=== PATIENT | female | born 1950 | race Caucasian/White ===

== ENCOUNTER 2017-06-11 11:17 | Emergency (ER) | payer MEDICARE, OTHER, MEDICAID ==
[~2017-06-11] VITALS: Ht 165.1 cm; Wt 186.0 kg
[~2017-06-11 11:17] MED LIST: ABILIFY 2 MG2 M1 PO; ABILIFY 5 MG TAB5 M1 PO; ABILIFY 5 MG TAB5 MG PO; ACCU-CHEK1 EACH; ACETAMINOPHEN650 M5; ADULT LOW DOSE81 MG PO; ADVAIR HFA 45-218 GM INH; ANTIVERT25 MG PO; ASPIR 8181 MG PO; BACTRIM DS TAB1 EACH PO; BACTROBAN CREAM30 G1; BENTYL 10 MG CA10 M1 PO; BENTYL 20 MG TA20 M1 PO; BENTYL20 MG PO; BICARSIM80 MG PO; BUSPAR 5 MG TABL5 M1 PO; BUSPIRONE HCL10 MG PO; BUSPIRONE PO; CARAFATE 1 GM TA1 G1 PO; CARISOPRODOL 3350 MG PO; CIPRO500 MG PO; COUMADIN 10MG T10 M1 PO; COUMADIN 2.5MG2.5 M1 PO; COUMADIN 5 MG TA5 M1 PO; COUMADIN7.5 MG PO; CREON DR 3,0001 EACH PO; CYMBALTA60 MG PO; DETROL LA2 MG PO; DETROL LA4 MG PO; DIAZEPAM 10 MG10 M1 PO; DIAZEPAM 5 MG5 M1 PO; DITROPAN XL10 M1 PO; FLAGYL500 MG PO; FLEXERIL PO; FUROSEMIDE 40 M40 M1 PO; GABAPENTIN100 MG PO; GLUCOPHAGE500 MG PO; GLUCOTROL5 MG PO; HYDROCODON-ACE1 EAC5 PO; HYDROCODON-ACE1 EAC7 PO; HYDROCODON-ACE1 EAC8 PO; HYDROCODONE-AP1 EA12 PO; HYDROXYZINE HCL50 MG PO; HYOSCYAMINE0.375 M2 PO; IRON325 PO; JARDIANCE10 MG PO; K-DUR 20 MEQ T20 MEQ PO; KEFLEX500 MG PO; KLOR-CON 1010 MEQ PO; KLOR-CON PO; KLOR-CON20 MEQ PO; LASIX 40 MG TAB40 M1 PO; LASIX 40 MG TAB40 M2 PO; LEVAQUIN 500 M500 M2 PO; LEVOTHYROXINE 0.1 MG PO; LEVOTHYROXINE100 MCG PO; LINZESS290 MCG PO; MEDROLDOSEPACK PO; MELOXICAM15 MG PO; METAMUCIL PAC1 UDPKT; METFORMIN HCL500 MG PO; METHOTREXATE 22.5 MG PO; MOM; MUPIROCIN1 GM TP; MUPIROCIN22 GM TP; NEURONTIN 300300 M1 PO; NITROGLYCERIN0.4 MG SUBLING; NORCO 5-325 TA1 EACH PO; NORFLEX100 MG PO; OMEPRAZOLE40 MG PO; OXYCODONE 5 MG; OXYCONTIN10 M1 PO; OXYIR 5 MG CAPSU5 M1; PERCOCET 5-3251 EACH PO; PERCOCET PO; PHENERGAN 25 MG25 M1 PO; POTASSIUM20 PO; PREDNISONE 10 M10 MG PO; PREDNISONE 20 M20 M1 PO; PREDNISONE50 MG PO; PRILOSEC 20 MG20 MG PO; PRILOSEC20 MG PO; PRILOSEC40 MG PO; PROTONIX40 M1 PO; PROZAC 20 MG20 M1 PO; PROZAC40 MG PO; RISPERDAL 1 MG T1 MG PO; RISPERIDONE PO; ROBAXIN 750 MG750 M1 PO; TEMAZEPAM15 MG PO; TRADJENTA5 MG; TRADJENTA5 MG PO; VALIUM5 MG PO; VANCO-0.9%1.75 GM/50 IVPB; VENTOLIN HFA 1818 GM INH; VIIBRYD10 MG; VIIBRYD40 MG PO; VISTARIL 25 MG25 M1 PO; XANAX 0.25 MG0.25 MG PO; XANAX1 MG PO; XARELTO10 M1; ZOFRAN4 MG PO; ZPAK PO
[2017-06-11 12:18] LABS: ANION GAP 10 mmol/L (7-16); BUN 17 mg/dL (7-18); CALCIUM 8.7 mg/dL (8.5-10.1); CHLORIDE 106 mmol/L (98-107); CO2 24 mmol/L (21-32); CREATININE 0.9 mg/dL (0.6-1.3); GLUCOSE 116 mg/dL (70-99); POTASSIUM 4.2 mmol/L (3.5-5.1); SODIUM 140 mmol/L (136-145)
[2017-06-11 12:29] LABS: ALBUMIN 3.3 g/dL (3.4-5.0); ALKALINE PHOSPHATASE 129 U/L (46-116); LIPASE 151 U/L (73-393); NT-PRO BRAIN NAT PEPTIDE 43 pg/mL (<300); SGOT 24 U/L (15-37); SGPT 25 U/L (30-65); TOTAL BILIRUBIN 0.3 mg/dL (<0.1-1.0); TOTAL PROTEIN 6.9 g/dL (6.4-8.2); TROPONIN-I LEVEL <0.06 ng/mL (<0.06)
[2017-06-11 12:48] LABS: HEMATOCRIT 32.6 % (37.0-47.0); HEMOGLOBIN 9.1 gm/dL (12.0-15.0); MCH 18.6 pg (26.0-34.0); MCHC 27.8 g/dL (28.0-37.0); MCV 66.8 fL (80.0-100.0); MPV 10.4 fl. (7.2-11.1); NUCLEATED RBCS 0 /100WBC; PLATELET COUNT* 212 thou/uL (150-400); RBC 4.89 mil/uL (4.20-5.00); RDW-CV 19.6 % (10.5-14.5); WBC 7.8 thou/uL (4.0-11.0)
[2017-06-11 12:58] LABS: PROTIME 21.9 Seconds (9.20-11.50)
[2017-06-11 12:59] LABS: APTT 38.5 Seconds (25.0-31.3); INR 2.3
[2017-06-11 13:18] LABS: INFLUENZA A ANTIGEN None Detected (None Detect); INFLUENZA B ANTIGEN None Detected (None Detect)
[2017-06-11 14:08] LABS: ABSOLUTE EOSINOPHILS 0.2 thou/uL (0.0-0.7); ABSOLUTE LYMPHOCYTES 1.7 thou/uL (0.8-5.3); ABSOLUTE MONOCYTES 0.2 thou/uL (0.0-1.2); ABSOLUTE NEUTROPHILS 5.6 thou/uL (1.6-8.1)
[2017-06-11 14:09] LABS: PLATELET ESTIMATE ADEQUATE
[2017-06-11 14:10] LABS: ANISOCYTOSIS 1+; HYPOCHROMASIA 3+; MICROCYTES 3+; OVALOCYTES 2+; POLYCHROMASIA 1+
[2017-06-11 15:25] LABS: URINE BILIRUBIN NEGATIVE (Negative); URINE BLOOD NEGATIVE (Negative); URINE CLARITY CLEAR; URINE COLOR YELLOW; URINE GLUCOSE-RANDOM 3+ (Negative); URINE KETONES TRACE (Negative); URINE LEUKOCYTES-REFLEX TRACE (Negative); URINE NITRITE-REFLEX NEGATIVE (Negative); URINE PROTEIN NEGATIVE (Negative); URINE UROBILINOGEN 0.2 E.U./dl (0.2-1.0)
[2017-06-11] MEDS ORDERED: MACROBID 100 M100 M1 PO (15:32)
[2017-06-11 15:33] LABS: SQUAMOUS >10 Many /LPF (0-3)
[2017-06-11 15:34] LABS: CASTS None Seen /LPF (None Seen); CRYSTALS None Seen /LPF (None Seen); MUCUS None Seen strn/LPF (None Seen)
[2017-06-11 15:35] LABS: URINE WBC-REFLEX 6-15 Few /HPF (0-5)
[2017-06-11 15:36] LABS: URINE RBC None Seen /HPF (0-2)
[2017-06-11 15:58] VITALS: BP 134/82
--- NOTE | 2017-06-11 16:56 | EKG ---
[place] [address] ELECTROCARDIOGRAM REPORT Name: ARMANDO MICHAEL Room: [facility]#: [id number] Admission: 06/11/17 Attend Phys: Discharge: 06/11/17 Date of : 54 Report #: [id number] THIS REPORT FOR: //name// [facility] ED Test Date: 2017-06-11 Test Time: 11:23:04 Pat Name: ARMANDO MICHAEL Department: Room: Gender: F Egg Smeller: Charles CONTRERAS : 1950 Requested By: Vidhya Lindsey Order Number: [id number] MD: Bob Castillo Measurements Intervals [place] Rate: 70 P: [place]: QRS: 30 QRSD: 110 T: 14 QT: 429 QTc: 463 Interpretive Statements Atrial fibrillation septal q waves Low voltage, precordial leads Compared to ECG 01/19/2017 09:17:16 Sinus rhythm no longer present Electronically Signed On 06-11-2017 16:56:44 AREA SALES MANAGER by Bob Castillo [email or web address] <ELECTRONICALLY SIGNED> By: Bob Castillo MD, [facility] 06/11/17 1656 1123 [id number] Bob Castillo MD, [facility] /EPI
== END 2017-06-11 15:58 | disposition home or self-care (01) ==
LOC: M.ERS 11:17
PROVIDERS: Personal Emergency Response Attendant
DX: R06.00 Dyspnea, unspecified (principal); E66.01 Morbid (severe) obesity due to excess calories; N39.0 Urinary tract infection, site not specified; M62.81 Muscle weakness (generalized); F32.9 Major depressive disorder, single episode, unspecified; F41.9 Anxiety disorder, unspecified; E11.9 Type 2 diabetes mellitus without complications; E03.9 Hypothyroidism, unspecified; Z88.8 Allergy status to other drugs, medicaments and biological substances; Z96.653 Presence of artificial knee joint, bilateral; Z86.14 Personal history of Methicillin resistant Staphylococcus aureus infection; Z90.710 Acquired absence of both cervix and uterus; Z88.0 Allergy status to penicillin; Z68.44 Body mass index [BMI] 60.0-69.9, adult

== ENCOUNTER → 2017-08-28 | Outpatient (CLI) | payer MEDICARE, OTHER, MEDICAID ==
[~2017-08-28] MED LIST changes: +CYMBALTA60 MG; +GLUCOTROL5 MG; +IPRAT-ALBUT 0.5-3 ML INH; +MACROBID 100 M100 M1 PO; +MYRBETRIQ50 MG; +PREDNISONE 10 M10 MG; +ZANTAC300 MG PO
--- NOTE | 2017-08-28 14:54 | 2DMMODE ---
[place] [address] 2 D/M-MODE ECHOCARDIOGRAM Name: ARMANDO MICHAEL Room: [facility]#: [id number] Admission: 08/28/17 Attend Phys: Gin Nunez Discharge: Date of : 54 Date of Service: 08/28/17 1454 Report #: [id number] THIS REPORT FOR: //name// APPROVED REPORT Study performed: 08/28/2017 13:45:21 EXAM: Limited 2D Echocardiogram Patient Location: Out-Patient BSA: 2.67 HR: 92 bpm BP: 140/58 mmHg Other Information Study Quality: Technically Limited Technically limited study due to body habitus. Indications Peripheral Edema Echo Enhancing Agent Indication: Endocardial border delineation Agent(s) / Amount(s) Used: Optison 6 cc Left Ventricle The left ventricle is normal size. The left ventricular systolic function is normal. The left ventricular ejection fraction is within the normal range. LVEF is 55-60%. Right Ventricle The right ventricle is normal size. Atria The left atrium size is normal. The right atrium size is normal. Aortic Valve The aortic valve is not well visualized. Mitral Valve Mitral valve is not well visualized. Tricuspid Valve Tricuspid valve is not well visualized. [place] [address] 2 D/M-MODE ECHOCARDIOGRAM Name: FERNANDAARMANDO W[place] Room: [facility].#: [id number] Admission: 08/28/17 Attend Phys: Gin Nunez Discharge: Date of : 54 Date of Service: 08/28/171453 Report #: [id number] Pulmonic Valve Pulmonic valve is not well visualized. Pericardium There is no pericardial effusion. <Conclusion> The left ventricular systolic function is normal. The left ventricular ejection fraction is within the normal range. <ELECTRONICALLY SIGNED> By: Bob Castillo MD, FACC 08/28/17 1454 53 Bob Castillo MD, FACC /INF
== END ==
LOC: M.CRD 08-21 08:00
DX: R60.0 Localized edema (principal)

== ENCOUNTER 2017-10-08 12:59 | Inpatient (IN) | payer MEDICARE, OTHER, MEDICAID ==
[~2017-10-08] VITALS: Ht 165.1 cm; Wt 182.3 kg
[~2017-10-08 12:59] MED LIST changes: -CYMBALTA60 MG; -GLUCOTROL5 MG; -IPRAT-ALBUT 0.5-3 ML INH; -MYRBETRIQ50 MG; -PREDNISONE 10 M10 MG; -ZANTAC300 MG PO
[2017-10-08] MEDS ORDERED: NORCO 5-325 TA1 EACH PO (13:09)
[2017-10-08 13:47] LABS: ANION GAP 6 mmol/L (7-16); BUN 12 mg/dL (7-18); CALCIUM 8.6 mg/dL (8.5-10.1); CHLORIDE 105 mmol/L (98-107); CO2 27 mmol/L (21-32); CREATININE 0.8 mg/dL (0.6-1.3); GLUCOSE 192 mg/dL (70-99); POTASSIUM 4.1 mmol/L (3.5-5.1); SODIUM 138 mmol/L (136-145)
[2017-10-08 13:52] LABS: APTT 39.7 Seconds (25.0-31.3); INR 2.8; PROTIME 27.1 Seconds (9.20-11.50)
[2017-10-08 13:53] LABS: ABSOLUTE BASOPHILS 0.1 thou/uL (0.0-0.2); ABSOLUTE EOSINOPHILS 0.1 thou/uL (0.0-0.7); ABSOLUTE LYMPHOCYTES 1.9 thou/uL (0.8-5.3); ABSOLUTE MONOCYTES 0.6 thou/uL (0.0-1.2); ABSOLUTE NEUTROPHILS 5.3 thou/uL (1.6-8.1); BASOPHILS 0.7 %; EOSINOPHILS 1.7 %; HEMATOCRIT 30.8 % (37.0-47.0); HEMOGLOBIN 8.9 gm/dL (12.0-15.0); LYMPHOCYTES 23.7 %; MCH 18.2 pg (26.0-34.0); MCV 62.8 fL (80.0-100.0); MONOCYTES 6.9 %; MPV 9.3 fl. (7.2-11.1); NUCLEATED RBCS 0 /100WBC; PLATELET COUNT* 223 thou/uL (150-400); RDW-CV 19.6 % (10.5-14.5)
[2017-10-08 13:57] LABS: ALBUMIN 3.1 g/dL (3.4-5.0); ALKALINE PHOSPHATASE 119 U/L (46-116); NT-PRO BRAIN NAT PEPTIDE 36 pg/mL (<300); SGOT 19 U/L (15-37); SGPT 18 U/L (30-65); TOTAL BILIRUBIN 0.3 mg/dL (<0.1-1.0); TOTAL PROTEIN 7.2 g/dL (6.4-8.2); TROPONIN-I LEVEL <0.06 ng/mL (<0.06)
[2017-10-08 14:30] LABS: PLATELET ESTIMATE ADEQUATE
[2017-10-08 14:32] LABS: ANISOCYTOSIS 1+; HYPOCHROMASIA 3+; MICROCYTES 3+; POLYCHROMASIA Occasional
[2017-10-08 14:33] LABS: OVALOCYTES Occasional; POIKILOCYTOSIS Occasional
[2017-10-08 15:13] LABS: URINE BILIRUBIN NEGATIVE (Negative); URINE BLOOD TRACE (Negative); URINE CLARITY CLEAR; URINE COLOR STRAW; URINE GLUCOSE-RANDOM 3+ (Negative); URINE KETONES NEGATIVE (Negative); URINE LEUKOCYTES-REFLEX 1+ (Negative); URINE NITRITE-REFLEX NEGATIVE (Negative); URINE PROTEIN NEGATIVE (Negative); URINE SPECIFIC GRAVITY 1.015 (1.005-1.030); URINE UROBILINOGEN 0.2 E.U./dl (0.2-1.0)
[2017-10-08 15:32] LABS: SQUAMOUS >10 Many /LPF (0-3)
[2017-10-08 15:33] LABS: CASTS None Seen /LPF (None Seen); CRYSTALS None Seen /LPF (None Seen); MUCUS None Seen strn/LPF (None Seen)
[2017-10-08 15:34] LABS: URINE RBC 0-2 Rare /HPF (0-2); URINE WBC-REFLEX 6-15 Few /HPF (0-5)
[2017-10-08 16:38] VITALS: BP 120/81
[2017-10-08 17:17] VITALS: BP 118/62
--- NOTE | 2017-10-08 17:23 | NUR ---
ADMISSION ASSESSMENT AND HISTORY COMPLETED REFER TO COMPUTER CHARTING. ELECTRICIAN SUPERVISOR SUBSTATION TRACKING SR. PATIENT RESTING IN BED REPORTING CHEST AND HEAD PAIN, MEDICATIONS GIVEN IN ER. BED IN LOW AND LOCKED POSITION. CALL LIGHT WITHIN REACH. 2 LITERS O2 VIA NASAL CANNULA. IV SALINE LOCKED. PATIENT EDUCATED ON BEING NPO AT MIDNIGHT FOR CARDILOGY. PATIENT REPORTING NO QUESTIONS OR CONCERNS AT THIS TIME. WILL CONTINUE TO MONITOR THIS SHIFT.
[2017-10-08 20:00] VITALS: BP 115/55
[2017-10-09] VITALS: BP 125/51
[2017-10-09 04:00] VITALS: BP 128/67
--- NOTE | 2017-10-09 07:48 | NUR ---
ASSUMED PT CARE AT 19:15. PT IS ALERT AWAKE ORIENTED X4. SHE COMPLAINS OF BAD RASH AND YEAST INFECTION IN PERINEUM AREA. PERINEUM AREA ASSESSED. REDNESS NOTICED IN CREASES. VITALS SIGNS ARE WITHIN NORMAL LIMIT. ON 2L O2 NC. SATURATION IS 96%. PT GETS UP ON OWN TO USE THE RESTROOM. HAS DIFFICULTY WHIPPING ON HER OWN. COMPLAINT ABOUT RASH AND YEAST WAS COMMUNICATED TO DR RIB BENDER. OBNETIME ORDER FOR FLUCONAZOLE WAS ORDERED AND ADMINISTERED ORDERED. BEFORE BEDTIME PAIN MED AND SLEEPING PILL WERE ADMINISTERED. IN THE AM. PT STILL COMPLAINS OF YEAST INFECTION. DR RIB BENDER WAS PAGED AND SUGGESTED TO ORDER SOME VAGINAL CREAM FOR BETTER CARE. PT IS NPO SINCE MIDNIGHT FOR CARDIOLOGY CONSULT. ACCUCHECK WAS CHECKEF AT MIDNINGHT AND DID NOT NEED INSULIN PER SLIDING SCALE. SLEPT WELL DRUING NIGHT AFTER SLEEPING PILL MED.
[2017-10-09 08:00] VITALS: BP 132/76
--- NOTE | 2017-10-09 10:25 | NUR ---
CM SPOKE TO THE PATIENT TO DISCUSS HOME SITUATION TO DISCUSS HOME SITUATION, DISCHARGE PLANNING, AND TO INFORM OF THE ROLE OF CM. PATIENT ALERT AND ORIENTED. PATIENT INDEPENDENT WITH ADL'S. PATIENT ABLE TO PERFORM COOKING, CLEANING, AND DRIVING. PATIENT INFORMS THAT HER ONLY SOURCE OF SUPPORT IS A FRIEND NOHEMI. PATIENT OWNS A WHEELCHAIR, CANE, AND WALKER, BUT ONLY OCCATIONALLY USED THE WALKER FOR MOBILITY. PATIENT HAS A HX OF AFTER A SURGERY, BUT COULD NOT RECALL THE NAME. PATIENT HAS A HX OF SNF AT [place] AND [facility]. PATIENT PLANS TO RETURN HOME AT D/C, AND DOES NOT ANTICIPATE ANY DISCHARGE PLANNING NEEDS. CM WILL REMAIN AVAILABLE TO ASSIST AND FOLLOW NEEDED.
[2017-10-09 11:30] VITALS: BP 117/51
[2017-10-09 15:48] VITALS: BP 144/73
--- NOTE | 2017-10-09 16:18 | EKG ---
[place] [address] ELECTROCARDIOGRAM REPORT Name: ARMANDO MICHAEL Room: [place] [address] ADM IN [facility].#: [id number] Admission: 10/08/17 Attend Phys: Castro Stahl Discharge: Date of : 54 Report #: [id number] THIS REPORT FOR: //name// [facility] ED Test Date: 2017-10-08 Test Time: 13:07:52 Pat Name: ARMANDO MICHAEL Department: Room: Gender: F Vascular Ultrasound Technician: : 1950 Requested By: Vidhya Lindsey Order Number: [id number] MD: David Albert Measurements Intervals [place] Rate: 88 P: [place]: QRS: 29 QRSD: 88 T: -3 QT: 362 QTc: 438 Interpretive Statements Sinus rhythm with pac's Low voltage, precordial leads Abnormal R-wave progression, early transition Borderline T abnormalities, anterior leads Compared to ECG 06/11/2017 11:23:04 T-wave abnormality now present Q waves no longer present Electronically Signed On 10-09-2017 16:18:00 CDT by David Albert [email or web address] <ELECTRONICALLY SIGNED> By: David Albert MD, [facility] 10/09/17 1618 1307 1307 David Albert MD, FAC /EPI
--- NOTE | 2017-10-09 16:39 | NUR ---
RECEIVED REPORT FROM PABLITO HENRANDEZ. ASSUMED CARE OF PT AROUND 0730. PT A&O X4, PLEASANT. VSS. O2 SAT 97% ON RA. PT STATES SHE WEARS A CPAP AT NIGHT AT HOME. PADDER CUSHION IN PLACE TRACING SR. LUNGS CLEAR/DIMINISHED IN THE BASES. AM ASSESSMENT AND VITALS COMPLETED CHARTED. IV TO LEFT AC SALINE LOCKED. PT REPORTED EPIGASTRIC PAIN LATE THIS AM THAT WAS RELIEVED WITH PO PAIN MEDICATION. PT NPO THIS AM FOR CARDIOLOGY CONSULT. PT ABLE TO EAT LUNCH WITHOUT DIFFICULTY. PT UP AD RADHA IN ROOM. PT CALLS OUT FOR ASSISTANCE WHEN SHE USES THE RESTROOM - NEEDS HELP CLEANING PARISH AREA. EXTENSIVE RED, EXCORIATED RASH NOTED UNDER ABDOMINAL FOLD AND IN PARISH AREA. DOCTOR NOTIFIED AND TREATMENT STARTED. PT AWAITING GI CONSULT. PT CURRENTLY WATCHING TV IN BED. LOW FALL RISK PRECAUTIONS IN PLACE. CALL LIGHT IS WITHIN REACH, HOURLY ROUNDING PERFORMED. WCTM FOR DURATION OF SHIFT.
--- NOTE | 2017-10-09 18:28 | NUR ---
VSS. O2 SAT >90% ON RA. PIE MAKER IN PLACE WITH NO CHANGES. PT DENIES PAIN AT THIS TIME. PT STATES SHE WOULD LIKE HOME HEALTH AT DISCHARGE. WILL CONSULT CASE MANAGEMENT. PT CURRENTLY SITTING UP IN BED. LOW FALL RISK PRECAUTIONS IN PLACE. CALL LIGHT IS WITHIN REACH. HOURLY ROUNDING PERFORMED. WCTM FOR DURATION OF SHIFT.
[2017-10-09 20:00] VITALS: BP 135/56
[2017-10-10] VITALS: BP 127/75
--- NOTE | 2017-10-10 04:13 | NUR ---
ASSUMED PT CARE AT 19:15. REPORT RECEIVED FROM NURSE. PT IS ALERT AWAKE ORIENTED X 4. NSR ON THE MONITOR. VITAL SIGNS ARE WITHIN NORMAL LIMIT. IV LINE PATENT COMPALIN OF PAIN INSHOULDER AREA, PAIN MED WAS ADMINSTERED ALONG WITH OHTER MED AND SOME SLEEPING PILL. NYSTATIN CREAM APPLIED IN ABDOMINAL CREASSES AND PERINEUM AREA PRESCRIBED. PT STATED THAT IT FEELS BETTER AFTER CREAME WAS APPLIED. SHE WANTS THE OXYGEN ON FOR THE NIGHT. SO O2 2 L NC SATURATION IS 95% ON RA. PT SLEPT DURING WHOLE NIGHT AFTER TAKEN SLEEPING PILL. WILL CONTINUE TO MONITOR
[2017-10-10 04:39] VITALS: BP 137/71
[2017-10-10 08:00] VITALS: BP 133/64
[2017-10-10 11:42] VITALS: BP 125/49
--- NOTE | 2017-10-10 15:23 | NUR ---
RECEIVED REPORT FROM LEANNE HERNANDEZ. ASSUMED CARE OF PT AROUND 0730. PT A&O X4. VSS. O2 SAT 99% ON 2L PER NC, TITRATED TO RA. INTERMEDIATE PROJECT MANAGER IN PLACE TRACING SR. AM ASSESSMENT AND VITALS COMPLETED CHARTED. IV TO LEFT AC INTACT AND SALINE LOCKED. PT REPORTED EPIGASTRIC PAIN AND BACK PAIN THIS AM THAT HAS BEEN MANAGED WITH PO PAIN MEDICATION. PT WENT DOWN FOR BARIUM SWALLOW THIS AFTERNOON - SEE RESULTS. PT EATING AND DRINKING WITHOUT ISSUE. NYSTATIN CREAM APPLIED TO PT'S RASH UNDER PANIS AND IN PARISH AREA. PT INFORMED OF PLAN OF CARE. PT COMMUNICATES UNDERSTANDING. PT HOPING TO GO HOME TOMORROW. PT CURRENTLY RESTING IN BED. CALL LIGHT IS WITHIN REACH, LOW FALL RISK PRECAUTIONS ARE IN PLACE. HOURLY ROUNDING PERFORMED. WCTM.
[2017-10-10 15:58] VITALS: BP 140/79
--- NOTE | 2017-10-10 18:22 | NUR ---
PT REMAINS A&O X4. VSS. O2 SAT >90% ON RA. WOOLING MACHINE OPERATOR REMAINS IN PLACE WITH NO CHANGES. PT ABLE TO EAT DINNER, BUT REQUESTED [place] [employer] FOR INDIGESTION. PT HAD SEVERAL VISITORS THIS AFTERNOON. WOOLING MACHINE OPERATOR REMAINS IN PLACE WITH NO CHANGES THIS SHIFT. IV TO LEFT AC INTACT AND SALINE LOCKED. PT CURRENTLY RESTING IN BED. LOW FALL PRECAUTIONS ARE IN PLACE. CALL LIGHT IS WITHIN REACH. HOURLY ROUNDING PERFORMED. WCTM FOR DURATION OF SHIFT.
[2017-10-10 20:00] VITALS: BP 113/51
[2017-10-11 00:53] VITALS: BP 117/42
--- NOTE | 2017-10-11 02:33 | NUR ---
ASSUMED PT CARE AT 19:15. REPORT RECEIVED FORM NURSE. PT IS ALERT, AWAKE, ORIETED X 4. SINUS RYTHM ONTHE MONITOR. ASSESSMENT PERFORMED. REFER TO RAQUEL. O2 SATURATION 95 ON RA. DISPLAYS NO SOB EXCEPT WHEN MOVING UP IN BED.ACCUCHECK 220. 4 UNITS OF LISPRO WAS ADMISTERED. PT IS CONCERNED ABOUT WHAT THE GI DOCTOR WILL DECIDE ABOUT HER CASE. I REINFORCE THAT THE DOCTOR WILL SEE HER TOMORROW AND GIVE HER MORE INFO ABOUT FOLLOW UP CARE. COMPLAIN OF PAIN LEVEL OF 6 IN THE CHEST AREA THAT RADIATES TO THE SHOULDER AND BACK. HYDROCODONE WAS AMDINSTERED TO CONTROL PAIN. SLEEPING PILL GIVEN TO HELP WITH SLEEP. NYSTATIN CREAM APPLIED IN CREASES AND PERINEUM AREA. MEDICATIONS WERE ADMNISTERED ORDERED. SNACK WAS PROVIDED. IV LINE IS PATENT. PT IS RESTING IN BED. WILL CONTINUE TO MONITOR.
[2017-10-11 04:11] VITALS: BP 112/58
[2017-10-11 08:00] VITALS: BP 122/75
--- NOTE | 2017-10-11 10:04 | NUR ---
Nutrition: Pt admitted for chest pain. Assessed for BMI >40. Pt has worsening GERD. To see GI today. CHO controlled diet ordered. BG 192, alb 3.1. Wt: 402#. No nutrition intervention needed today. Consider Low to Mild nutrition risk.
--- NOTE | 2017-10-11 10:21 | NUR ---
ASSUMED PT CARE AT 0700 PT IS ALERT AND ORIENTED X 4 PT DENIES PAIN OR SOA ON RA PT STATES PAIN MEDS HELPED, PT IS UP AD RADHA PT IS NOT A FALL RISK, PT IS SR ON THE MONITOR, AWAITING GI TO SEE PT FOR POSSIBLE DISCHRGE, PT C/O LOOSE STOOLS PAGED PHYSICIAN FOR ORDER FOR MEDS AWAITING CALL BACK, WILL CONTINUE TO MONITOR
[2017-10-11] MEDS ORDERED: OMEPRAZOLE40 MG PO (10:42)
[2017-10-11] MEDS ORDERED: ZANTAC300 MG PO (10:42)
[2017-10-11 11:52] VITALS: BP 129/53
[2017-10-11 12:12] VITALS: BP 129/53
[2017-10-11 13:26] VITALS: BP 129/53
--- NOTE | 2017-10-13 19:28 | CON ---
[address] [address] CONSULTATION Name: ARMANDO MICHAEL Room: [address] IN M.R.#: [id number] Admission: 10/08/17 Attend Phys: Castro Stahl Discharge: 10/11/17 Date of : 54 Report #: [id number] THIS REPORT FOR: //name// CC: Andrew Mabry DATE OF SERVICE: 10/10/2017 ADDENDUM REFERRING PHYSICIAN: Abhi Mabry, DO I have seen and examined the patient and I am not terribly impressed with her medical history. She has worsening acid reflux for which we will give her an increased dose of her omeprazole from 40 mg once daily to 40 mg twice daily, but add some ranitidine 300 mg at bedtime. Since she ate breakfast this morning, is not having any major issues that warrant endoscopic evaluation or endoscopic studies at this time. However, we can arrange for her to have an upper endoscopy done as an outpatient and at that time place a small bowel capsule for her recurrent and longstanding anemia. Since she is anxious to go home, it is okay from my standpoint for her to go home. I have already placed prescriptions for omeprazole 40 mg twice daily and Zantac 300 mg at bedtime on her chart. Our office will contact her to arrange for upper endoscopy and small bowel capsule placement. In addition, she needs some additional lab work to include CBC, CMP, sed rate, ferritin, hemoglobin electrophoresis soluble transferrin receptor assay and a B12 level prior to consideration of EGD with small bowel capsule study. Also after review of records from [place] and we will request records from Dr. Gomez to see if the patient ever followed up with her for her severe anemia, which appears to be related to iron-deficiency anemia. I have discussed these findings with the patient as well and she is agreeable to the same. <ELECTRONICALLY SIGNED> By: Everton Aviles DO 10/13/17 1928 1259 1406Everton Aviles DO /nt
--- NOTE | 2017-10-13 19:28 | CON ---
[facility] [address] [place] [address] CONSULTATION Name: ARMANDO MICHAEL Room: [address] IN M.R.#: [id number] Admission: 10/08/17 Attend Phys: Castro Stahl Discharge: 10/11/17 Date of : 54 Report #: [id number] THIS REPORT FOR: //name// CC: Andrew Mabry DO DICTATED BY: Karen Mtz [facility] DATE OF SERVICE: 10/10/2017 PRIMARY CARE PHYSICIAN: Andrew Kauffman M.D. The patient was seen and physically examined by myself at the time of consultation. REASON FOR CONSULTATION: Reflux and noncardiac chest pain. HISTORY OF PRESENT ILLNESS: This 67-year-old female presented to the Emergency Room after being seen by her PCP that morning that she went in due to increasing shortness of air which started the previous morning. The patient states that she has been having worsening of her shortness of air over the last couple of weeks, which she noted more recently with walking and moving. However, she had quit taking her Lasix because she was not making it to the bathroom room and having incontinence. She had also noticed some chest discomfort, which she states that it was substernal, some epigastric and then it radiated up into her shoulders and back area. The patient has had a cholecystectomy done in the past. The patient was last seen by us in 01/2017, at which time, she underwent an EGD and colonoscopy that showed a 2-cm hiatal hernia and erosive gastritis that was negative for H. pylori. Colonoscopy revealed sigmoid diverticulosis and moderate external hemorrhoids. The patient was to follow up with us in the office, but never did, to get a small bowel capsule for her further workup regarding her microcytic anemia. The patient is currently taking omeprazole 40 mg b.i.d. at home. She states that she will have worsening of her GERD, particularly after eating, though she denies any nausea or vomiting at this time. The patient states that her bowels move daily to every other day, soft and formed and no evidence of any bright red blood or any melena has been noted. The patient was seen by Cardiology on this admission and it was ruled noncardiac in nature and they have signed off. ALLERGIES: PENICILLIN AND REGLAN. MEDICATIONS: From home include Lasix, Glucophage, warfarin, Synthroid, Abilify, omeprazole, lancets, Tradjenta, Xanax, Advair, Jardiance, temazepam, Flexeril, [place] [address] CONSULTATION Name: ARMANDO MICHAEL Room: [address] IN M.R.#: [id number] Admission: 10/08/17 Attend Phys: Castro Stahl Discharge: 10/11/17 Date of : 54 Report #: [id number] Neurontin, Bentyl, Creon and Paia. PAST MEDICAL HISTORY: Hypothyroidism, depression, anxiety, morbid obesity, osd-vvkzgnu-cytzaaywq diabetic, chronic back pain and history of a PE in 2010. PAST SURGICAL HISTORY: She has had back surgery for herniated disk, bilateral knee replacements, left breast biopsy and hysterectomy. FAMILY HISTORY: Negative. SOCIAL HISTORY: Denies any alcohol, tobacco or illegal drug use. REVIEW OF SYSTEMS: Twelve-point review of systems is essentially negative, except what is mentioned in the HPI. PHYSICAL EXAMINATION: VITAL SIGNS: Temperature 36.3, pulse 71, respirations 19 and blood pressure 133/64. HEART: Regular rate and rhythm. LUNGS: Diminished, but clear. ABDOMEN: Soft. Positive bowel sounds in all 4 quadrants, with some xzwxsgcbuy-ja-qciuiwscid discomfort noted to palpation. Please note that the patient is morbidly obese. LABORATORY DATA: Hemoglobin is 8.9 with an MCV of 62.8, hematocrit is 30.8, white count is 8 and platelets 223,000. PT is 27.1, INR is 2.8. Sodium 138, potassium 4.1, chloride 105, CO2 of 27, BUN is 12, creatinine 0.8, GFR 72 and glucose is 192. Please note that the patient did have a CT scan back in 01/2017 during that admission that showed a fatty liver and had an area of thickening at the tail of the pancreas that was unchanged for the past 3 years. IMPRESSION: 1. Epigastric pain. 2. Worsening of her gastroesophageal reflux disease, particularly after eating. 3. Chronic anemia, microcytic. 4. Anticoagulant therapy, warfarin secondary to pulmonary embolism. 5. Morbid obesity. PLAN: 1. Barium swallow today. 2. If negative, may consider an EGD that will need to be off her anticoagulant therapy. 3. The patient will still need to follow up as an outpatient for her small bowel capsule regarding her anemia. 4. Further recommendations to be made after Dr. Aviles sees the patient. [address] [address] CONSULTATION Name: ARMANDO MICHAEL Room: [address] IN [place].#: [id number] Admission: 10/08/17 Attend Phys: Castro Stahl Discharge: 10/11/17 Date of : 54 Report #: [id number] Thank you for allowing us to participate in this patient's care. Please do not hesitate to call with any questions in regard to this consult. ADDENDUM REFERRING PHYSICIAN: Abhi Mabry, DO I have seen and examined the patient and I am not terribly impressed with her medical history. She has worsening acid reflux for which we will give her an increased dose of her omeprazole from 40 mg once daily to 40 mg twice daily, but add some ranitidine 300 mg at bedtime. Since she ate breakfast this morning, is not having any major issues that warrant endoscopic evaluation or endoscopic studies at this time. However, we can arrange for her to have an upper endoscopy done as an outpatient and at that time place a small bowel capsule for her recurrent and longstanding anemia. Since she is anxious to go home, it is okay from my standpoint for her to go home. I have already placed prescriptions for omeprazole 40 mg twice daily and Zantac 300 mg at bedtime on her chart. Our office will contact her to arrange for upper endoscopy and small bowel capsule placement. In addition, she needs some additional lab work to include CBC, CMP, sed rate, ferritin, hemoglobin electrophoresis soluble transferrin receptor assay and a B12 level prior to consideration of EGD with small bowel capsule study. Also after review of records from [place] and we will request records from Dr. Gomez to see if the patient ever followed up with her for her severe anemia, which appears to be related to iron-deficiency anemia. I have discussed these findings with the patient as well and she is agreeable to the same. <ELECTRONICALLY SIGNED> By: Everton Aviles DO 10/13/17 1928 1053 1113Garline Aviles DO /nt
== END 2017-10-11 13:58 | disposition home health service (06) | DRG 377 ==
LOC: M.ERS 12:59 → M.2W 14:35 → M.TBA-ER 14:35 → M.2W 17:10
PROVIDERS: Personal Emergency Response Attendant; ADMIT Internal Medicine
DX: K29.01 Acute gastritis with bleeding (principal); I50.33 Acute on chronic diastolic (congestive) heart failure; Z68.44 Body mass index [BMI] 60.0-69.9, adult; E66.01 Morbid (severe) obesity due to excess calories; F32.9 Major depressive disorder, single episode, unspecified; F41.9 Anxiety disorder, unspecified; E03.9 Hypothyroidism, unspecified; K21.9 Gastro-esophageal reflux disease without esophagitis; D50.9 Iron deficiency anemia, unspecified; E11.9 Type 2 diabetes mellitus without complications; Z96.653 Presence of artificial knee joint, bilateral; Z86.14 Personal history of Methicillin resistant Staphylococcus aureus infection; Z90.710 Acquired absence of both cervix and uterus; Z79.01 Long term (current) use of anticoagulants; Z79.84 Long term (current) use of oral hypoglycemic drugs; Z79.899 Other long term (current) drug therapy; Z88.0 Allergy status to penicillin; Z88.8 Allergy status to other drugs, medicaments and biological substances; Z80.8 Family history of malignant neoplasm of other organs or systems; Z83.3 Family history of diabetes mellitus

== ENCOUNTER 2017-12-08 11:27 | Observation (INO) | payer MEDICARE, OTHER, MEDICAID ==
[~2017-12-08] VITALS: Ht 165.1 cm; Wt 178.7 kg
[~2017-12-08 11:27] MED LIST changes: +ZANTAC300 MG PO
[2017-12-08 11:31] VITALS: BP 115/81
[2017-12-08 11:53] LABS: ABSOLUTE EOSINOPHILS 0.1 thou/uL (0.0-0.7); ABSOLUTE LYMPHOCYTES 1.8 thou/uL (0.8-5.3); ABSOLUTE MONOCYTES 0.5 thou/uL (0.0-1.2); ABSOLUTE NEUTROPHILS 3.4 thou/uL (1.6-8.1); BASOPHILS 0.8 %; EOSINOPHILS 1.6 %; HEMATOCRIT 39.3 % (37.0-47.0); HEMOGLOBIN 11.9 gm/dL (12.0-15.0); MCH 22.3 pg (26.0-34.0); MCHC 30.4 g/dL (28.0-37.0); MCV 73.3 fL (80.0-100.0); MONOCYTES 8.7 %; NUCLEATED RBCS 0 /100WBC; PLATELET COUNT* 190 thou/uL (150-400); POLYS 57.9 %; RBC 5.36 mil/uL (4.20-5.00); RDW-CV 29.1 % (10.5-14.5); WBC 5.9 thou/uL (4.0-11.0)
[2017-12-08 11:59] LABS: ANION GAP 5 mmol/L (7-16); BUN 10 mg/dL (7-18); CALCIUM 8.7 mg/dL (8.5-10.1); CHLORIDE 106 mmol/L (98-107); CO2 30 mmol/L (21-32); CREATININE 0.9 mg/dL (0.6-1.3); GLUCOSE 178 mg/dL (70-99); POTASSIUM 4.5 mmol/L (3.5-5.1); SODIUM 141 mmol/L (136-145)
[2017-12-08 12:10] LABS: ALBUMIN 3.2 g/dL (3.4-5.0); ALKALINE PHOSPHATASE 124 U/L (46-116); NT-PRO BRAIN NAT PEPTIDE 22 pg/mL (<300); SGOT 25 U/L (15-37); SGPT 43 U/L (30-65); TOTAL BILIRUBIN 0.3 mg/dL (<0.1-1.0); TOTAL PROTEIN 7.1 g/dL (6.4-8.2); TROPONIN-I LEVEL <0.06 ng/mL (<0.06)
[2017-12-08 12:12] LABS: APTT 43.1 Seconds (25.0-31.3); INR 3.3; PROTIME 31.6 Seconds (9.20-11.50)
[2017-12-08 12:31] LABS: ANISOCYTOSIS 2+; HYPOCHROMASIA 2+; MICROCYTES 1+
[2017-12-08 12:32] LABS: OVALOCYTES 1+; PLATELET ESTIMATE ADEQUATE
[2017-12-08 12:47] LABS: BE 0 mmol/L (-2 to +3); HCO3 25.1 mmol/L (22.0-26.0); PCO2 42.5 mmHg (35.0-45.0); PO2 105.5 mmHg (75.0-100.0); pH 7.389 (7.340-7.450)
[2017-12-08 15:38] VITALS: BP 125/45
[2017-12-08 15:50] VITALS: BP 141/85
[2017-12-08 20:00] VITALS: BP 143/60
[2017-12-09] VITALS: BP 125/74
[2017-12-09 04:00] VITALS: BP 128/68
[2017-12-09 08:00] VITALS: BP 138/73
[2017-12-09 11:39] VITALS: BP 188/60
[2017-12-09 15:53] VITALS: BP 133/75
--- NOTE | 2017-12-09 19:30 | EKG ---
[place] [address] ELECTROCARDIOGRAM REPORT Name: MARCOCURTIS WEIJANAE PERRYE Room: [address] IN [facility]#: [id number] Admission: 12/08/17 Attend Phys: Radha Becker MD Discharge: Date of : 54 Report #: [id number] THIS REPORT FOR: //name// [facility] ED Test Date: 2017-12-08 Test Time: 11:35:38 Pat Name: ARMANDO MICHAEL Department: Room: Gender: F Window Shade Ring Sewer: : 1950 Requested By: Cary Shea Order Number: [id number] MD: Rasheed White Measurements Intervals [place] Rate: 70 P: [place]: QRS: 44 QRSD: 109 T: -19 QT: 442 QTc: 477 Interpretive Statements Sinus rhythm with artifact Low voltage, precordial leads Borderline prolonged QT interval Baseline wander in lead(s) V2 Compared to previous EKG T-wave abnormality no longer present Electronically Signed On 12-09-2017 19:30:17 CDT by Rasheed White [email or web address] <ELECTRONICALLY SIGNED> By: Rasheed White MD, FACC 12/09/17 1930 1135 1135 Rasheed White MD, [facility] /EPI
[2017-12-09 20:00] VITALS: BP 131/56
[2017-12-10] VITALS: BP 118/47
[2017-12-10 04:00] VITALS: BP 128/58
[2017-12-10 08:17] VITALS: BP 142/79
[2017-12-10] MEDS ORDERED: NITROGLYCERIN0.4 MG SUBLING (09:48)
[2017-12-10] MEDS ORDERED: ASPIR 8181 MG PO (09:48)
[2017-12-10] MEDS ORDERED: VENTOLIN HFA 1818 GM INH (09:48)
[2017-12-10] MEDS ORDERED: IPRAT-ALBUT 0.5-3 ML INH (09:54)
[2017-12-10 11:01] VITALS: BP 142/79
== END 2017-12-10 11:47 | disposition home or self-care (01) ==
LOC: M.ERS 11:27 → M.TBA-ER 15:12 → M.2W 15:12
PROVIDERS: Nurse Practitioner Family; Personal Emergency Response Attendant; ADMIT Internal Medicine
DX: I20.0 Unstable angina (principal); R07.9 Chest pain, unspecified; J44.1 Chronic obstructive pulmonary disease with (acute) exacerbation; E66.01 Morbid (severe) obesity due to excess calories; I10 Essential (primary) hypertension; E11.8 Type 2 diabetes mellitus with unspecified complications; R53.81 Other malaise; F41.9 Anxiety disorder, unspecified; F32.9 Major depressive disorder, single episode, unspecified; E03.9 Hypothyroidism, unspecified; K29.70 Gastritis, unspecified, without bleeding; Z98.890 Other specified postprocedural states; Z90.710 Acquired absence of both cervix and uterus

== ENCOUNTER → 2018-02-05 | Outpatient (CLI) | payer MEDICARE, OTHER, MEDICAID ==
[~2018-02-05] MED LIST changes: +CYMBALTA60 MG; +GLUCOTROL5 MG; +IPRAT-ALBUT 0.5-3 ML INH; +MYRBETRIQ50 MG; +PREDNISONE 10 M10 MG
== END ==
LOC: M.MRI 02-03 07:30
DX: R25.1 Tremor, unspecified (principal); Z88.0 Allergy status to penicillin

== ENCOUNTER 2018-02-24 20:02 | Emergency (ER) | payer MEDICARE, OTHER, MEDICAID ==
[~2018-02-24] VITALS: Ht 165.1 cm; Wt 179.6 kg
[~2018-02-24 20:02] MED LIST changes: -CYMBALTA60 MG; -GLUCOTROL5 MG; -MYRBETRIQ50 MG; -PREDNISONE 10 M10 MG
[2018-02-24] MEDS ORDERED: CYMBALTA60 MG (20:26)
[2018-02-24] MEDS ORDERED: PREDNISONE 10 M10 MG (20:27)
[2018-02-24] MEDS ORDERED: GLUCOTROL5 MG (20:27)
[2018-02-24] MEDS ORDERED: MYRBETRIQ50 MG (20:28)
[2018-02-24 20:58] LABS: ABSOLUTE LYMPHOCYTES 2.7 thou/uL (0.8-5.3); ABSOLUTE NEUTROPHILS 5.4 thou/uL (1.6-8.1); HEMATOCRIT 44.6 % (37.0-47.0); NUCLEATED RBCS 0 /100WBC
[2018-02-24 21:03] LABS: CALCIUM 8.7 mg/dL (8.5-10.1); CREATININE 0.8 mg/dL (0.6-1.3); POTASSIUM 4.3 mmol/L (3.5-5.1)
[2018-02-24 21:04] LABS: ABSOLUTE BASOPHILS 0.1 thou/uL (0.0-0.2); ABSOLUTE EOSINOPHILS 0.1 thou/uL (0.0-0.7); ABSOLUTE MONOCYTES 0.6 thou/uL (0.0-1.2); BASOPHILS 1.4 %; EOSINOPHILS 0.6 %; HEMOGLOBIN 14.7 gm/dL (12.0-15.0); INR 1.6; LYMPHOCYTES 30.4 %; MCH 27.3 pg (26.0-34.0); MONOCYTES 7.2 %; MPV 9.2 fl. (7.2-11.1); PLATELET COUNT* 185 thou/uL (150-400); POLYS 60.4 %; PROTIME 16.7 Seconds (9.20-11.50); RBC 5.38 mil/uL (4.20-5.00); RDW-CV 19.6 % (10.5-14.5)
[2018-02-24 21:07] LABS: ALBUMIN 3.1 g/dL (3.4-5.0); TOTAL BILIRUBIN 0.5 mg/dL (<0.1-1.0); TOTAL PROTEIN 6.8 g/dL (6.4-8.2)
[2018-02-24 21:37] LABS: PLATELET ESTIMATE ADEQUATE
[2018-02-24 21:38] LABS: ANISOCYTOSIS 1+; LARGE PLATELETS OCCASIONAL
[2018-02-24 22:56] VITALS: BP 149/86
== END 2018-02-24 22:57 | disposition home or self-care (01) ==
LOC: M.ERS 20:02
PROVIDERS: Emergency Medicine
DX: S20.211A Contusion of right front wall of thorax, initial encounter (principal); W18.2XXA Fall in (into) shower or empty bathtub, initial encounter; Y93.89 Activity, other specified; Y92.89 Other specified places as the place of occurrence of the external cause; Y99.8 Other external cause status; F32.9 Major depressive disorder, single episode, unspecified; F41.9 Anxiety disorder, unspecified; E11.9 Type 2 diabetes mellitus without complications; E66.9 Obesity, unspecified; Z68.44 Body mass index [BMI] 60.0-69.9, adult; E03.9 Hypothyroidism, unspecified; Z90.710 Acquired absence of both cervix and uterus; Z96.653 Presence of artificial knee joint, bilateral; Z88.0 Allergy status to penicillin; Z88.8 Allergy status to other drugs, medicaments and biological substances

== ENCOUNTER 2018-04-23 20:36 | Inpatient (IN) | payer MEDICARE, OTHER ==
[~2018-04-23] VITALS: Ht 162.6 cm; Wt 178.7 kg
[~2018-04-23 20:36] MED LIST changes: +MYRBETRIQ50 MG PO; +PREDNISONE 10 M10 MG
[2018-04-23 20:45] VITALS: BP 145/70
[2018-04-23 21:21] LABS: ABSOLUTE LYMPHOCYTES 1.7 thou/uL (0.8-5.3); ABSOLUTE MONOCYTES 0.9 thou/uL (0.0-1.2); ABSOLUTE NEUTROPHILS 9.6 thou/uL (1.6-8.1); BASOPHILS 0.2 %; EOSINOPHILS 0.3 %; HEMATOCRIT 41.7 % (37.0-47.0); HEMOGLOBIN 13.5 gm/dL (12.0-15.0); LYMPHOCYTES 13.7 %; MCH 28.1 pg (26.0-34.0); MCHC 32.5 g/dL (28.0-37.0); MCV 86.6 fL (80.0-100.0); MONOCYTES 7.5 %; MPV 9.4 fl. (7.2-11.1); NUCLEATED RBCS 0 /100WBC; PLATELET COUNT* 215 thou/uL (150-400); POLYS 78.3 %; RBC 4.82 mil/uL (4.20-5.00); RDW-CV 15.6 % (10.5-14.5); WBC 12.2 thou/uL (4.0-11.0)
[2018-04-23 21:54] LABS: CALCIUM 8.7 mg/dL (8.5-10.1); POTASSIUM 3.8 mmol/L (3.5-5.1); TOTAL BILIRUBIN 0.7 mg/dL (<0.1-1.0); TOTAL PROTEIN 6.7 g/dL (6.4-8.2)
[2018-04-23 22:06] LABS: PROTIME 200.2 Seconds (9.20-11.50)
[2018-04-23 23:31] LABS: URINE BILIRUBIN NEGATIVE (Negative); URINE BLOOD 2+ (Negative); URINE CLARITY CLEAR; URINE COLOR YELLOW; URINE GLUCOSE-RANDOM 3+ (Negative); URINE KETONES TRACE (Negative); URINE LEUKOCYTES-REFLEX NEGATIVE (Negative); URINE NITRITE-REFLEX NEGATIVE (Negative); URINE PROTEIN NEGATIVE (Negative); URINE UROBILINOGEN 0.2 E.U./dl (0.2-1.0)
[2018-04-23 23:44] LABS: BACTERIA-REFLEX >30 Many /HPF (None Seen); CRYSTALS None Seen /LPF (None Seen); FINE GRANULAR CASTS 0-3 Few /LPF (None Seen); HYALINE CASTS 0-3 Few /LPF (None Seen); MUCUS 4-6 Moderate strn/LPF (None Seen); SQUAMOUS 4-10 Moderate /LPF (0-3); URINE WBC-REFLEX 6-15 Few /HPF (0-5)
[2018-04-24] VITALS (15 sets, daily range): BP systolic 101–152; BP diastolic 50–110
[2018-04-24 05:53] LABS: HEMATOCRIT 41.8 % (37.0-47.0); HEMOGLOBIN 13.3 gm/dL (12.0-15.0); MCHC 31.9 g/dL (28.0-37.0); MCV 87.8 fL (80.0-100.0); MPV 9.5 fl. (7.2-11.1); RBC 4.76 mil/uL (4.20-5.00); RDW-CV 15.9 % (10.5-14.5); WBC 12.6 thou/uL (4.0-11.0)
[2018-04-24 06:14] LABS: ALBUMIN 2.9 g/dL (3.4-5.0); CALCIUM 8.3 mg/dL (8.5-10.1); CREATININE 1.4 mg/dL (0.6-1.3); TOTAL BILIRUBIN 0.7 mg/dL (<0.1-1.0); TOTAL PROTEIN 6.8 g/dL (6.4-8.2)
[2018-04-24 06:15] LABS: POTASSIUM 4.8 mmol/L (3.5-5.1)
[2018-04-24 06:27] LABS: PROTIME > 210.1 Seconds (9.20-11.50)
[2018-04-24 06:28] LABS: INR > 18.0
[2018-04-24 06:41] LABS: BE -4.6 mmol/L (-2 to +3); HCO3 27.5 mmol/L (22.0-26.0); PCO2 89.6 mmHg (35.0-45.0); PO2 63.3 mmHg (75.0-100.0)
[2018-04-24 07:29] LABS: HCO3 26.4 mmol/L (22.0-26.0)
[2018-04-24 07:30] LABS: PCO2 74.7 mmHg (35.0-45.0); PO2 126.5 mmHg (75.0-100.0); pH 7.166 (7.340-7.450)
[2018-04-24 10:52] LABS: BE -2.7 mmol/L (-2 to +3); HCO3 26.8 mmol/L (22.0-26.0)
[2018-04-24 10:55] LABS: PCO2 69.4 mmHg (35.0-45.0); PO2 149.2 mmHg (75.0-100.0); pH 7.205 (7.340-7.450)
[2018-04-24 14:19] LABS: BE -3.6 mmol/L (-2 to +3); HCO3 25.1 mmol/L (22.0-26.0); PO2 95.4 mmHg (75.0-100.0); pH 7.223 (7.340-7.450)
[2018-04-24 14:20] LABS: PCO2 62.3 mmHg (35.0-45.0)
[2018-04-24 14:35] LABS: PROTIME 33.7 Seconds (9.20-11.50)
[2018-04-24 14:38] LABS: INR 3.3
[2018-04-24 20:47] LABS: INR > 18.0
[2018-04-24 20:48] LABS: APTT > 198.4 Seconds (25.0-31.3)
[2018-04-25] VITALS (12 sets, daily range): BP systolic 94–134; BP diastolic 40–76
[2018-04-25 05:06] LABS: BE -6.5 mmol/L (-2 to +3); HCO3 21.3 mmol/L (22.0-26.0)
[2018-04-25 05:08] LABS: PCO2 52.3 mmHg (35.0-45.0); PO2 140.8 mmHg (75.0-100.0); pH 7.227 (7.340-7.450)
[2018-04-25 07:39] LABS: MCH 28.4 pg (26.0-34.0); MCV 88.8 fL (80.0-100.0); MPV 9.2 fl. (7.2-11.1); RBC 3.83 mil/uL (4.20-5.00); RDW-CV 15.7 % (10.5-14.5); WBC 6.9 thou/uL (4.0-11.0)
[2018-04-25 07:44] LABS: HEMOGLOBIN 10.9 gm/dL (12.0-15.0)
[2018-04-25 07:50] LABS: ALBUMIN 2.4 g/dL (3.4-5.0); CREATININE 1.3 mg/dL (0.6-1.3); MAGNESIUM 1.9 mg/dL (1.8-2.4); TOTAL BILIRUBIN 0.4 mg/dL (<0.1-1.0)
[2018-04-25 07:55] LABS: INR 3.9; PROTIME 39.3 Seconds (9.20-11.50)
[2018-04-25 12:01] LABS: BE -0.5 mmol/L (-2 to +3); HCO3 26.7 mmol/L (22.0-26.0); PO2 93.9 mmHg (75.0-100.0)
[2018-04-25 12:02] LABS: pH 7.296 (7.340-7.450)
[2018-04-26 00:14] VITALS: BP 98/31
[2018-04-26 04:00] VITALS: BP 96/53
[2018-04-26 04:59] LABS: HEMATOCRIT 33.6 % (37.0-47.0); HEMOGLOBIN 10.9 gm/dL (12.0-15.0); MCH 28.6 pg (26.0-34.0); MCHC 32.4 g/dL (28.0-37.0); MCV 88.3 fL (80.0-100.0); MPV 9.9 fl. (7.2-11.1); RBC 3.8 mil/uL (4.20-5.00); RDW-CV 15.3 % (10.5-14.5); WBC 6.9 thou/uL (4.0-11.0)
[2018-04-26 05:30] LABS: INR 3.2; PROTIME 32.1 Seconds (9.20-11.50)
[2018-04-26 05:32] LABS: CALCIUM 8.6 mg/dL (8.5-10.1); CREATININE 1.2 mg/dL (0.6-1.3); POTASSIUM 4.9 mmol/L (3.5-5.1)
[2018-04-26 12:00] VITALS: BP 141/69
[2018-04-26 16:00] VITALS: BP 116/56
[2018-04-26 22:00] VITALS: BP 106/49
[2018-04-26 23:59] VITALS: BP 144/41
[2018-04-27 04:25] VITALS: BP 132/39
[2018-04-27 05:18] LABS: HEMATOCRIT 32.8 % (37.0-47.0); HEMOGLOBIN 10.7 gm/dL (12.0-15.0); MCH 28.9 pg (26.0-34.0); MCHC 32.7 g/dL (28.0-37.0); MCV 88.2 fL (80.0-100.0); MPV 9.7 fl. (7.2-11.1); RBC 3.72 mil/uL (4.20-5.00); RDW-CV 14.8 % (10.5-14.5); WBC 5.1 thou/uL (4.0-11.0)
[2018-04-27 05:29] LABS: CALCIUM 8.4 mg/dL (8.5-10.1); CREATININE 0.9 mg/dL (0.6-1.3); POTASSIUM 4.8 mmol/L (3.5-5.1)
[2018-04-27 05:42] LABS: INR 1.9; PROTIME 19.1 Seconds (9.20-11.50)
[2018-04-27 08:15] VITALS: BP 123/52
[2018-04-27 11:58] VITALS: BP 129/69
[2018-04-27 17:06] VITALS: BP 150/83
[2018-04-27 20:00] VITALS: BP 146/80
[2018-04-28] VITALS: BP 126/63
[2018-04-28 04:00] VITALS: BP 130/51
[2018-04-28 05:12] LABS: INR 1.4; PROTIME 14.7 Seconds (9.20-11.50)
[2018-04-28 08:10] VITALS: BP 113/62
[2018-04-28 12:00] VITALS: BP 144/68
[2018-04-28 16:00] VITALS: BP 125/73
[2018-04-28 20:00] VITALS: BP 124/71
[2018-04-29] VITALS: BP 106/45
[2018-04-29 04:00] VITALS: BP 116/41
[2018-04-29 05:01] LABS: INR 1.5
[2018-04-29 08:30] VITALS: BP 117/65
[2018-04-29 09:54] LABS: BE 1.5 mmol/L (-2 to +3); HCO3 27.1 mmol/L (22.0-26.0); PCO2 46.7 mmHg (35.0-45.0); PO2 107.2 mmHg (75.0-100.0); pH 7.381 (7.340-7.450)
[2018-04-29 12:00] VITALS: BP 122/71; BP 146/43
[2018-04-29 16:00] VITALS: BP 102/81
[2018-04-30] VITALS (9 sets, daily range): BP systolic 112–133; BP diastolic 45–83
[2018-04-30 05:15] LABS: INR 1.6; PROTIME 16.3 Seconds (9.20-11.50)
[2018-04-30] MEDS ORDERED: PREDNISONE 20 M20 MG PO ×2 (15:36)
[2018-04-30] MEDS ORDERED: NYAMYC15 GM TOP ×2 (15:36)
[2018-04-30] MEDS ORDERED: NEXIUM40 MG PO ×2 (15:36)
[2018-04-30] MEDS ORDERED: AUGMENTIN 875-1 EACH PO ×2 (15:36)
== END 2018-04-30 17:53 | disposition home health service (06) | DRG 871 ==
LOC: M.ERS 20:36 → M.TBA-ER 23:51 → M.ICU 23:51 → M.2W 04-24 01:17 → M.ICU 04-24 07:28 → M.3W 04-25 15:34
PROVIDERS: Family Medicine; Internal Medicine; Internal Medicine Pulmonary Disease; Nurse Practitioner Family; ADMIT Internal Medicine
PROC: 30233K1 Transfusion of Nonautologous Frozen Plasma into Peripheral Vein, Percutaneous Approach (ICD-10-PCS; principal; 2018-04-24)
PROC: 5A09457 Assistance with Respiratory Ventilation, 24-96 Consecutive Hours, Continuous Positive Airway Pressure (ICD-10-PCS; principal; 2018-04-24)
PROC: 30233L1 Transfusion of Nonautologous Fresh Plasma into Peripheral Vein, Percutaneous Approach (ICD-10-PCS; principal; 2018-04-24)
PROC: 5A09357 Assistance with Respiratory Ventilation, Less than 24 Consecutive Hours, Continuous Positive Airway Pressure (ICD-10-PCS; 2018-04-25)
PROC: 5A09357 Assistance with Respiratory Ventilation, Less than 24 Consecutive Hours, Continuous Positive Airway Pressure (ICD-10-PCS; 2018-04-28)
DX: A41.9 Sepsis, unspecified organism (principal); G92 Toxic encephalopathy; J96.02 Acute respiratory failure with hypercapnia; J96.01 Acute respiratory failure with hypoxia; N17.0 Acute kidney failure with tubular necrosis; Z68.44 Body mass index [BMI] 60.0-69.9, adult; E87.1 Hypo-osmolality and hyponatremia; N12 Tubulo-interstitial nephritis, not specified as acute or chronic; E66.2 Morbid (severe) obesity with alveolar hypoventilation; E87.2 Acidosis; D68.32 Hemorrhagic disorder due to extrinsic circulating anticoagulants; J44.1 Chronic obstructive pulmonary disease with (acute) exacerbation; B96.20 Unspecified Escherichia coli [E. coli] as the cause of diseases classified elsewhere; F32.9 Major depressive disorder, single episode, unspecified; E66.9 Obesity, unspecified; E11.9 Type 2 diabetes mellitus without complications; F41.1 Generalized anxiety disorder; Z96.653 Presence of artificial knee joint, bilateral; E03.9 Hypothyroidism, unspecified; T45.515A Adverse effect of anticoagulants, initial encounter; Y92.89 Other specified places as the place of occurrence of the external cause; Z86.14 Personal history of Methicillin resistant Staphylococcus aureus infection; Z90.710 Acquired absence of both cervix and uterus; Z79.01 Long term (current) use of anticoagulants; Z79.84 Long term (current) use of oral hypoglycemic drugs; Z86.711 Personal history of pulmonary embolism; Z79.899 Other long term (current) drug therapy; Z88.0 Allergy status to penicillin; Z88.8 Allergy status to other drugs, medicaments and biological substances; Z80.8 Family history of malignant neoplasm of other organs or systems; Z83.3 Family history of diabetes mellitus

== ENCOUNTER → 2018-05-15 | Outpatient (CLI) | payer MEDICARE, OTHER ==
[~2018-05-15] MED LIST changes: +AUGMENTIN 875-1 EACH PO; +NEXIUM40 MG PO; +NYAMYC15 GM TOP; +PREDNISONE 20 M20 MG PO
== END ==
LOC: M.CT 13:16
DX: K76.0 Fatty (change of) liver, not elsewhere classified (principal); N12 Tubulo-interstitial nephritis, not specified as acute or chronic; K27.3 Acute peptic ulcer, site unspecified, without hemorrhage or perforation; N39.0 Urinary tract infection, site not specified; K29.70 Gastritis, unspecified, without bleeding; Z90.710 Acquired absence of both cervix and uterus

== ENCOUNTER 2018-05-28 11:48 | Inpatient (IN) | payer MEDICARE, OTHER ==
[~2018-05-28] VITALS: Ht 165.1 cm; Wt 174.6 kg
--- NOTE | ~2018-05-28 | CON ---
[address] [address] CONSULTATION Name: MARCOFEDERICOJustinARMANDOJANAE DELAROSA Room: [address] IN M.R.#: [id number] Admission: 05/28/18 Attend Phys: Rhoda Irby MD Discharge: Date of : 54 Report #: [id number] THIS REPORT FOR: //name// CC: CHRISTIANO physician/PCP Rhoda Irby DATE OF SERVICE: 05/31/2018 REASON FOR CONSULTATION: Chest pain, abnormal EKG, possible tachycardia. HISTORY OF PRESENT ILLNESS: The patient is a morbidly obese 67-year-old female who is admitted for chest pain and apparently an abnormal ECG at a doctor's office, he is at [facility]. Overnight, she was evaluated with serial cardiac troponin levels and they have all been normal. There is concern she had an atrial arrhythmia, but in fact she has a fairly significant resting tremor and all the telemetry strips reviewed by myself on the other second lead shows sinus rhythm. Historically, the patient does not complain of palpitations. She is quite anxious, though. She has chronic shortness of breath with activity. She is morbidly obese at 181 kilograms, is too heavy for our scanning table. Apparently, she had been seen by Dr. White and arrangements have been made for her to be scanned at [place] [facility] with a heavier duty table. She has no documented history of heart disease, but numerous cardiovascular risk factors. This includes morbid obesity, diabetes, hypertension, and hyperlipidemia. She also has degenerative joint disease, has peptic ulcer disease, sciatica, thrombosis. ALLERGIES: SHE HAS ALLERGIES TO METOCLOPRAMIDE, PENICILLIN. HOME MEDICATIONS: Include Synthroid, metformin, warfarin 10 mg daily, insulin Jardiance 10 mg daily, glipizide 5 mg p.o. b.i.d., Myrbetriq 50 mg daily, Tylenol No. 3. and alprazolam. REVIEW OF SYSTEMS: GENERAL: No fevers or chills. PULMONARY: No wheezing. MUSCULOSKELETAL: Positive chronic tremor, bilateral upper extremities. NEUROLOGIC: No headaches or seizures. SKIN: No rashes. CARDIOVASCULAR: No orthopnea, no PND. Positive dyspnea [place] [address] CONSULTATION Name: ARMANDO MICHAEL Room: [address] IN [facility]#: [id number] Admission: 05/28/18 Attend Phys: Rhoda Irby MD Discharge: Date of : 54 Report #: [id number] chest pain. ENDOCRINE: Positive diabetes, positive thyroid disease. PHYSICAL EXAMINATION: VITAL SIGNS: Blood pressure is 140/89, pulse 67, temperature is 36.4. GENERAL: Pleasant middle-aged woman. She is sitting up in a chair. She is conversant. She is in no apparent distress. HEENT: Eyes: EOMs intact. No facial asymmetry. NECK: Supple. No jugular venous distention. Upstrokes are normal. CARDIOVASCULAR: Regular. I cannot hear a murmur. Otherwise, heart tones are somewhat distant. LUNGS: Clear to auscultation. EXTREMITIES: There is mild nonpitting edema in lower extremities. NEUROLOGIC: There are no focal deficits. DIAGNOSTIC STUDIES: Electrocardiogram demonstrates artifact, but a sinus rhythm. There is flattening of her ST segment changes. LABORATORY DATA: Her hemoglobin is 12.2, white blood cell count 7.9, platelet count is 166,000. INR is 1.1. Chest x-ray shows mild cardiomegaly with slight vascular congestion without findings of acute infiltrate or effusion. IMPRESSION: 1. Chest pain. She was ruled out for a myocardial infarction and I would continue with outpatient plans for pharmacologic nuclear stress test at [facility]. Her symptoms seem pleuritic. 2. Hypertension, stable. 3. Diabetes mellitus. 4. Abnormal EKG. Based on her resting tremor, serial telemetry evaluations by myself indicates she is in the sinus rhythm and this is artifact from tremor. By: 1159 [id number] Barber MD, FACC /nt
[~2018-05-28 11:48] MED LIST changes: +GLUCOPHAGE XR750 MG PO; -LEVOTHYROXINE 0.1 MG PO; -METFORMIN HCL500 MG PO; +SYNTHROID100 MC1 PO
[2018-05-28 11:49] VITALS: BP 156/73
[2018-05-28 12:21] LABS: HEMATOCRIT 40.3 % (37.0-47.0); HEMOGLOBIN 13.1 gm/dL (12.0-15.0); MCH 28.2 pg (26.0-34.0); MCHC 32.5 g/dL (28.0-37.0); MCV 86.7 fL (80.0-100.0); MPV 9.1 fl. (7.2-11.1); NUCLEATED RBCS 0 /100WBC; PLATELET COUNT* 182 thou/uL (150-400); RBC 4.65 mil/uL (4.20-5.00); WBC 13.9 thou/uL (4.0-11.0)
[2018-05-28 12:26] LABS: ANION GAP 7 mmol/L (7-16); BUN 17 mg/dL (7-18); CHLORIDE 99 mmol/L (98-107); CO2 30 mmol/L (21-32); CREATININE 1.1 mg/dL (0.6-1.3); GLUCOSE 180 mg/dL (70-99); SODIUM 136 mmol/L (136-145)
[2018-05-28 12:30] LABS: APTT 28.6 Seconds (25.0-31.3); INR 1.2; PROTIME 12.3 Seconds (9.20-11.50)
[2018-05-28 12:41] LABS: ALBUMIN 3.1 g/dL (3.4-5.0); ALKALINE PHOSPHATASE 108 U/L (46-116); LIPASE 126 U/L (73-393); SGOT 16 U/L (15-37); SGPT 25 U/L (30-65); TOTAL BILIRUBIN 0.6 mg/dL (<0.1-1.0); TOTAL PROTEIN 6.9 g/dL (6.4-8.2); TROPONIN-I LEVEL <0.06 ng/mL (<0.06)
[2018-05-28 12:52] LABS: ABSOLUTE BASOPHILS 0.1 thou/uL (0.0-0.2); ABSOLUTE LYMPHOCYTES 1.1 thou/uL (0.8-5.3); ABSOLUTE MONOCYTES 0.8 thou/uL (0.0-1.2); ABSOLUTE NEUTROPHILS 11.8 thou/uL (1.6-8.1)
[2018-05-28 12:53] LABS: PLATELET ESTIMATE ADEQUATE
[2018-05-28 12:54] LABS: MICROCYTES 2+
[2018-05-28 12:58] LABS: NT-PRO BRAIN NAT PEPTIDE 52 pg/mL (<300)
[2018-05-28 14:16] LABS: INFLUENZA A ANTIGEN None Detected (None Detect); INFLUENZA B ANTIGEN None Detected (None Detect)
--- NOTE | 2018-05-28 14:21 | NUR ---
PT GIVEN PERMISSION FOR WENDY GONZALEZ TO RECEIVE PATIENT CARE INFORMATION.
[2018-05-28 15:03] LABS: HCO3 21.8 mmol/L (22.0-26.0); PCO2 38.3 mmHg (35.0-45.0); PO2 92.9 mmHg (75.0-100.0); pH 7.373 (7.340-7.450)
[2018-05-28 17:54] VITALS: BP 123/50
[2018-05-28 18:00] VITALS: BP 120/88
--- NOTE | 2018-05-28 18:39 | NUR ---
RECEIVED REPORT FROM HITESH IN ED AND ASSUMED CARE OF PT @ 1800.PT IS A/O X4,VSS,TRACING SR ON THE MONITOR.PT REMAINS ON 2L O2 NC.ASSESSMENT CHARTED.IV PATENT AND SALINE LOCKED.PT IS CALM AND COOPERATIVE WITH C/O PAIN IN CHEST.PT LEFT SITTING AT EDGE OF BED EATING.CALL LIGHT AND FALL PRECAUTION IN PLACE.WILL CONTINUE TO MONITOR FOR DURATION OF SHIFT.
--- NOTE | 2018-05-28 18:49 | EKG ---
[place] [address] ELECTROCARDIOGRAM REPORT Name: ARMANDO MICHAEL Room: [address] ADM IN [facility].#: [id number] Admission: 05/28/18 Attend Phys: Rhoda Irby MD Discharge: Date of : 54 Report #: [id number] THIS REPORT FOR: //name// [facility] ED Test Date: 2018-05-28 Test Time: 11:52:09 Pat Name: ARMANDO MICHAEL Department: Room: [facility] Gender: F Correctional Security Officer: RUBY : 1950 Requested By: Vidhya Lindsey Order Number: [id number] MD: Rasheed White Measurements Intervals [place] Rate: 103 P: [place]: QRS: 21 QRSD: 87 T: QT: 379 QTc: 496 Interpretive Statements Sinus rhythm Low voltage, precordial leads Borderline abnrm T, anterolateral leads Borderline prolonged QT interval Compared to ECG 12/08/2017 11:35:38 no significant changes noted Electronically Signed On 05-28-2018 18:49:44 CARDIAC CATH LAB MANAGER by Rasheed White [email or web address] <ELECTRONICALLY SIGNED> By: Rasheed White MD, FACC 05/28/18 1849 1152 1152 Rasheed White MD, [facility] /EPI
[2018-05-28 20:06] VITALS: BP 104/43
[2018-05-28 21:24] LABS: URINE BILIRUBIN NEGATIVE (Negative); URINE BLOOD 1+ (Negative); URINE CLARITY CLEAR; URINE COLOR YELLOW; URINE GLUCOSE-RANDOM 3+ (Negative); URINE KETONES NEGATIVE (Negative); URINE LEUKOCYTES-REFLEX NEGATIVE (Negative); URINE NITRITE-REFLEX NEGATIVE (Negative); URINE PROTEIN NEGATIVE (Negative); URINE UROBILINOGEN 0.2 E.U./dl (0.2-1.0)
[2018-05-28 21:32] LABS: HYALINE CASTS 0-3 Few /LPF (None Seen); MUCUS None Seen strn/LPF (None Seen); SQUAMOUS >10 Many /LPF (0-3)
[2018-05-28 21:33] LABS: URINE RBC 0-2 Rare /HPF (0-2); URINE WBC-REFLEX 6-15 Few /HPF (0-5)
[2018-05-28 21:34] LABS: BACTERIA-REFLEX 1-9 Few /HPF (None Seen); CRYSTALS None Seen /LPF (None Seen)
[2018-05-29] VITALS: BP 127/61
[2018-05-29 02:00] LABS: ABSOLUTE BASOPHILS 0.1 thou/uL (0.0-0.2); ABSOLUTE EOSINOPHILS 0.1 thou/uL (0.0-0.7); ABSOLUTE LYMPHOCYTES 1.6 thou/uL (0.8-5.3); ABSOLUTE MONOCYTES 0.7 thou/uL (0.0-1.2); ABSOLUTE NEUTROPHILS 5.5 thou/uL (1.6-8.1); BASOPHILS 1.1 %; EOSINOPHILS 0.6 %; HEMATOCRIT 37.7 % (37.0-47.0); HEMOGLOBIN 12.3 gm/dL (12.0-15.0); MCH 28.4 pg (26.0-34.0); MCHC 32.6 g/dL (28.0-37.0); MCV 87.2 fL (80.0-100.0); MONOCYTES 8.7 %; MPV 9.4 fl. (7.2-11.1); NUCLEATED RBCS 0 /100WBC; PLATELET COUNT* 166 thou/uL (150-400); POLYS 69.6 %; RBC 4.33 mil/uL (4.20-5.00); RDW-CV 14.7 % (10.5-14.5); WBC 7.9 thou/uL (4.0-11.0)
[2018-05-29 02:30] LABS: ANION GAP 9 mmol/L (7-16); BUN 22 mg/dL (7-18); CALCIUM 8.9 mg/dL (8.5-10.1); CHLORIDE 103 mmol/L (98-107); CHOLESTEROL 157 mg/dL (<200); CO2 27 mmol/L (21-32); GLUCOSE 104 mg/dL (70-99); HDL CHOLESTEROL 68 mg/dL (>40); LDL CHOLESTEROL 72 mg/dL (<100); SODIUM 139 mmol/L (136-145); TC:HDL 2.3 Ratio (Not establshd); TRIGLYCERIDE 86 mg/dL (<150); VLDL 17 mg/dL (<40)
[2018-05-29 02:31] LABS: POTASSIUM 3.8 mmol/L (3.5-5.1); SERUM ASSESSMENT CLEAR
[2018-05-29 04:00] VITALS: BP 134/62
--- NOTE | 2018-05-29 04:48 | NUR ---
RECEIVED REPORT AND ASSUMED CARE AT 1900. VSS. CARDIAC MONITORING IN PLACE. PT DENIES ANY COMPLAINTS OF PAIN. ASSESSMENT COMPLETED CHARTED. PT UP WITH SBA, 2L NC. MEDICATION ADMIN PER EMAR. DISCUSSED PLAN OF CARE, VERBALIZED UNDERSTANDING. NPO AFTER MIDNIGHT. BED LOCKED IN LOWEST POSITION. CALL LIGHT WITHIN REACH. HOURLY ROUNDING COMPLETED AND ALL NEEDS MET. WILL CONTINUE TO MONITOR
[2018-05-29 08:00] VITALS: BP 122/59
--- NOTE | 2018-05-29 09:21 | NUR ---
Pt out of room for CXR, will f/u later
[2018-05-29 12:17] VITALS: BP 118/65
--- NOTE | 2018-05-29 14:08 | NUR ---
ASSUMED PT CARE AT 0730 REPORT RECEIVED FROM NURSE. PT IS AOX4 . VSS. SR ON THE ENGINEERING ADMINISTRATOR. NO COMPLAINT. NPO FOR POSSIBLE STRESS TEST TODAY. MEDICATIONS GIVEN ORDERED. IV FLUID INFUSING AT 100 PER HOUR. ON O2 2 LNC. SATURATION IS ABOVE 95%. SOA WITH EXERTION. PT OUT OF BED TO CHAIR. STRESS TEST DEPARTMEMT CALLED AND SAID THEY CANNOT PERFORM STRESS TEST ON PT BECAUSE THE EQUIPEMENT IS TOO NARROW FOR PT WEIGHT. PT WEIGH 399 LBS. NURSE EXPLAINS THE SITUATION TO PT . PT STATES UNDERSTANDING. LASIX ORDERED AND GIVEN ORDERED. PT HAS BEEN URINATING FREQUENTLY. NO INSULN NEEDED PER BLOOD SUGAR AND SLIDING SCALE. WILL CONTINUE TO MONITOR.
--- NOTE | 2018-05-29 14:25 | NUR ---
IV FLUID DISCONTINUED PER DR FLORES
--- NOTE | 2018-05-29 15:41 | NUR ---
Pt is A&O. Resides at home alone. Independent with ADLs. Pt has a walker, wc and cane at home that she can use for mobility. Pt also has a neb and cpap through [facility] [place]. Hx of [facility]. Hx of skilled at [place] and [facility]. Pt's goal is to return home at ma. Following.
[2018-05-29 15:51] VITALS: BP 121/64
--- NOTE | 2018-05-29 16:35 | EKG ---
[place] [address] ELECTROCARDIOGRAM REPORT Name: ARMANDO MICHAEL Room: [address] ADM IN .R.#: [id number] Admission: 05/28/18 Attend Phys: Rhoda Irby MD Discharge: Date of : 54 Report #: [id number] THIS REPORT FOR: //name// [facility] Test Date: 2018-05-28 Test Time: 20:35:27 Pat Name: ARMANDO MICHAEL Department: Room: [address] Gender: F Vp Of Global Marketing: [facility] : 1950 Requested By: Rhoda Irby Order Number: [id number] Reading MD: David Albert Measurements Intervals [place] Rate: 91 P: 53 UT: 171 QRS: 29 QRSD: 92 T: -49 QT: 453 QTc: 558 Interpretive Statements Sinus rhythm Probable left atrial enlargement Low voltage, precordial leads Abnormal R-wave progression, early transition Borderline repolarization abnormality Prolonged QT interval Compared to ECG 05/28/2018 11:52:09 No significant changes Electronically Signed On 05-29-2018 16:34:58 FURNACE PUNCHER by David Albert [email or web address] <ELECTRONICALLY SIGNED> By: David Albert MD, [facility] 05/29/18 1634 34 34 David Albert MD, [facility] /EPI
--- NOTE | 2018-05-29 16:40 | EKG ---
[place] [address] ELECTROCARDIOGRAM REPORT Name: ARMANDO MICHAEL Room: [address] ADM IN .R.#: [id number] Admission: 05/28/18 Attend Phys: Rhoda Irby MD Discharge: Date of : 54 Report #: [id number] THIS REPORT FOR: //name// [facility] Test Date: 2018-05-29 Test Time: 08:20:36 Pat Name: ARMANDO MICHAEL Department: Room: [address] Gender: F Child Care Group Leader: : 1950 Requested By: Rhoda Irby Order Number: [id number] Reading MD: David Albert Measurements Intervals [place] Rate: 67 P: 51 [place]: 164 QRS: 20 QRSD: 98 T: 15 QT: 440 QTc: 465 Interpretive Statements Sinus rhythm Abnormal R-wave progression, early transition Borderline T abnormalities, anterior leads Compared to ECG 05/28/2018 11:52:09 T-wave abnormality now present Electronically Signed On 05-29-2018 16:40:30 BUILDING INSPECTOR by David Albert [email or web address] <ELECTRONICALLY SIGNED> By: David Albert MD, FACC 05/29/18 1640 9 9 David Albert MD, FAC /EPI
[2018-05-29 20:00] VITALS: BP 118/77
[2018-05-29 21:13] LABS: GLYCOHEMOGLOBIN (HGB A1C) 6.8 % (4.8-5.6)
[2018-05-30] VITALS: BP 113/60
[2018-05-30 04:00] VITALS: BP 95/52
--- NOTE | 2018-05-30 04:57 | NUR ---
ASSUMED PT CARE AT 1930. NURSING ASSESSMENT COMPLETED AT START OF SHIFT. PT VOICED NO CONCERNS THIS SHIFT, DENIES PAIN. GARDEN LABOURER IN PLACE, TRACING SINUS RHYTHM. HOURLY ROUNDING COMPLETED. PT UP TO BATHROOM WITH STAND BY ASSIST. CALL LIGHT WITHIN REACH.
[2018-05-30 08:00] VITALS: BP 110/57
[2018-05-30 08:53] LABS: CALCIUM 8.8 mg/dL (8.5-10.1); CREATININE 0.9 mg/dL (0.6-1.3); MAGNESIUM 1.6 mg/dL (1.8-2.4); POTASSIUM 3.7 mmol/L (3.5-5.1)
[2018-05-30 09:34] LABS: INR 1.1; PROTIME 11.1 Seconds (9.20-11.50)
--- NOTE | 2018-05-30 09:57 | NUR ---
CM spoke with Dr White, he is Pt's senior tax manager and will have his office arrange an outpt stress test at [place] for Pt. Updated nurse and Pt
[2018-05-30 12:00] VITALS: BP 100/55
[2018-05-30 16:00] VITALS: BP 93/56
[2018-05-30 20:00] VITALS: BP 118/77
[2018-05-30 22:24] LABS: URINE BILIRUBIN NEGATIVE (Negative); URINE BLOOD NEGATIVE (Negative); URINE CLARITY CLEAR; URINE COLOR DARK YELLOW; URINE GLUCOSE-RANDOM 1+ (Negative); URINE KETONES NEGATIVE (Negative); URINE LEUKOCYTES NEGATIVE (Negative); URINE NITRITE NEGATIVE (Negative); URINE PROTEIN NEGATIVE (Negative); URINE SPECIFIC GRAVITY >= 1.030 (1.005-1.030); URINE UROBILINOGEN 0.2 E.U./dl (0.2-1.0)
[2018-05-31 00:15] VITALS: BP 129/63
[2018-05-31 04:00] VITALS: BP 109/58
[2018-05-31 04:58] LABS: INR 1.1; PROTIME 11.7 Seconds (9.20-11.50)
--- NOTE | 2018-05-31 05:22 | NUR ---
ASSUMED PT CARE AT 1930. NURSING ASSESSMENT COMPLETED AT START OF SHIFT. PT VOICED NO CONCERNS AT START OF SHIFT. AT 2009, PT C/O DULL LEFT SIDED CHEST PAIN, NON-RADIATING. PT RATED PAIN 5/10. SL NITROGLYCERIN ADMINISTERED X2, SEE EMAR FOR DOCUMENTATION. PT VOICED RELIEF OF PAIN AFTER SECOND DOSE. POWER BALLAST MACHINE OPERATOR IN PLACE, PT TRACING SINUS RHYTHM THIS SHIFT. HOURLY ROUNDING COMPLETED, CALL LIGHT WITHIN REACH.
[2018-05-31 05:37] LABS: CALCIUM 8.8 mg/dL (8.5-10.1); CREATININE 0.9 mg/dL (0.6-1.3); MAGNESIUM 1.7 mg/dL (1.8-2.4)
[2018-05-31 08:00] VITALS: BP 115/55
[2018-05-31 11:52] VITALS: BP 140/89
[2018-05-31 16:00] VITALS: BP 163/58
--- NOTE | 2018-05-31 16:11 | NUR ---
ASSUMED PT CARE. REPORT RECEIVED FROM NURSE PT IS AOX4 AFIB/AFLUTTER ON AND OFF ON RETRIEVAL SPECIALIST. SEE CARDIAC SCRIPT IN CHART. HR MAINTAINED IN THE 70S. AT AROUND 1200, PT CONVERTED BACK TO SINUS RYTHM HR IN THE 60S. PT DOES NOT REPORT ANY CHEST PAIN OR DISCOMFORT IN CHEST. DOES NOT FEEL ANY RACING ON THE HEART. BUT NURSE NOTIFIED DR FLORES WHO ORDERED CARDIAC CONSULT. CARDIAC CONSULT CALLED TO DR HERNANDEZ.AWAITING CALL BACK. PT IS TO HAVE STRESS TEST OUTPATIENT AT [place] AFTER DC. FOLLOW UP APPOIMTMETN WITH DR STAFFORD WHO IS PT 'S DR WELL. PT AWARE OF DC PLANS AND NEED TO PLAN STRESS TEST WITH DR STAFFORD AT DC. MEDICATIONS GIVEN. DR FITZPATRICK SAW PT THIS AM AND SAYS IT'S NOT AFLUTTER BECAUSE PT HAS TREMORS. SEE CHART DOCUMENTATION. AT 12:43 AM, NURSE NOTICED VAGUE VTACH LIKE EVENT ON RETRIEVAL SPECIALIST BUT PT IS STABLE. NURSE FOUND PT IN ROOM TALKING ON THE PHONE AND HAVING TREMORS USUAL. VSS. SCRIPTS PLACED IN CHART FOR REVIEW. WILL CONTINUE TO MONITOR.
--- NOTE | 2018-05-31 18:38 | NUR ---
PT COMPLAINS OF CHEST PAIN AT 1730 LEVEL 6 . NITRO GIVEN. PT STATES IT IS DOWN TO 2 AT 1830.
[2018-05-31 19:41] VITALS: BP 149/67
[2018-06-01] VITALS (7 sets, daily range): BP systolic 105–137; BP diastolic 46–110
[2018-06-01 05:14] LABS: CALCIUM 8.8 mg/dL (8.5-10.1); CREATININE 0.9 mg/dL (0.6-1.3); INR 1.3; MAGNESIUM 1.7 mg/dL (1.8-2.4); POTASSIUM 3.3 mmol/L (3.5-5.1); PROTIME 13.5 Seconds (9.20-11.50)
--- NOTE | 2018-06-01 05:52 | NUR ---
RECEIVED REPORT AND ASSUMED CARE AT 1900. VSS. CARDIAC MONITORING IN PLACE. PT DENIES COMPLAINTS OF PAIN. ASSESSMENT COMPLETED CHARTED. DISCUSSED PLAN OF CARE WITH PT, VERBALIZED UNDERSTANDING. PT UP AD RADHA, ON 2L NC. BED LOCKED IN LOWEST POSITION, CALL LIGHT WITHIN REACH. PT COMPLIANT WITH CPAP AT [facility]. HOURLY ROUNDING COMPLETED AND ALL NEEDS MET. WILL CONTINUE TO MONITOR
--- NOTE | 2018-06-01 13:49 | EKG ---
[place] [address] ELECTROCARDIOGRAM REPORT Name: ARMANDO MICHAEL Room: [address] ADM IN [facility].#: [id number] Admission: 05/28/18 Attend Phys: Rhoda Irby MD Discharge: Date of : 54 Report #: [id number] THIS REPORT FOR: //name// [facility] Test Date: 2018-05-31 Test Time: 09:48:58 Pat Name: ARMANDO MICHAEL Department: Room: [address] Gender: F Crate Opener: TRUDY : 1950 Requested By: Lorenzo Barber Order Number: [id number] Reading MD: Lorenzo Barber Measurements Intervals [place] Rate: 70 P: 56 ND: 158 QRS: 24 QRSD: 108 T: 48 QT: 426 QTc: 460 Interpretive Statements Sinus rhythm Borderline T abnormalities, anterior leads Compared to ECG 05/29/2018 08:20:36 No significant changes Electronically Signed On 06-01-2018 13:48:50 SERVICE RIG OPERATOR by Lorenzo Barber [email or web address] <ELECTRONICALLY SIGNED> By: Lorenzo Barber MD, FACC 06/01/18 1348 0948 0948 Lorenzo Barber MD, [facility] /EPI
--- NOTE | 2018-06-01 13:51 | EKG ---
[place] [address] ELECTROCARDIOGRAM REPORT Name: ARMANDO MICHAEL Room: [address] ADM IN M.R.#: [id number] Admission: 05/28/18 Attend Phys: Rhoda Irby MD Discharge: Date of : 54 Report #: [id number] THIS REPORT FOR: //name// [facility] Test Date: 2018-06-01 Test Time: 04:22:14 Pat Name: ARMANDO MICHAEL Department: Room: [address] Gender: F Residential Sales: LIANA : 1950 Requested By: Lorenzo Barber Order Number: [id number] Reading MD: Lorenzo Barber Measurements Intervals [place] Rate: 59 P: 0 DC: 73 QRS: 41 QRSD: 110 T: 32 QT: 444 QTc: 440 Interpretive Statements Sinus rhythm Short DC interval Low voltage, precordial leads RSR' in V1 or V2, probably normal variant Borderline T abnormalities, anterior leads Baseline wander in lead(s) II,III,aVF Compared to ECG 05/29/2018 08:20:36 Short DC interval now present Low QRS voltage now present RSR' in V1 or V2 now present T-wave abnormality still present Electronically Signed On 06-01-2018 13:51:11 BUSINESS SERVICES INTERN by Lorenzo Barber [email or web address] <ELECTRONICALLY SIGNED> By: Lorenzo Barber MD, [facility] 06/01/18 1351 0422 0422 Lorenzo Barber MD, [facility] /EPI
--- NOTE | 2018-06-01 17:16 | NUR ---
CHARMAINE RESTING IN BED. VITAL SIGNS STABLE. PATIENT HEART RATE HAS DECREASED AND CONVERTED INTO SINUS RHYTHM WITH RATES IN THE 80-90. ROOM AIR. UP AD RADHA. PATIENT IS ANTICIPATING DISCHARGE TOMORROW. HOURLKY ROYUNDING COMPLETED FOR PATIENT SAFETY.
--- NOTE | 2018-06-01 17:19 | NUR ---
PATIENT RESTING IN BED. VITAL SIGNS STABLE AND PATIENT IN NOAPPARENT SIGNS OF DISTRESS. HOULRY ROUNDING COMPLETED FOR PATIWENT SAFETY.
[2018-06-02 04:00] VITALS: BP 125/76
[2018-06-02 04:38] LABS: INR 1.4; PROTIME 14.8 Seconds (9.20-11.50)
--- NOTE | 2018-06-02 04:52 | NUR ---
REPORT RECEIVED FROM OFF GOING SHIFT. PT AAOX4 RESP REG AND UNLABORED SKIN W/D. PT DENIES CHEST PAIN AT THIS TIME, PT STATED SHE WANTED TO HAVE A GOOD NIGHTS REST SO SHE CAN BE DCD IN AM. AMPHIBIAN CREWMEMBER INTACT WITH ALARMS SET. VSS AND NO ACUTE CHANGES DURING SHIFT WILL CONITNUE TO MONITOR
[2018-06-02 07:31] VITALS: BP 139/38
[2018-06-02] MEDS ORDERED: ATORVASTATIN CA40 MG PO (09:18)
[2018-06-02] MEDS ORDERED: LASIX 20 MG TAB20 MG PO (09:18)
[2018-06-02] MEDS ORDERED: ASPIR 8181 MG PO (09:18)
[2018-06-02] MEDS ORDERED: KLOR-CON 1010 MEQ PO (09:19)
[2018-06-02 11:30] VITALS: BP 125/78
--- NOTE | 2018-06-02 17:44 | NUR ---
ORDER RECEIVED TO DISCHARGE CHARMAINE HOME TO SELF CARE. MED REC, MEDICATION EDUCAITON, STROKE EDUCATION , AND NEED FOR FOLLOW UP APPOINTMNETS COVERED WITH PATIENT AND STATED UNDERSTOOD BY CHARMAINE. CHARMAINE GIVEN PRESCRIPTIONS AND EDUCATION RELATED TO MEDICATION ADMINISTRATION. IV AND TELEMETRY REMOVED. PATIENT TRANSPORTED VIA WHEELCHAIR TO AWAITING CAR WITH FAMILY PRESENT. DISCHARGE TIME OF 14:00.
== END 2018-06-02 14:00 | disposition home or self-care (01) | DRG 871 ==
LOC: M.ERS 11:48 → M.2W 15:29 → M.TBA-ER 15:29 → M.2W 18:03
PROVIDERS: Internal Medicine; Personal Emergency Response Attendant; ADMIT Family Medicine
DX: A41.9 Sepsis, unspecified organism (principal); I50.33 Acute on chronic diastolic (congestive) heart failure; J96.01 Acute respiratory failure with hypoxia; I25.110 Atherosclerotic heart disease of native coronary artery with unstable angina pectoris; J44.1 Chronic obstructive pulmonary disease with (acute) exacerbation; D68.59 Other primary thrombophilia; E66.2 Morbid (severe) obesity with alveolar hypoventilation; Z68.44 Body mass index [BMI] 60.0-69.9, adult; I11.0 Hypertensive heart disease with heart failure; F32.9 Major depressive disorder, single episode, unspecified; F41.9 Anxiety disorder, unspecified; M19.90 Unspecified osteoarthritis, unspecified site; E11.9 Type 2 diabetes mellitus without complications; Z96.653 Presence of artificial knee joint, bilateral; E03.9 Hypothyroidism, unspecified; Z88.0 Allergy status to penicillin; Z88.8 Allergy status to other drugs, medicaments and biological substances; Z83.3 Family history of diabetes mellitus; Z86.711 Personal history of pulmonary embolism; Z87.11 Personal history of peptic ulcer disease; Z79.899 Other long term (current) drug therapy

== ENCOUNTER 2018-06-16 18:44 | Inpatient (IN) | payer MEDICARE, OTHER ==
[~2018-06-16] VITALS: Ht 165.1 cm; Wt 180.5 kg
--- NOTE | ~2018-06-16 | CON ---
[address] [address] CONSULTATION Name: ARMANDO MICHAEL Room: [address] IN .R.#: [id number] Admission: 06/16/18 Attend Phys: Bradford Youngblood MD Discharge: Date of : 54 Report #: [id number] THIS REPORT FOR: //name// CC: Bradford Youngblood [facility] physician/PCP DATE OF SERVICE: 06/18/2018 HISTORY OF PRESENT ILLNESS: This is a pleasant 67-year-old female with past medical history significant for coronary artery disease, COPD, CHF, morbid obesity, obstructive sleep apnea, who is presenting for evaluation of chest pain. The patient reports the pain is located in the mid chest, radiates to the left arm and is associated with movement. She denies any abdominal pain, nausea, vomiting, difficulty swallowing or pain on swallowing. She also denies any diarrhea, hematemesis or hematochezia. The patient reports her weight has been stable over the last few months. The GI service has been consulted because cardiac cause of her pain has been ruled out. PAST MEDICAL HISTORY: As mentioned above, the patient has a known history of morbid obesity, hypertension, hyperlipidemia, diabetes, obstructive sleep apnea. PAST SURGICAL HISTORY: The patient had bilateral knee replacements in 2006, hysterectomy and a left breast biopsy in 2017. FAMILY HISTORY: Per patient's mother was diagnosed with breast cancer and diabetes. SOCIAL HISTORY: The patient denies smoking, alcohol or recreational drug use. REVIEW OF SYSTEMS: A comprehensive 10-point review of systems is negative except for what is mentioned in the HPI. PHYSICAL EXAMINATION: VITAL SIGNS: Temperature 36.7, pulse rate 70, respirations 18, blood pressure 119/72, pulse ox 94% on room air. GENERAL: The patient is alert, awake, oriented x 3. HEENT: Pupils are equal, round, reactive to light and accommodation. Mucous membranes are moist. NECK: There is no congestion. LUNGS: Clear to auscultation bilaterally. CARDIOVASCULAR: Rate and rhythm regular, S1, S2 present. ABDOMEN: Soft. There is no distention, guarding or rigidity. SKIN: Warm and dry. LABORATORY DATA: Hemoglobin 13.1, hematocrit 40.9, platelet count 139, WBC count 6.0. Chemistry: Sodium 142, potassium 3.8, chloride 106, bicarbonate 31, [place] [address] CONSULTATION Name: ARMANDO MICHAEL Room: [address]#: [id number] Admission: 06/16/18 Attend Phys: Bradford Youngblood MD Discharge: Date of : 54 Report #: [id number] BUN 17, creatinine 0.8, total bilirubin 0.2, AST 15, ALT 21, alkaline phosphatase 127, lipase 178. ASSESSMENT AND PLAN: This is a pleasant 67-year-old female with several medical comorbidities as mentioned above, presenting with chest pain radiating to the left arm. The patient was catheterized and was found that there was no significant obstruction in the coronary arteries and therefore GI service has been consulted for evaluation of noncardiac chest pain. The patient does report a history of gastroesophageal reflux disease and peptic ulcer disease in the past and therefore we will plan on an EGD tomorrow and make further recommendations based on results of this test. Please keep the patient n.p.o. past midnight. Thank you for this consult. By: 1750 [id number] Patrick MD /kely
[~2018-06-16 18:44] MED LIST changes: +ATORVASTATIN CA40 MG PO; +LASIX 20 MG TAB20 MG PO
[2018-06-16 18:55] VITALS: BP 130/79
[2018-06-16 19:13] LABS: ABSOLUTE EOSINOPHILS 0.1 thou/uL (0.0-0.7); ABSOLUTE LYMPHOCYTES 2.8 thou/uL (0.8-5.3); ABSOLUTE MONOCYTES 0.7 thou/uL (0.0-1.2); ABSOLUTE NEUTROPHILS 6.4 thou/uL (1.6-8.1); BASOPHILS 0.4 %; EOSINOPHILS 0.7 %; HEMATOCRIT 42.1 % (37.0-47.0); HEMOGLOBIN 13.7 gm/dL (12.0-15.0); MCH 28.1 pg (26.0-34.0); MCHC 32.5 g/dL (28.0-37.0); MCV 86.4 fL (80.0-100.0); MONOCYTES 6.9 %; MPV 9.3 fl. (7.2-11.1); NUCLEATED RBCS 0 /100WBC; PLATELET COUNT* 220 thou/uL (150-400); RBC 4.88 mil/uL (4.20-5.00); RDW-CV 14.3 % (10.5-14.5)
[2018-06-16 19:21] LABS: ANION GAP 8 mmol/L (7-16); BUN 20 mg/dL (7-18); CALCIUM 8.9 mg/dL (8.5-10.1); CHLORIDE 103 mmol/L (98-107); CO2 30 mmol/L (21-32); GLUCOSE 151 mg/dL (70-99); SODIUM 141 mmol/L (136-145)
[2018-06-16 19:24] LABS: APTT 27.3 Seconds (25.0-31.3); INR 1.2; PROTIME 12.1 Seconds (9.20-11.50)
[2018-06-16 19:41] LABS: ALBUMIN 3.2 g/dL (3.4-5.0); ALKALINE PHOSPHATASE 127 U/L (46-116); CK-MB MASS 0.8 ng/mL (<0.5-3.6); LIPASE 178 U/L (73-393); MAGNESIUM 1.8 mg/dL (1.8-2.4); NT-PRO BRAIN NAT PEPTIDE 16 pg/mL (<300); SGOT 15 U/L (15-37); SGPT 21 U/L (30-65); TOTAL BILIRUBIN 0.2 mg/dL (<0.1-1.0); TOTAL PROTEIN 7.2 g/dL (6.4-8.2); TROPONIN-I LEVEL <0.06 ng/mL (<0.06)
[2018-06-16 21:25] VITALS: BP 136/60
[2018-06-16 21:31] VITALS: BP 130/66
[2018-06-17] VITALS (17 sets, daily range): BP systolic 103–150; BP diastolic 50–78
--- NOTE | 2018-06-17 05:55 | NUR ---
PT IS ABLE TO COMMUNICATE HER NEEDS TO STAFF EFFECTIVELY. SHE WAS ADMITTED TO ROOM 207 DURING THIS SHIFT; VSS, A+OX4, UP WITH SBA, FALL RISK, REPORTS SOME PAIN IN NECK AND LEFT ARM. CURRENT PAIN MEDICATION REGIMEN HAS BEEN ADEQUATE FOR CONTROLLING HER PAIN UP TO THIS TIME. SHE HAS BEEN NPO SINCE MIDNIGHT FOR A CARDIOLOGY CONSULT TODAY.
[2018-06-17 08:42] LABS: INR 1.2; PROTIME 12.6 Seconds (9.20-11.50)
--- NOTE | 2018-06-17 09:47 | NUR ---
Nutrition: Pt admitted with chest pain. Consult for OBE, poor appetite. Pt weighs her usual, 394#. BG 151, albumin 3.2. H/o COPD, mood disorders, DM. Currently NPO. Mild risk. RECOMMEND ADVANCING DIET TO HEART HEALTHY WITH CHO CONTROL ONCE PT IS CLINICALLY ABLE.
--- NOTE | 2018-06-17 09:57 | NUR ---
PT OFF UNIT TO [facility].
--- NOTE | 2018-06-17 10:20 | NUR ---
pt reutrin from xry.
--- NOTE | 2018-06-17 11:21 | NUR ---
PT OFF UNIT TO INFUSION LAB FOR IV PLACEMENT THEN TO BANDSAW OPERATOR.
--- NOTE | 2018-06-17 11:53 | EKG ---
[place] [address] ELECTROCARDIOGRAM REPORT Name: MILESJustinARMANDO DELAROSA Room: [address] ADM IN .R.#: [id number] Admission: 06/16/18 Attend Phys: Bradford Youngblood MD Discharge: Date of : 54 Report #: [id number] THIS REPORT FOR: //name// [facility] ED Test Date: 2018-06-16 Test Time: 18:52:56 Pat Name: ARMANDO MICHAEL Department: Room: [facility] Gender: F Upholstered Goods Crafter: : 1950 Requested By: Chris Srinivasan Order Number: [id number] MD: Bob Castillo Measurements Intervals [place] Rate: 82 P: 30 AL: 152 QRS: 43 QRSD: 107 T: -88 QT: 435 QTc: 508 Interpretive Statements Sinus rhythm Low voltage, precordial leads Prolonged QT interval Compared to ECG 06/01/2018 04:22:14 Prolonged QT interval now present Short AL interval no longer present Electronically Signed On 06-17-2018 11:53:17 VENEER JOINTER OFFBEARER by Bob Castillo [email or web address] <ELECTRONICALLY SIGNED> By: Bob Castillo MD, [facility] 06/17/18 1153 185 51 Bob Castillo MD, [facility] /EPI
--- NOTE | 2018-06-17 11:54 | EKG ---
[place] [address] ELECTROCARDIOGRAM REPORT Name: ARMANDO MICHAEL Room: [address] ADM IN .R.#: [id number] Admission: 06/16/18 Attend Phys: Bradford Youngblood MD Discharge: Date of : 54 Report #: [id number] THIS REPORT FOR: //name// [facility] ED Test Date: 2018-06-16 Test Time: 18:57:24 Pat Name: ARMANDO MICHAEL Department: Room: [address] Gender: F Pinmaker: : 1950 Requested By: Bradford Youngblood Order Number: [id number] Hebert MD: Bob Castillo Measurements Intervals [place] Rate: 83 P: 26 PA: 192 QRS: 32 QRSD: 119 T: -74 QT: 392 QTc: 461 Interpretive Statements Sinus rhythm Nonspecific intraventricular conduction delay Low voltage, precordial leads Borderline T abnormalities, diffuse leads Electronically Signed On 06-17-2018 11:53:40 FORENSIC MATERIALS ENGINEER by Bob Castillo [email or web address] <ELECTRONICALLY SIGNED> By: Bob Castillo MD, [facility] 06/17/18 1153 1857 56 Bob Castillo MD, [facility] /EPI
--- NOTE | 2018-06-17 15:20 | NUR ---
Pt is A&O. Known to this CM from previous hospital stay. Pt resides at home alone, normally active and independent. Pt stated that she was dc with HH during last stay, but HH stopped coming because was not "homebound." Pt has a walker, wc, and cane at home that she can use if needed. Pt has a home neb and cpap through [facility]. Pt stated that she did go to her f/u appt with Dr White. Pt had a cath today. Hx of [facility]. Hx of skilled at [place] [facility]. Goal is home at tn. No needs anticipated. Following.
--- NOTE | 2018-06-17 17:41 | CARD ---
[address] [address] CARDIAC CATH REPORT Name: ARMANDO MICHAEL Room: [address] IN ..#: [id number] Admission: 06/16/18 Attend Phys: Bradford Youngblood MD Discharge: Date of : 54 Report #: [id number] THIS REPORT FOR: //name// APPROVED REPORT Study performed: 06/17/2018 10:57:00 Patient Details Patient Status: In-Patient Room #: 207 The patient is a 67 year-old female Event Personnel Rasheed White Marketing Officer, Alisa Long RN Vegetable Washer, Saud Aparicio (R) Monitor, Loreto Beaver RTR Scrub Procedures Performed Left Heart Cath w/or w/o Coronaries Procedure Narrative A Slender Glidesheath sheath was inserted into the right radial artery. Coronary angiography was performed using coronary diagnostic catheters. The right coronary system was accessed and visualized with a Diagnostic 3DRC catheter. The left coronary system was accessed and visualized with a Diagnostic Pilot 4.0 6fr catheter. The left ventricle was accessed and visualized with a Diagnostic Angled Pigtail catheter. Left ventricular/Aortic Valve gradient assessed via catheter pullback. Closure device was deployed with a Fr Vasc-Band XLng 29cm. The patient tolerated the procedure well and there were no complications associated with the procedure. Intraoperative Conscious Sedation Sedation start time: 11:37 Case end Time: 11:57 Fentanyl 50 mcg Versed 4 mg Fluoro Time: 3.9 minutes Dose: DAP 162672 cGycm2 1679 mGy Contrast Type and Amount: Omnipaque 160 ml Coronary Angiography The patient's coronary [place] [address] CARDIAC CATH REPORT Name: ARMANDO MICHAEL Room: [address] IN [facility]#: [id number] Admission: 06/16/18 Attend Phys: rBadford Youngblood MD Discharge: Date of : 54 Report #: [id number] Diagnostic Cath Left Main The left main is long and normal. LAD The left anterior descending coronary artery is normal in its proximal mid and distal portion. Diagonal 1 And intermediate ramus with diagonal distribution is large and branched and normal. Circumflex The circumflex is normal in its proximal mid and distal portion. OM1 A high rising first obtuse marginal branch is normal. OM2 A distal second obtuse marginal branch is normal. Right Coronary The right coronary artery is a large in caliber vessel that is normal in its proximal mid and distal portion. R PDA A moderate size right PDA is normal. RPLV A large in size posterior lateral LV branch is normal. Left Ventriculography The left ventricle is normal in size with normal contractility. The left ventricular ejection fraction is estimated to be 65-70%. Hemodynamics The aortic pressure is 115/69 mmHg with a mean of 87 mmHg. The left ventricular pressure is 130/9 mmHg with a mean of mmHg. The left ventricular end diastolic pressure is 15 mmHg. Conclusion 1. Normal coronary arteries. 2. Normal left ventricular systolic function. 3. Minimally elevated left ventricular end-diastolic pressure. Recommendations 1. Continue current medical management. <ELECTRONICALLY SIGNED> By: Rasheed White MD, FACC 06/17/18 174 40 174Micmaricruz White MD, FACC /INF
--- NOTE | 2018-06-17 18:30 | NUR ---
PT HAD NEGATIVE CATH TODAY. GI CONSULT PLACED FOR TOMORROW. PT UP TO BATHROOM SEVERAL TIMES.
[2018-06-18] VITALS: BP 143/58
[2018-06-18 04:00] VITALS: BP 158/65
[2018-06-18 05:56] LABS: HEMATOCRIT 40.9 % (37.0-47.0); HEMOGLOBIN 13.1 gm/dL (12.0-15.0); MCH 27.9 pg (26.0-34.0); MCV 87.4 fL (80.0-100.0); MPV 9.3 fl. (7.2-11.1); RBC 4.69 mil/uL (4.20-5.00); RDW-CV 14.7 % (10.5-14.5)
[2018-06-18 06:06] LABS: INR 1.3; PROTIME 13.5 Seconds (9.20-11.50)
[2018-06-18 06:19] LABS: CALCIUM 8.5 mg/dL (8.5-10.1); CREATININE 0.8 mg/dL (0.6-1.3); MAGNESIUM 1.9 mg/dL (1.8-2.4); POTASSIUM 3.8 mmol/L (3.5-5.1)
--- NOTE | 2018-06-18 08:09 | NUR ---
Pt A/O x 4. RA/O2 2L NC at HS. VSS. IVF infusing. C/o chest pain x 1, pain med given per order, pain relief achieved. No apparent distress noted. Right wrist incision site soft, no hematoma, with C/D/I transparent dressing. Right radial 2+ pulse, with <3 second capillary refill. RUE warm and dry. Pt educated on RUE and right radial incision site precautions. Pt verbalized understanding of teaching. Bed alarm on. Fall precautions maintained. Call light within reach. Shift change completed with incoming day-shift RN.
[2018-06-18 08:43] VITALS: BP 148/93
--- NOTE | 2018-06-18 08:46 | CON ---
[address] [address] CONSULTATION Name: ARMANDO MICHAEL Room: [address] IN M.R.#: [id number] Admission: 06/16/18 Attend Phys: Bradford Youngblood MD Discharge: Date of : 54 Report #: [id number] THIS REPORT FOR: //name// CC: Bradford Youngblood [facility] physician/PCP INDICATION: Chest pain. HISTORY OF PRESENT ILLNESS: The patient is a 67-year-old white female with history of intermittent chest pain for some time now. A stress test recently showed reversible basal inferior wall defect with preserved LV function. She had recurrent chest discomfort last night and presented to the Emergency Room. She describes the pain as under her breast and radiating to her left arm and back. She has no nausea, vomiting or diaphoresis with the discomfort. She is without other cardiac complaint. She has no prior history of coronary artery disease, although I do not believe she has ever had a cardiac catheterization. PAST MEDICAL HISTORY: Diabetes, hypothyroidism, morbid obesity, obstructive sleep apnea. FAMILY HISTORY: Noncontributory. SOCIAL HISTORY: The patient does not smoke or drink alcohol. ALLERGIES: REGLAN, PENICILLIN. HOME MEDICATIONS: Creon DR 3000 units p.o. as directed, levothyroxine 100 mcg daily, metformin 500 mg 1-1/2 tablets daily, warfarin 10 mg daily, Abilify 5 mg daily, Tradjenta 5 mg daily, Xanax 0.25 mg b.i.d. p.r.n., Jardiance 10 mg daily, gabapentin 600 mg t.i.d., Bentyl 10 mg 2 pills q.i.d., [place] 5/325 q.4 hours p.r.n., Cymbalta 60 mg daily, glipizide 5 mg b.i.d., Myrbetriq 50 mg daily. REVIEW OF SYSTEMS: Otherwise, noncontributory from a cardiac standpoint. PHYSICAL EXAMINATION: VITAL SIGNS: Blood pressure 149/67, pulse 71 and regular. GENERAL: This is a morbidly obese white female in no distress. HEENT: Extraocular muscles intact. Mucous membranes moist. NECK: Reveals a thick neck without obvious jugular venous distention. CHEST: Reveals clear lung medeiros anteriorly. CARDIOVASCULAR: Reveals distant S1 and S2 without gallop or murmur. ABDOMEN: Reveals a protuberant abdomen, soft. EXTREMITIES: Show no edema. SKIN: Warm and dry. Peripheral pulses 2+ and palpable. LABORATORY DATA: EKG shows sinus rhythm without acute ST [place] [address] CONSULTATION Name: ARMANDO MICHAEL Room: [address] IN M.R.#: [id number] Admission: 06/16/18 Attend Phys: Bradford Youngblood MD Discharge: Date of : 54 Report #: [id number] Troponins are less than 0.06 on 3 separate occasions. IMPRESSION AND RECOMMENDATIONS: 1. Chest pain with abnormal stress test suggesting possible basal inferior wall ischemia. We will proceed to cardiac catheterization. Further intervention will be pending the results of that study. 2. Diabetes, per primary physician. 3. Hypertension, adequately controlled on current medications. 4. Morbid obesity. <ELECTRONICALLY SIGNED> By: Rasheed White MD, FACC 06/18/18 0846 1036 [id number] White MD, FACC /nt
[2018-06-18 11:30] VITALS: BP 128/44
[2018-06-18 15:53] VITALS: BP 119/72
--- NOTE | 2018-06-18 17:24 | NUR ---
PT CONSISTENTLY C/O BURNING EPIGASTRIC PAIN THAT IS WORSE AFTER EATING. PT GIVEN PAIN MED ORDERED WITH SOME RELIEF. PT UP TO BATHROOM INDEPENDENTLY. PT ABLE TO MAKE NEEDS KNOWN, CALL LIGHT IN REACH
[2018-06-18 20:00] VITALS: BP 115/84
[2018-06-19] VITALS: BP 124/59
[2018-06-19 04:00] VITALS: BP 101/44
[2018-06-19 04:56] LABS: INR 1.5; PROTIME 15.5 Seconds (9.20-11.50)
--- NOTE | 2018-06-19 05:40 | NUR ---
ASSUMED CARE OF PT AFTER REPORT AT 1930. PT A&OX4. VSS. PHYSICAL ASSESSMENT COMPLETED AND CHARTED. PT ON RA WITH 95% O2 SAT. PT TRACING SR ON TELE. PT UP ADLIB TO RESTROOM. PT C/O OF CHEST, EPIGASTRIC & BACK PAIN-PAIN MEDS GIVEN PER JUL. INSTRUCTED ON NPO POST MIDNIGHT FOR EGD TODAY. COMMUNICATES UNDERSTANDING. PT RESTED WELL ON BED. CALL LIGHT WITHIN REACH. BED IN LOW POSITION.
[2018-06-19 07:30] VITALS: BP 167/59
[2018-06-19 11:17] VITALS: BP 167/59
[2018-06-19 11:45] VITALS: BP 106/50
[2018-06-19] MEDS ORDERED: NEXIUM40 MG PO (12:39)
[2018-06-19] MEDS ORDERED: CARAFATE 11 GM/10 M1 PO (12:39)
[2018-06-19] MEDS ORDERED: AMITRIPTYLINE H25 M2 PO (16:38)
[2018-06-19 20:00] VITALS: BP 119/82
[2018-06-20] VITALS: BP 130/43
[2018-06-20 04:00] VITALS: BP 130/48
[2018-06-20 04:54] LABS: INR 1.6; PROTIME 16.7 Seconds (9.20-11.50)
--- NOTE | 2018-06-20 05:56 | NUR ---
ASSUMED PT CARE @1930. PT AWAKE AND ORIENTED X4. VSS. TRACING SR ON ENDOSCOPY SPECIALTY TECHNICIAN. 02 SATURATION IS 98% IN ROOM AIR. RASHES NOTED IN THE ABDOMINAL FOLDS AND PERINEAL AREA. NYSTATIN POWDER APPLIED PER JUL. HOURLY ROUNDING DONE FOR PT SAFETY. CALL LIGHT WITHIN REACH.
[2018-06-20 07:30] VITALS: BP 137/79
[2018-06-20 11:53] VITALS: BP 149/75
[2018-06-20 14:40] VITALS: BP 149/75
== END 2018-06-20 16:36 | disposition home or self-care (01) | DRG 287 ==
LOC: M.ERS 18:44 → M.2W 20:00 → M.TBA-ER 20:00 → M.2W 21:30
PROVIDERS: Family Medicine; Internal Medicine; ADMIT Internal Medicine
PROC: 4A023N7 Measurement of Cardiac Sampling and Pressure, Left Heart, Percutaneous Approach (ICD-10-PCS; principal; 2018-06-17)
PROC: B2111ZZ Fluoroscopy of Multiple Coronary Arteries using Low Osmolar Contrast (ICD-10-PCS; principal; 2018-06-17)
PROC: B2151ZZ Fluoroscopy of Left Heart using Low Osmolar Contrast (ICD-10-PCS; principal; 2018-06-17)
PROC: 0DJ08ZZ Inspection of Upper Intestinal Tract, Via Natural or Artificial Opening Endoscopic (ICD-10-PCS; 2018-06-19)
DX: R07.89 Other chest pain (principal); D68.59 Other primary thrombophilia; Z68.44 Body mass index [BMI] 60.0-69.9, adult; K21.9 Gastro-esophageal reflux disease without esophagitis; E11.9 Type 2 diabetes mellitus without complications; F41.9 Anxiety disorder, unspecified; F32.9 Major depressive disorder, single episode, unspecified; E03.9 Hypothyroidism, unspecified; G47.33 Obstructive sleep apnea (adult) (pediatric); E66.01 Morbid (severe) obesity due to excess calories; I10 Essential (primary) hypertension; Z96.653 Presence of artificial knee joint, bilateral; Z83.3 Family history of diabetes mellitus; Z80.3 Family history of malignant neoplasm of breast; Z90.710 Acquired absence of both cervix and uterus; Z88.0 Allergy status to penicillin; Z88.8 Allergy status to other drugs, medicaments and biological substances; Z87.11 Personal history of peptic ulcer disease; Z79.01 Long term (current) use of anticoagulants; Z86.711 Personal history of pulmonary embolism

== ENCOUNTER 2018-07-30 11:09 | Inpatient (IN) | payer MEDICARE, OTHER, MEDICAID ==
[~2018-07-30] VITALS: Ht 165.1 cm; Wt 176.9 kg
[2018-07-30 11:15] VITALS: BP 119/100
[2018-07-30 11:50] LABS: ABSOLUTE BASOPHILS 0.1 thou/uL (0.0-0.2); ABSOLUTE LYMPHOCYTES 1.2 thou/uL (0.8-5.3); ABSOLUTE MONOCYTES 0.3 thou/uL (0.0-1.2); ABSOLUTE NEUTROPHILS 5.7 thou/uL (1.6-8.1); EOSINOPHILS 0.3 %; HEMATOCRIT 41.6 % (37.0-47.0); HEMOGLOBIN 13.5 gm/dL (12.0-15.0); LYMPHOCYTES 16.7 %; MCH 27.1 pg (26.0-34.0); MCHC 32.5 g/dL (28.0-37.0); MCV 83.4 fL (80.0-100.0); MONOCYTES 4.2 %; MPV 9.4 fl. (7.2-11.1); NUCLEATED RBCS 0 /100WBC; PLATELET COUNT* 182 thou/uL (150-400); POLYS 77.8 %; RBC 4.99 mil/uL (4.20-5.00); RDW-CV 14.5 % (10.5-14.5); WBC 7.3 thou/uL (4.0-11.0)
[2018-07-30 12:02] LABS: APTT 28.5 Seconds (25.0-31.3); INR 1.2; PROTIME 12.2 Seconds (9.20-11.50)
[2018-07-30 12:13] LABS: ALBUMIN 3.1 g/dL (3.4-5.0); ALKALINE PHOSPHATASE 128 U/L (46-116); ANION GAP 5 mmol/L (7-16); BUN 18 mg/dL (7-18); CALCIUM 8.9 mg/dL (8.5-10.1); CHLORIDE 106 mmol/L (98-107); CO2 30 mmol/L (21-32); CREATININE 1.1 mg/dL (0.6-1.3); GLUCOSE 184 mg/dL (70-99); NT-PRO BRAIN NAT PEPTIDE 12 pg/mL (<300); POTASSIUM 5.4 mmol/L (3.5-5.1); SGOT 55 U/L (15-37); SGPT 44 U/L (30-65); SODIUM 141 mmol/L (136-145); TOTAL BILIRUBIN 0.3 mg/dL (<0.1-1.0); TROPONIN-I LEVEL <0.06 ng/mL (<0.06)
[2018-07-30 14:43] VITALS: BP 102/64
--- NOTE | 2018-07-30 16:27 | 2DMMODE ---
[place] [address] 2 D/M-MODE ECHOCARDIOGRAM Name: ARMANDO MICHAEL Room: [address] IN [facility]#: [id number] Admission: 07/30/18 Attend Phys: Bradford Youngblood, Discharge: Date of : 54 Date of Service: 07/30/18 1626 Report #: [id number] THIS REPORT FOR: //name// APPROVED REPORT Study performed: 07/30/2018 14:55:47 EXAM: Limited 2D and color flow Echocardiogram Room #: 210 Status: routine BSA: 2.63 HR: 89 bpm BP: 102/64 mmHg Rhythm: NSR Other Information Technically limited study due to body habitus, poor endocardial definition. Indications Congestive Heart Failure Echo Enhancing Agent Indication: Endocardial border delineation Agent(s) / Amount(s) Used: Optison 3 cc 2D Dimensions Ascending Ao: 33.22 (22-36mm) Left Ventricle The left ventricle is normal size. There is normal left ventricular wall thickness. The left ventricular systolic function is normal. The left ventricular ejection fraction is within the normal range. Right Ventricle The right ventricle is normal size. The right ventricular systolic function is normal. Atria The left atrium size is normal. The right atrium size is normal. Aortic Valve The aortic valve is normal in structure. Aortic [place] [address] 2 D/M-MODE ECHOCARDIOGRAM Name: ARMANDO MICHAEL Room: [address] IN .R.#: [id number] Admission: 07/30/18 Attend Phys: Bradford Youngblood, Discharge: Date of : 54 Date of Service: 07/30/18 1626 Report #: [id number] Mitral Valve Mitral valve is not well visualized. Tricuspid Valve Tricuspid valve is not well visualized. Pulmonic Valve The pulmonary valve is normal in structure. Great Vessels The aortic root is normal in size. IVC is not well visualized. Pericardium There is no pericardial effusion. <Conclusion> The left ventricular systolic function is normal. The left ventricular ejection fraction is within the normal range. <ELECTRONICALLY SIGNED> By: Bob Castillo MD, FACC 07/30/18 1626 25 25 Bob Castillo MD, FACC /INF
[2018-07-30 19:30] VITALS: BP 130/57
[2018-07-31] VITALS: BP 125/54
[2018-07-31 04:00] VITALS: BP 115/48
[2018-07-31 04:58] LABS: ABSOLUTE LYMPHOCYTES 1.2 thou/uL (0.8-5.3); ABSOLUTE MONOCYTES 0.3 thou/uL (0.0-1.2); ABSOLUTE NEUTROPHILS 6.8 thou/uL (1.6-8.1); BASOPHILS 0.3 %; HEMATOCRIT 41.1 % (37.0-47.0); HEMOGLOBIN 13.3 gm/dL (12.0-15.0); LYMPHOCYTES 14.3 %; MCH 26.9 pg (26.0-34.0); MCHC 32.4 g/dL (28.0-37.0); MCV 83.1 fL (80.0-100.0); MONOCYTES 3.5 %; MPV 9.4 fl. (7.2-11.1); NUCLEATED RBCS 0 /100WBC; PLATELET COUNT* 204 thou/uL (150-400); POLYS 81.9 %; RBC 4.95 mil/uL (4.20-5.00); RDW-CV 14.6 % (10.5-14.5); WBC 8.4 thou/uL (4.0-11.0)
[2018-07-31 05:16] LABS: INR 1.2; PROTIME 12.2 Seconds (9.20-11.50)
[2018-07-31 05:36] LABS: CALCIUM 8.9 mg/dL (8.5-10.1); CREATININE 1.1 mg/dL (0.6-1.3); POTASSIUM 4.3 mmol/L (3.5-5.1)
[2018-07-31 08:00] VITALS: BP 113/56
[2018-07-31 12:52] VITALS: BP 125/75
--- NOTE | 2018-07-31 13:37 | EKG ---
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 : 1950 Requested By: Chris Srinivasan Order Number: [id number] MD: Rasheed White Measurements Intervals [place] Rate: 86 P: CT: QRS: 32 QRSD: 115 T: 238 QT: 389 QTc: 466 Interpretive Statements Sinus rhythm Low voltage, precordial leads Borderline repolarization abnormality Baseline wander in lead(s) V1 Compared to ECG 06/16/2018 18:57:24 significant changes noted Electronically Signed On 07-31-2018 13:37:25 CDT by Rasheed White [email or web address] <ELECTRONICALLY SIGNED> By: Rasheed White MD, FACC 07/31/18 1337 1405 1405 Rasheed White MD, FAC /EPI
[2018-07-31 17:20] VITALS: BP 128/43
[2018-07-31 19:30] VITALS: BP 118/64
[2018-08-01] VITALS: BP 110/55
[2018-08-01 04:00] VITALS: BP 112/63
[2018-08-01 05:34] LABS: INR 1.4; PROTIME 14.7 Seconds (9.20-11.50)
[2018-08-01 08:00] VITALS: BP 118/71
[2018-08-01] MEDS ORDERED: LASIX 40 MG TAB40 M2 PO (11:54)
[2018-08-01 12:03] VITALS: BP 118/71
== END 2018-08-01 12:28 | disposition home or self-care (01) | DRG 291 ==
LOC: M.ERS 11:09 → M.2W 13:05 → M.TBA-ER 13:05 → M.2W 14:39
PROVIDERS: Family Medicine; ADMIT Internal Medicine
DX: I50.33 Acute on chronic diastolic (congestive) heart failure (principal); J96.20 Acute and chronic respiratory failure, unspecified whether with hypoxia or hypercapnia; Z68.44 Body mass index [BMI] 60.0-69.9, adult; E66.2 Morbid (severe) obesity with alveolar hypoventilation; J44.1 Chronic obstructive pulmonary disease with (acute) exacerbation; F32.9 Major depressive disorder, single episode, unspecified; F41.1 Generalized anxiety disorder; E03.9 Hypothyroidism, unspecified; M19.90 Unspecified osteoarthritis, unspecified site; G89.29 Other chronic pain; K21.9 Gastro-esophageal reflux disease without esophagitis; Z86.711 Personal history of pulmonary embolism; Z86.14 Personal history of Methicillin resistant Staphylococcus aureus infection; Z90.710 Acquired absence of both cervix and uterus; Z79.84 Long term (current) use of oral hypoglycemic drugs; Z79.01 Long term (current) use of anticoagulants; Z79.899 Other long term (current) drug therapy; Z88.0 Allergy status to penicillin; Z88.8 Allergy status to other drugs, medicaments and biological substances; Z80.8 Family history of malignant neoplasm of other organs or systems; Z83.3 Family history of diabetes mellitus

== ENCOUNTER → 2018-07-30 | Outpatient (CLI) | payer MEDICARE, OTHER, MEDICAID ==
[~2018-07-30] MED LIST changes: +AMITRIPTYLINE H25 M2 PO; +CARAFATE 11 GM/10 M1 PO
== END ==
LOC: M.RAD 10:40 → EDBD 10:40
DX: J98.11 Atelectasis (principal)

== ENCOUNTER → 2018-08-26 | Outpatient (CLI) | payer MEDICARE, OTHER, MEDICAID | LOC: EDBD 10:09 → M.RAD 10:09 | DX: Z12.31 Encounter for screening mammogram for malignant neoplasm of breast (principal) ==

== ENCOUNTER 2018-10-07 12:05 | Emergency (ER) | payer MEDICARE, OTHER, MEDICAID ==
[~2018-10-07] VITALS: Ht 165.1 cm; Wt 183.2 kg
[2018-10-07 12:25] LABS: ABSOLUTE BASOPHILS 0.1 thou/uL (0.0-0.2); ABSOLUTE LYMPHOCYTES 1.9 thou/uL (0.8-5.3); ABSOLUTE MONOCYTES 0.5 thou/uL (0.0-1.2); ABSOLUTE NEUTROPHILS 7.3 thou/uL (1.6-8.1); BASOPHILS 1.4 %; EOSINOPHILS 0.4 %; HEMATOCRIT 44.5 % (37.0-47.0); HEMOGLOBIN 14.5 gm/dL (12.0-15.0); MCH 26.8 pg (26.0-34.0); MCHC 32.6 g/dL (28.0-37.0); MCV 82.1 fL (80.0-100.0); MONOCYTES 4.7 %; MPV 9.5 fl. (7.2-11.1); NUCLEATED RBCS 0 /100WBC; PLATELET COUNT* 209 thou/uL (150-400); POLYS 74.5 %; RBC 5.42 mil/uL (4.20-5.00); RDW-CV 15.8 % (10.5-14.5); WBC 9.8 thou/uL (4.0-11.0)
[2018-10-07 12:34] LABS: ANION GAP 8 mmol/L (7-16); BUN 20 mg/dL (7-18); CALCIUM 9.1 mg/dL (8.5-10.1); CHLORIDE 105 mmol/L (98-107); CO2 29 mmol/L (21-32); GLUCOSE 176 mg/dL (70-99); POTASSIUM 5.2 mmol/L (3.5-5.1); SODIUM 142 mmol/L (136-145)
[2018-10-07 12:37] LABS: INR 2.1; PROTIME 21.9 Seconds (9.20-11.50)
[2018-10-07 12:39] LABS: BE -1.5 mmol/L (-2 to +3); PCO2 39.2 mmHg (35.0-45.0); PO2 94.6 mmHg (75.0-100.0)
[2018-10-07 12:45] LABS: ALBUMIN 3.5 g/dL (3.4-5.0); ALKALINE PHOSPHATASE 101 U/L (46-116); MAGNESIUM 1.6 mg/dL (1.8-2.4); NT-PRO BRAIN NAT PEPTIDE 25 pg/mL (<300); SGOT 17 U/L (15-37); SGPT 27 U/L (30-65); TOTAL BILIRUBIN 0.5 mg/dL (<0.1-1.0); TOTAL PROTEIN 7.3 g/dL (6.4-8.2); TROPONIN-I LEVEL <0.06 ng/mL (<0.06)
[2018-10-07 15:17] LABS: URINE BILIRUBIN NEGATIVE (Negative); URINE BLOOD TRACE (Negative); URINE CLARITY CLEAR; URINE COLOR YELLOW; URINE GLUCOSE-RANDOM 3+ (Negative); URINE KETONES NEGATIVE (Negative); URINE LEUKOCYTES-REFLEX NEGATIVE (Negative); URINE NITRITE-REFLEX NEGATIVE (Negative); URINE PROTEIN NEGATIVE (Negative); URINE UROBILINOGEN 0.2 E.U./dl (0.2-1.0)
[2018-10-07 15:24] LABS: BACTERIA-REFLEX 1-9 Few /HPF (None Seen); CASTS None Seen /LPF (None Seen); CRYSTALS None Seen /LPF (None Seen); SQUAMOUS 0-3 Few /LPF (0-3); URINE RBC 0-2 Rare /HPF (0-2); URINE WBC-REFLEX 0-5 Rare /HPF (0-5)
[2018-10-07 15:42] VITALS: BP 106/62
--- NOTE | 2018-10-08 13:16 | EKG ---
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 : 1950 Requested By: Vidhya Lindsey Order Number: [id number] MD: David Albert Measurements Intervals [place] Rate: 70 P: CT: QRS: 45 QRSD: 91 T: 163 QT: 380 QTc: 410 Interpretive Statements sinus rhythm with brief period of atrial fib Low voltage, precordial leads Nonspecific T abnrm, anterolateral leads Compared to ECG 07/30/2018 14:05:27 atrial fib is noted Electronically Signed On 10-08-2018 13:16:05 CDT by David Albert [email or web address] <ELECTRONICALLY SIGNED> By: David Albert MD, [facility] 10/08/18 1316 1211 1211 David Albert MD, [facility] /EPI
== END 2018-10-07 15:40 | disposition home or self-care (01) ==
LOC: M.ERS 12:05
PROVIDERS: Personal Emergency Response Attendant
DX: R06.00 Dyspnea, unspecified (principal); R06.02 Shortness of breath; F41.9 Anxiety disorder, unspecified; E11.9 Type 2 diabetes mellitus without complications; E66.9 Obesity, unspecified; Z68.44 Body mass index [BMI] 60.0-69.9, adult; G47.33 Obstructive sleep apnea (adult) (pediatric); E03.9 Hypothyroidism, unspecified; Z96.653 Presence of artificial knee joint, bilateral; Z87.891 Personal history of nicotine dependence; Z88.0 Allergy status to penicillin; Z88.8 Allergy status to other drugs, medicaments and biological substances

== ENCOUNTER 2018-10-18 12:04 | Emergency (ER) | payer MEDICARE, OTHER, MEDICAID ==
[~2018-10-18] VITALS: Ht 165.1 cm; Wt 190.5 kg
[2018-10-18 12:37] LABS: ABSOLUTE BASOPHILS 0.1 thou/uL (0.0-0.2); ABSOLUTE MONOCYTES 0.4 thou/uL (0.0-1.2); ABSOLUTE NEUTROPHILS 5.5 thou/uL (1.6-8.1); EOSINOPHILS 0.3 %; HEMATOCRIT 41.8 % (37.0-47.0); HEMOGLOBIN 13.4 gm/dL (12.0-15.0); LYMPHOCYTES 14.2 %; MCH 26.4 pg (26.0-34.0); MCV 82.6 fL (80.0-100.0); MONOCYTES 5.6 %; MPV 9.5 fl. (7.2-11.1); NUCLEATED RBCS 0 /100WBC; PLATELET COUNT* 171 thou/uL (150-400); POLYS 78.9 %; RBC 5.06 mil/uL (4.20-5.00); RDW-CV 15.9 % (10.5-14.5)
[2018-10-18 12:52] LABS: INR 2.4; PROTIME 24.4 Seconds (9.20-11.50)
[2018-10-18 12:53] LABS: ANION GAP 8 mmol/L (7-16); BUN 18 mg/dL (7-18); CALCIUM 8.5 mg/dL (8.5-10.1); CHLORIDE 105 mmol/L (98-107); CO2 29 mmol/L (21-32); CREATININE 0.9 mg/dL (0.6-1.3); GLUCOSE 217 mg/dL (70-99); POTASSIUM 4.4 mmol/L (3.5-5.1); SODIUM 142 mmol/L (136-145)
[2018-10-18 12:59] LABS: ALBUMIN 3.2 g/dL (3.4-5.0); ALKALINE PHOSPHATASE 133 U/L (46-116); CK-MB MASS 0.7 ng/mL (<0.5-3.6); LIPASE 114 U/L (73-393); MAGNESIUM 1.7 mg/dL (1.8-2.4); NT-PRO BRAIN NAT PEPTIDE 16 pg/mL (<300); SGOT 152 U/L (15-37); SGPT 125 U/L (30-65); TOTAL BILIRUBIN 0.5 mg/dL (<0.1-1.0); TOTAL PROTEIN 6.8 g/dL (6.4-8.2); TROPONIN-I LEVEL <0.06 ng/mL (<0.06)
[2018-10-18 13:19] VITALS: BP 130/76
--- NOTE | 2018-10-20 16:53 | EKG ---
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 : 1950 Requested By: Chris Srinivasan Order Number: [id number] MD: David Albert Measurements Intervals [place] Rate: 84 P: [place]: QRS: 29 QRSD: 105 T: 223 QT: 365 QTc: 432 Interpretive Statements Sinus rhythm Low voltage, precordial leads Nonspecific T abnormalities, diffuse leads Compared to ECG 10/07/2018 12:11:45 T-wave abnormality now present Electronically Signed On 10-20-2018 16:53:25 CDT by David Albert [email or web address] <ELECTRONICALLY SIGNED> By: David Albert MD, [facility] 10/20/18 1653 1209 1209 David Albert MD, [facility] /EPI
== END 2018-10-18 13:20 | disposition home or self-care (01) ==
LOC: M.ERS 12:04
PROVIDERS: Family Medicine
DX: R07.89 Other chest pain (principal); R06.00 Dyspnea, unspecified; F41.9 Anxiety disorder, unspecified; E11.9 Type 2 diabetes mellitus without complications; E66.9 Obesity, unspecified; Z68.44 Body mass index [BMI] 60.0-69.9, adult; G47.33 Obstructive sleep apnea (adult) (pediatric); Z87.891 Personal history of nicotine dependence; Z88.0 Allergy status to penicillin; Z88.8 Allergy status to other drugs, medicaments and biological substances

== ENCOUNTER 2018-11-25 09:38 | Inpatient (IN) | payer MEDICARE, OTHER, MEDICAID ==
[~2018-11-25] VITALS: Ht 152.4 cm; Wt 187.4 kg
--- NOTE | ~2018-11-25 | CON ---
[address] [address] CONSULTATION Name: ARMANDO MICHAEL Room: [address] IN .R.#: [id number] Admission: 11/25/18 Attend Phys: Rhoda Irby MD Discharge: Date of : 54 Report #: [id number] THIS REPORT FOR: //name// CC: Andrew Irby DICTATED BY: Karen Mtz [facility] DATE OF SERVICE: 11/27/2018 Please note at the time of this dictation, the patient was seen and physically examined by myself. REASON FOR CONSULTATION: Epigastric pain, GERD. HISTORY OF PRESENT ILLNESS: This 68-year-old female presented to the Emergency Room via ambulance complaining of chest pain that started the evening prior to admission. She states it is in the epigastric area and radiates into her back, which made her feel short of breath with this. The patient did undergo an EGD in May of this year by Dr. Patrick for the exact same reason and it was completely normal. She had a barium swallow done back in 09/2017 that was negative with occasional tertiary contractions that were noted. The patient has been continuing to take her omeprazole daily; and she states after her EGD, she did not have any further problems until about a week ago. She states that every time she eats, she will have this epigastric pain. She denies any NSAID use at this time and she is on anticoagulant therapy for history of a PE in the past. She denies any difficulty swallowing or she feels worsening of her acid reflux or any food getting stuck at this time. ALLERGIES: PENICILLIN AND REGLAN. MEDICATIONS: From home include metformin, Synthroid, Abilify, Xanax, Jardiance, Neurontin, Glucotrol, Elavil, Lasix, Tradjenta and Coumadin. PAST MEDICAL HISTORY: History of a PE in 2010, hypothyroidism, morbid obesity, anxiety disorder, noninsulin dependent diabetes, herniated disk, osteoarthritis. PAST SURGICAL HISTORY: Bilateral knees, left breast biopsy, hysterectomy. FAMILY HISTORY: Negative for any GI or female cancers. SOCIAL HISTORY: Past use of cigarettes. Denies any alcohol or illegal drug use. REVIEW OF SYSTEMS: Twelve-point review [place] [address] CONSULTATION Name: ARMANDO MICHAEL Room: [address]#: [id number] Admission: 11/25/18 Attend Phys: Rhoda Irby MD Discharge: Date of : 54 Report #: [id number] except what is mentioned in the HPI. PHYSICAL EXAMINATION: VITAL SIGNS: Temperature 36.4, pulse 69, respirations 14, blood pressure 131/69. HEART: Regular rate and rhythm. LUNGS: Diminished. ABDOMEN: Morbidly obese with pannus noted. Positive bowel sounds in all 4 quadrants, with some slight epigastric tenderness noted to palpation. LABORATORY DATA: White count 5.1, hemoglobin 13, platelets 157. PT is 25.9, INR is 2.5. GFR is 72. Lipase is normal at 107. Chest x-ray was completely normal. IMPRESSION: 1. Epigastric pain after eating. 2. Gastroesophageal reflux disease. 3. Morbid obesity. 4. Recent esophagogastroduodenoscopy negative in 05/2018. 5. Chronic obstructive pulmonary disease. 6. Anticoagulant therapy, warfarin, for pulmonary embolism. PLAN: 1. Barium swallow. 2. Consider increasing her amitriptyline to 50 mg. 3. Further recommendations to be made after Dr. Camarena sees the patient later today. Thank you for allowing us to participate in this patient's care. Please do not hesitate to call with any questions in regard to this consult. By: 1218 [id number] Camarena MD /nt
[2018-11-25 10:51] LABS: ABSOLUTE BASOPHILS 0.1 thou/uL (0.0-0.2); ABSOLUTE EOSINOPHILS 0.1 thou/uL (0.0-0.7); ABSOLUTE LYMPHOCYTES 1.4 thou/uL (0.8-5.3); ABSOLUTE MONOCYTES 0.4 thou/uL (0.0-1.2); ABSOLUTE NEUTROPHILS 3.1 thou/uL (1.6-8.1); BASOPHILS 1.2 %; EOSINOPHILS 1.5 %; HEMATOCRIT 40.2 % (37.0-47.0); LYMPHOCYTES 27.4 %; MCH 26.7 pg (26.0-34.0); MCHC 32.2 g/dL (28.0-37.0); MCV 82.8 fL (80.0-100.0); MONOCYTES 7.9 %; MPV 9.5 fl. (7.2-11.1); NUCLEATED RBCS 0 /100WBC; PLATELET COUNT* 157 thou/uL (150-400); RBC 4.85 mil/uL (4.20-5.00); RDW-CV 15.6 % (10.5-14.5); WBC 5.1 thou/uL (4.0-11.0)
[2018-11-25 10:56] LABS: INR 2.9; PROTIME 29.1 Seconds (9.20-11.50)
[2018-11-25 10:57] LABS: ANION GAP 4 mmol/L (7-16); BUN 12 mg/dL (7-18); CALCIUM 8.3 mg/dL (8.5-10.1); CHLORIDE 108 mmol/L (98-107); CO2 32 mmol/L (21-32); CREATININE 0.8 mg/dL (0.6-1.3); GLUCOSE 142 mg/dL (70-99); POTASSIUM 4.6 mmol/L (3.5-5.1); SODIUM 144 mmol/L (136-145)
[2018-11-25 11:07] LABS: ALKALINE PHOSPHATASE 77 U/L (46-116); LIPASE 107 U/L (73-393); NT-PRO BRAIN NAT PEPTIDE 91 pg/mL (<300); SGOT 20 U/L (15-37); SGPT 30 U/L (30-65); TOTAL BILIRUBIN 0.6 mg/dL (<0.1-1.0); TOTAL PROTEIN 6.4 g/dL (6.4-8.2); TROPONIN-I LEVEL <0.06 ng/mL (<0.06)
--- NOTE | 2018-11-25 15:30 | EKG ---
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1950 Requested By: Vidhya Lindsey Order Number: [id number] MD: Rasheed White Measurements Intervals [place] Rate: 63 P: 36 SC: 182 QRS: 51 QRSD: 105 T: QT: 479 QTc: 491 Interpretive Statements Sinus rhythm with sinus arrhythmia Low voltage, precordial leads Borderline T abnormalities, anterior leads Borderline prolonged QT interval Baseline wander in lead(s) I,III,aVL Compared to ECG 10/18/2018 12:09:48 no significant changes noted Electronically Signed On 11-25-2018 15:30:02 CDT by Rasheed White [email or web address] <ELECTRONICALLY SIGNED> By: Rasheed White MD, FACC 11/25/18 1530 0943 Rasheed White MD, [facility] /EPI
[2018-11-25 16:25] VITALS: BP 138/88
[2018-11-25 16:40] VITALS: BP 137/75
--- NOTE | 2018-11-25 17:13 | NUR ---
RECEIEVIED REPORT FROM NIMO RN IN ER OF EXPECTED ADMISSION AT 1612- DX: CHEST PAIN; DYSPNEA- PT ARRIVED TO ROOM 224 VIA CART AT 1627- SURGICAL ASSISTANT CERTIFIED PLACED ORDERED, TRACING SR WITH PAC- PT A&O X4, FORGETFULL- CONTINENT OF B/B- SBA WITH TRANSFERS FOR SAFETY- LCTA, DIMINISHED IN BASES- DYSPNEA NOTED ON EXERTION-PT REPORTS TO WEAR CPAP AT HOME, BUT DID NOT BRING TO HOSPITAL TO USE- VS 97.5 22 137/75 59 98% ON 2L VIA NC- ABD OBESE/SOFT/NON-TENDER, BS X4 QUADS- PT REPORTS LAST BM THIS AM- TREMOR NOTED TO TESFAYE UE- IV NOTED TO LEFT HAND INTACT AND SL- BS NOTED TO BE 150 AT TIME OF ADMISSION- PANNUS FOLDS NOTED WITH REDNESS/RASH- RIGHT BREAST NOTED WITH PINKNESS UNDER- SCAB NOTED TO CHANELLE WITH PICTURES OBTAINED AND PLACED ON CHART- ABD SCAB/BURN NOTED TO LEFT LOWER ABD, PT REPORTS TO HAVE LEXII SELF AT HOME WITH BOILING WATER- 1-2+ NON-PITTING EDEMA NOTED TO BLE WITH PINKNESS- CALUS NOTED TO TESFAYE HEELS- PT REPORTS CHEST PRESSURE 6/10 AT TIME OF ADMISSION- CALL LIGHT AND PERSONAL BELONGINGS WITH IN REACH- HOURLY ROUNDS IN PLACE R/T SAFETY/NEEDS- ALL NEEDS MET AT THIS TIME-WCTM
[2018-11-25] MEDS ORDERED: NORCO 10-325 T1 EAC1 PO (17:30)
[2018-11-25 19:21] LABS: BE -0.4 mmol/L (-2 to +3); PO2 87.7 mmHg (75.0-100.0)
[2018-11-25 19:24] LABS: PCO2 64.6 mmHg (35.0-45.0); pH 7.259 (7.340-7.450)
[2018-11-25 19:50] VITALS: BP 115/45
[2018-11-25 20:25] LABS: MAGNESIUM 1.9 mg/dL (1.8-2.4); TROPONIN-I LEVEL <0.06 ng/mL (<0.06)
[2018-11-26 00:03] VITALS: BP 142/68
[2018-11-26 04:00] VITALS: BP 167/96
[2018-11-26 05:44] LABS: ABSOLUTE EOSINOPHILS 0.1 thou/uL (0.0-0.7); ABSOLUTE LYMPHOCYTES 1.4 thou/uL (0.8-5.3); ABSOLUTE MONOCYTES 0.4 thou/uL (0.0-1.2); ABSOLUTE NEUTROPHILS 3.4 thou/uL (1.6-8.1); BASOPHILS 0.8 %; EOSINOPHILS 1.1 %; HEMATOCRIT 41.7 % (37.0-47.0); HEMOGLOBIN 13.4 gm/dL (12.0-15.0); LYMPHOCYTES 26.3 %; MCH 27.3 pg (26.0-34.0); MCHC 32.1 g/dL (28.0-37.0); MCV 84.9 fL (80.0-100.0); MONOCYTES 8.1 %; NUCLEATED RBCS 0 /100WBC; PLATELET COUNT* 174 thou/uL (150-400); POLYS 63.7 %; RBC 4.91 mil/uL (4.20-5.00); RDW-CV 16.6 % (10.5-14.5); WBC 5.3 thou/uL (4.0-11.0)
[2018-11-26 05:57] LABS: ANION GAP 5 mmol/L (7-16); BUN 13 mg/dL (7-18); CALCIUM 8.7 mg/dL (8.5-10.1); CHLORIDE 106 mmol/L (98-107); CO2 34 mmol/L (21-32); CREATININE 0.9 mg/dL (0.6-1.3); GLUCOSE 143 mg/dL (70-99); POTASSIUM 5.5 mmol/L (3.5-5.1); SODIUM 145 mmol/L (136-145); TROPONIN-I LEVEL <0.06 ng/mL (<0.06)
--- NOTE | 2018-11-26 07:23 | NUR ---
PT CARE ASSUMED AT 1930. SAT MAINTAINED IN BIPAP. ALERT AND ORIENTED X4 BUT FORGETFUL. CALL LIGHT WITHIN REACH AND BED IN LOW POSITION. DENIES PAIN. SOB WITH EXERTION. HOURLY ROUNDING DONE FOR PT SAFETY.
[2018-11-26 07:43] VITALS: BP 108/53
[2018-11-26 07:58] LABS: BE 1.4 mmol/L (-2 to +3); PO2 90.6 mmHg (75.0-100.0); pH 7.301 (7.340-7.450)
[2018-11-26 08:00] LABS: PCO2 60.7 mmHg (35.0-45.0)
--- NOTE | 2018-11-26 08:27 | NUR ---
ASSUMED CARE OF PT THIS AM AROUND 0715- RN OCCUPATIONAL IN PLACE ORDERED, TRACING SR- UPON ASSESSMENT PT NOTED TO BE RESTING IN BED, EYES CLOSED- PT ARROUSABLE AND A&O X4- CONTINENT OF BOWEL AND BLADDER- SBA WITH TRANSFERS TO BED SIDE COMMODE- DYSPNEA NOTED ON EXERTION- VSS, O2 SAT 97% ON 2L VIA NC- BIPAP ENCOURAGED THIS AM- ABD OBESE/SOFT/NON-TENDER, BS X4 QUADS- LAST BM REPOTED 11/25/18-GOOD PO INTAKE NOTED THIS AM- IV NOTED TO LEFT HAND INTACT AND SL-1-2+ BLE EDEMA NOTED- TREMORS NOTED TO UE- PT DENIES ANY C/O PAIN/DISCOMFORT AT THIS TIME- CALL LIGHT AND PERSONAL BELONGINGS WITH IN REACH- HOURLY ROUNDS IN PLACE R/T SAFETY/NEEDS- ALL NEEDS MET AT THIS TIME-WCTM
--- NOTE | 2018-11-26 10:31 | EKG ---
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: : 1950 Requested By: Rhoda Irby Order Number: [id number] Reading MD: Bob Castillo Measurements Intervals [place] Rate: 65 P: -7 [place]: 165 QRS: 31 QRSD: 98 T: -84 QT: 399 QTc: 415 Interpretive Statements Sinus rhythm Borderline repolarization abnormality Compared to ECG 11/25/2018 09:43:38 Sinus arrhythmia no longer present Electronically Signed On 11-26-2018 10:31:07 CDT by Bob Castillo [email or web address] <ELECTRONICALLY SIGNED> By: Bob Castillo MD, [facility] 11/26/18 1031 0807 0807 Bob Castillo MD, [facility] /EPI
--- NOTE | 2018-11-26 10:52 | NUR ---
MET WITH PT TO DISCUSS HOME SITUATION/DC PLANNING. PT LIVES ALONE. HAS SUPPORTIVE FRIEND AND A SISTER THAT SHE 'DOESN'T REALLY TALK TO.' PT DOESN'T HAVE A DPOA, NOT READY TO COMPLETE BUT WILLING TO TAKE THE INFO. PT IS INDEPENDENT, DRIVES AND DOES OWN ADLS, SHOPPING. SHE HAS MEDICAID HOMEMAKER 1.5HR/WEEK FOR CLEANING AND LAUNDRY. PT USES CANE AND CPAP. HAS HAD HH AND BEEN TO [facility] IN PAST. DENIES ANY DC NEEDS AT THIS TIME, DECLINES HH ALSO. WILL FOLLOW
[2018-11-26 11:31] VITALS: BP 187/82
[2018-11-26 15:34] VITALS: BP 134/63
--- NOTE | 2018-11-26 16:19 | NUR ---
PT CURRENTLY RESTING IN BED, BIPAP IN USE AND ENCOURAGED MOST SHIFT EXCEPT WITH MEALS- GOOD PO INTAKE NOTED THIS SHIFT WITH MEALS, BS MONITORED THIS SHIFT ORDERED AND CONTROLLED PER ORAL MEDICATIONS- PULMONARY AND GI CONSULTED THIS SHIFT- ABG'S TO BE REPEATED IN AM- IV NOTED TO LEFT HAND INTACT AND SL- US OF TESFAYE LE ORDERED AND COMPLETED WITH RESULTS NOTED TO BE NEGATIVE FOR DVT-CALL LIGHT AND PERSONAL BELONGINGS WITH IN REACH- PT MAKES NEEDS KNOWN- ALL NEEDS MET AT THIS TIME-WCTM
[2018-11-27] VITALS: BP 107/49
[2018-11-27 04:00] VITALS: BP 129/40
[2018-11-27 04:42] LABS: INR 2.5; PROTIME 25.9 Seconds (9.20-11.50)
[2018-11-27 04:44] LABS: CALCIUM 8.3 mg/dL (8.5-10.1); CREATININE 0.8 mg/dL (0.6-1.3)
[2018-11-27 04:55] LABS: POTASSIUM 3.9 mmol/L (3.5-5.1)
--- NOTE | 2018-11-27 05:47 | NUR ---
PT CARE ASSUMED AT 1930. SAT MAINTAINED IN BIPAP. ALERT AND ORIENTED X4. CALL LIGHT WITHIN REACH AND BED IN LOW POSITION. C/O PAIN, MEDICATION GIVEN PER EMAR. HOURLY ROUNDING DONE FOR PT SAFETY.
--- NOTE | 2018-11-27 07:36 | CON ---
[address] [address] CONSULTATION Name: FERNANDAARMANDO WASHINGTON Room: [address] IN M.R.#: [id number] Admission: 11/25/18 Attend Phys: Rhoda Irby MD Discharge: Date of : 54 Report #: [id number] THIS REPORT FOR: //name// CC: Andrew Irby REQUESTING PHYSICIAN: Rhoda Irby MD REASON FOR CONSULTATION: Complaints of shortness of breath, hypercapnia, and known history of severe obstructive sleep apnea. DISCUSSION: The patient is a pleasant 68-year-old nonsmoking woman who has a history of severe obstructive sleep apnea. This was diagnosed on sleep study in the past. She does have BiPAP at home. She notes she is compliant with her BiPAP. Does not require supplemental oxygen with that. However, she presented to the Emergency Department yesterday. She has several day history of increasing shortness of breath and chest pain. Points to the middle of her chest. She notes it goes through to the back. Associated with this, she has intermittently now developed some difficulty swallowing. The pain is worse after she eats. She has not had any vomiting. No hematemesis. It has made her more short of breath. She is concerned that it could be her esophagus and reflux issues as she has had those in the past. She is a nonsmoker. No history of definite pulmonary disease. She does have secondhand smoke exposure in the past. 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 She has no pets at home. Not on any inhalers and not on any oxygen at home. Reviewing records here at [facility], appears baseline. She does not have any hypercapnia. At other time, she has had marked hypercapnia. Reviewing those notes, at various times may be when she has had higher doses of pain medications or other acute illness on top of her chronic problems. She continues to struggle with her weight. At times, it may fluctuate up and down. Overall, she believes there probably has not been a significant change. Her history is also remarkable for remote history of thromboembolic disease. She was diagnosed with PE quite some time ago. She has been chronically anticoagulated. She continues with warfarin and she was therapeutic with that yesterday. She has not noted any swelling of her lower extremities. She does note that she fell about a week ago, was down on her knees. She does take some chronic narcotics at home every 6 hours, but she denies increasing the dose even after her fall last week. She did not hit her chest. PAST MEDICAL HISTORY: She has got a very extensive past medical history. She has a history of very severe obstructive sleep apnea as noted. Sleep study done in the past year revealed that she had an apnea-hypopnea index of 75 [place] [address] CONSULTATION Name: ARMANDO MICHAEL Room: [address] IN .R.#: [id number] Admission: 11/25/18 Attend Phys: Rhoda Irby MD Discharge: Date of : 54 Report #: [id number] desaturation. With use of BiPAP, pressures of 14/10, her apnea-hypopnea index improved to 1.1 and no supplemental oxygen was required with pressures at that setting. Does have a history of microcytic anemia. She has had EGDs and colonoscopies in the past along with GERD. She had had cervical neck fusion back in the , has had cholecystectomy, hysterectomy, carpal tunnel release, morbid obesity, has had bilateral knee surgeries, prior episodes of lower extremity cellulitis, had 2 total knee replacements, hypothyroidism, and diabetes mellitus type 2. MEDICATIONS: At home, her medications include, she notes, Prilosec daily, though her medication records indicate it is Nexium, atorvastatin, potassium, metformin, levothyroxine, Abilify, alprazolam p.r.n., Jardiance, gabapentin, glipizide, amitriptyline, Lasix, Climax which she notes she does every 6-8 hours, Tradjenta, and warfarin 10 mg a day. SOCIAL HISTORY: She is a lifelong nonsmoker. Does have secondhand smoke exposure. She is a . No pets at home. FAMILY HISTORY: Positive for cancers. REVIEW OF SYSTEMS: ROS was done. Note positives above. She did not have a syncopal episode contributing to her fall. She notes she is compliant with using her BiPAP every time she sleeps. Does sleep with the head of the bed elevated with several pillows and has done so for long time. She intermittently does have some active reflux into the back of her throat. The dysphagia and pain with p.o. intake is relatively new over the last week or so. She has not had any hematemesis or blood in her stools. She is known to be chronically anemic. She has not noted any swelling in her lower extremities. She has not had any pain that is reproducible in her chest area. No headaches. PHYSICAL EXAMINATION: GENERAL: She is morbidly obese woman. She is alert, cooperative. She is in no acute distress. HEENT: Head is normocephalic and atraumatic. Sclerae are nonicteric. Mucous membranes are moist. NECK: Large, supple without adenopathy noted. CARDIOVASCULAR: Heart tones are distant, but appear regular. LUNGS: Reveal breath sounds to be mildly diminished and due in part to her body habitus. No wheezing is heard. No crackles. Excursion is equal. Cannot reproduce any pain with palpation over her chest wall, particularly over her sternal area. ABDOMEN: Obese, but soft. May have some mild discomfort in the upper epigastrium. EXTREMITIES: She has no clubbing. Radial pulses are present. Lower extremities are negative for edema. Has healed scars present over her knees. Does have some mild venous stasis changes and a few [place] [address] CONSULTATION Name: ARMANDO MICHAEL Room: [address] IN [facility]#: [id number] Admission: 11/25/18 Attend Phys: Rhoda Irby MD Discharge: Date of : 54 Report #: [id number] No calf tenderness. SKIN: Warm and dry. NEUROLOGIC: She is alert and oriented x 3. LABORATORY AND X-RAY FINDINGS: A portable chest x-ray done in the ED shows some mild cardiomegaly. Suboptimal inspiration. May have some mild atelectatic changes seen in the bases, but this is unchanged relative to older studies done. Her last CT chest was now quite 2 years ago. No pulmonary nodules. There is no mention of PEs or lack of. She had a CT scan done of her abdomen and pelvis back in 04/2018. There is mention she had multiple rib fractures noted on the right. Had fatty infiltration of the liver. Arterial blood gases done initially yesterday evening, she had a pH of 7.26, pCO2 of 65, pO2 of 88 with bicarbonate of 28, that was on nasal cannula. Blood gases done early this morning coming off the BiPAP and on nasal cannula, pH up to 7.30, pCO2 of 61, pO2 of 91, bicarbonate of 29 with saturation 95%. Reviewing older blood gases, appears at baseline, which includes, one done in 09/2018, her pH was 7.39 with pCO2 of 39 and pO2 was 95 on 2 liters. She was hypercapnic in April when she was here with a high pCO2 of 90. Her TSH is normal. BUN of 13, creatinine of 0.9, and potassium is 5.5. White blood cell count 5300, hemoglobin 13.4, hematocrit of 41.7, which is actually improved for her. MCV was normal. Echocardiogram done this spring revealed preserved left ventricular function. Right ventricle was normal. She did have a heart catheterization done in 05/2018. She had normal coronary arteries and normal left ventricular systolic functions. IMPRESSION: 1. Acute respiratory failure. It is improving. She was hypercapnic and has required low flow oxygen as well. It is not clear what may have triggered this. By history, she is compliant with using her BiPAP at night and with all naps during the day. She is taking her thyroid and her TSH is not elevated, so that rules that out. By history, does not have significant underlying pulmonary disease or obstructive lung disease. Certainly not been bronchospastic. 2. Complaints of chest pain. Not likely to be cardiac. She had normal coronary arteries in 05/2018 when she had a heart catheterization done. She does note she has a known history of gastroesophageal reflux disease. She is now also having some mild dysphagia and pain with p.o. intake. This could be related to gastroesophageal reflux disease. Did not have strictures noted previously, though theoretically she may have formed one. Could be chest wall pain, though I cannot reproduce the pain at the time of my visit with her. 3. Morbid obesity. 4. History of anemia, appears stable to actually improved. 5. Chronic narcotic usage. She denies increasing the doses despite a recent fall. 6. Remote history of thromboembolic disease. Remains chronically anticoagulated with warfarin. It is therapeutic, which would [place] [address] CONSULTATION Name: ARMANDO MICHAEL Room: [address] IN .R.#: [id number] Admission: 11/25/18 Attend Phys: Rhoda Irby MD Discharge: Date of : 54 Report #: [id number] RECOMMENDATIONS: 1. We will check venous Dopplers to be complete. 2. Continue with hospital BiPAP while sleeping with her naps as well as p.r.n. 3. Wean O2 as able. 4. Per the patient's request, also ask GI to see her. 5. We will check venous Dopplers to be completed. <ELECTRONICALLY SIGNED> By: Saud Pleitez MD 11/27/18 0736 1159 [id number] Zuniga MD /nt
[2018-11-27 08:00] VITALS: BP 131/69
[2018-11-27 09:16] LABS: BE 2.3 mmol/L (-2 to +3); PO2 84.9 mmHg (75.0-100.0); pH 7.331 (7.340-7.450)
[2018-11-27 09:19] LABS: PCO2 57.2 mmHg (35.0-45.0)
[2018-11-27 12:24] VITALS: BP 119/59
[2018-11-27 15:59] VITALS: BP 133/50
--- NOTE | 2018-11-27 19:18 | NUR ---
ASSUMED PT CARE REPORT RECEIVED FROM NURSE. PT IS AOX4 SR ON HAND COLLATOR. ON 2 L NC. SATURATION ABOVE 95%. ON BIPAP PRN. PT ONLY WORE BIPAP TWICE TODAY PER REQUEST. PT UP WITH ASSIST. [facility] . O2 SAT REMAINS ABOVE 90% WHILE AMBULATING IN HALLWAY. PAIN MEDICINE GIVEN FOR PAIN IN LEFT LEG. PT IS CURRENTLY IN ROOM. NO MORE COMPLAINT
[2018-11-27 19:40] VITALS: BP 137/91
[2018-11-28] VITALS (7 sets, daily range): BP systolic 115–158; BP diastolic 57–83
--- NOTE | 2018-11-28 07:39 | NUR ---
PT CARE ASSUMED AT 1930. SAT MAINTAINED IN BIPAP. CALL LIGHT WITHIN REACH AND BED IN LOW POSITION. ALERT AND ORIENTED X4. HOURLY ROUNDING DONE FOR PT SAFETY. C/O PAIN, MEDICATION GIVEN PER EMAR. DENIES NAUSEA.
--- NOTE | 2018-11-28 10:41 | NUR ---
CONTINUE TO FOLLOW, MET WITH PT. SHE WAS UP IN CHAIR. CORRECTION: PT HAS A BIPAP AT HOME NOT CPAP. SHE DENIES ANY DC NEEDS, HOPES TO GO HOME SOON
--- NOTE | 2018-11-28 13:48 | NUR ---
assumed pt care report received from nurse.pt is aox4 sr on ekg monitor tech. on 2 l nc. pt has no complaint. discharge ordered but GI ordered [facility] swallowing test for pt. radiology is able to have the test done today. pt made aware. pt had the RT rest and activity study done this afternoon. according to RT , pt did poorly on room air and will need 4 l of oxygen nc at home continuously in addition to pt bipap use at home. pt educated. pt refuses to wear oxygen at home due to heavy weight of o2 tank. protective services case worker informed so that a credit or loans officer o2 container can be found. pt made aware. awaiting [facility] study.
--- NOTE | 2018-11-28 14:17 | NUR ---
PT QUALIFIED FOR O2 WITH ACTIVITY. PER RN, PT REFUSING TO HAVE ANYTHING BUT A SMALL PORTABLE CONCENTRATOR. MET WITH PT, SHE PREFERS IT, BUT UNDERSTOOD MAY HAVE TO HAVE TANKS INITIALLY UNTIL PORTABLE CONCENTRATOR CAN BE DELIVERED. CALLED AND FAXED ORDERS TO [facility], WILL BE DELIVERED BY 4PM. NO OTHER NEEDS ID'D DID CHECK WITH [facility], THEY STATED IT WOULD BE OVER A WEEK BEFORE A CONCENTRATOR COULD BE ARRANGED AND PT WANTED IT SOONER
--- NOTE | 2018-11-28 16:32 | NUR ---
PT LEFT FLOOR ACCOMPANIED BY NURSE STAFF ON WHEELCHAIR.PORTABLE OXYGEN ADJUSTED AT 4 LITERS. PT TO GO HOME WITH RIDE FROM HER FRIEND
== END 2018-11-28 16:32 | disposition home or self-care (01) | DRG 205 ==
LOC: M.ERS 09:38 → M.TBA-ER 12:52 → M.2W 12:52
PROVIDERS: Internal Medicine Pulmonary Disease; Personal Emergency Response Attendant; ADMIT Family Medicine
PROC: 5A09357 Assistance with Respiratory Ventilation, Less than 24 Consecutive Hours, Continuous Positive Airway Pressure (ICD-10-PCS; principal; 2018-11-25)
PROC: 5A09357 Assistance with Respiratory Ventilation, Less than 24 Consecutive Hours, Continuous Positive Airway Pressure (ICD-10-PCS; 2018-11-26)
PROC: 5A09357 Assistance with Respiratory Ventilation, Less than 24 Consecutive Hours, Continuous Positive Airway Pressure (ICD-10-PCS; 2018-11-28)
DX: M94.0 Chondrocostal junction syndrome [Tietze] (principal); J96.02 Acute respiratory failure with hypercapnia; J96.01 Acute respiratory failure with hypoxia; Z68.45 Body mass index [BMI] 70 or greater, adult; F11.20 Opioid dependence, uncomplicated; I50.32 Chronic diastolic (congestive) heart failure; E87.2 Acidosis; F32.9 Major depressive disorder, single episode, unspecified; E11.9 Type 2 diabetes mellitus without complications; F41.9 Anxiety disorder, unspecified; Z96.653 Presence of artificial knee joint, bilateral; E03.9 Hypothyroidism, unspecified; E66.01 Morbid (severe) obesity due to excess calories; G47.33 Obstructive sleep apnea (adult) (pediatric); F39 Unspecified mood [affective] disorder; M19.90 Unspecified osteoarthritis, unspecified site; J44.9 Chronic obstructive pulmonary disease, unspecified; Z79.01 Long term (current) use of anticoagulants; Z83.3 Family history of diabetes mellitus; Z90.710 Acquired absence of both cervix and uterus; Z86.14 Personal history of Methicillin resistant Staphylococcus aureus infection; Z88.0 Allergy status to penicillin; Z88.8 Allergy status to other drugs, medicaments and biological substances; Z87.891 Personal history of nicotine dependence; Z90.49 Acquired absence of other specified parts of digestive tract; Z80.9 Family history of malignant neoplasm, unspecified; Z86.711 Personal history of pulmonary embolism; Z79.899 Other long term (current) drug therapy

== ENCOUNTER 2019-02-26 09:42 | Inpatient (IN) | payer MEDICARE, OTHER, MEDICAID ==
[~2019-02-26] VITALS: Ht 165.1 cm; Wt 197.3 kg
[~2019-02-26 09:42] MED LIST changes: +NORCO 10-325 T1 EAC1 PO
[2019-02-26 09:48] VITALS: BP 187/80
[2019-02-26 10:07] LABS: ABSOLUTE BASOPHILS 0.1 thou/uL (0.0-0.2); ABSOLUTE EOSINOPHILS 0.1 thou/uL (0.0-0.7); ABSOLUTE LYMPHOCYTES 1.6 thou/uL (0.8-5.3); ABSOLUTE MONOCYTES 0.5 thou/uL (0.0-1.2); ABSOLUTE NEUTROPHILS 7.2 thou/uL (1.6-8.1); BASOPHILS 0.7 %; EOSINOPHILS 0.6 %; HEMATOCRIT 41.3 % (37.0-47.0); HEMOGLOBIN 13.4 gm/dL (12.0-15.0); LYMPHOCYTES 16.7 %; MCH 27.2 pg (26.0-34.0); MCHC 32.5 g/dL (28.0-37.0); MCV 83.7 fL (80.0-100.0); MONOCYTES 5.4 %; MPV 9.4 fl. (7.2-11.1); NUCLEATED RBCS 0 /100WBC; PLATELET COUNT* 193 thou/uL (150-400); POLYS 76.6 %; RBC 4.93 mil/uL (4.20-5.00); RDW-CV 15.8 % (10.5-14.5); WBC 9.4 thou/uL (4.0-11.0)
--- NOTE | 2019-02-26 10:11 | NUR ---
INITIAL ATTEMPT AT EKG WAS UNSUCCESSFUL DUE TO PT'S TREMORS. ATIVAN WAS GIVEN TO PATIENT AND EKG WILL BE ATTEMPTED AGAIN ONCE TREMORS HAVE SUBSIDED.
[2019-02-26 10:17] LABS: INR 4.2; PROTIME 40.9 Seconds (9.20-11.50)
[2019-02-26 10:24] LABS: CALCIUM 8.6 mg/dL (8.5-10.1)
[2019-02-26 10:28] LABS: TOTAL BILIRUBIN 0.4 mg/dL (<0.1-1.0); TOTAL PROTEIN 6.7 g/dL (6.4-8.2)
[2019-02-26 13:12] VITALS: BP 131/69
[2019-02-26 13:12] LABS: BE -2.4 mmol/L (-2 to +3); PO2 93.5 mmHg (75.0-100.0)
[2019-02-26 13:14] LABS: PCO2 52.5 mmHg (35.0-45.0); pH 7.292 (7.340-7.450)
[2019-02-26 13:41] VITALS: BP 141/79
[2019-02-26 14:02] LABS: URINE BILIRUBIN NEGATIVE (Negative); URINE BLOOD TRACE (Negative); URINE CLARITY CLEAR; URINE COLOR YELLOW; URINE GLUCOSE-RANDOM 3+ (Negative); URINE KETONES NEGATIVE (Negative); URINE LEUKOCYTES-REFLEX NEGATIVE (Negative); URINE NITRITE-REFLEX NEGATIVE (Negative); URINE PROTEIN NEGATIVE (Negative); URINE SPECIFIC GRAVITY 1.025 (1.005-1.030); URINE UROBILINOGEN 0.2 E.U./dl (0.2-1.0)
--- NOTE | 2019-02-26 15:16 | NUR ---
RECEIVED REPORT FROM HITESH RN IN ER AT 1240 OF EXPECTED ADMISSION- DX: PNEUMONIA , CHEST PAIN- PT ARRIVED TO ROOM 220 VIA CART AT 1325- SBA TO BED, VS 98.0 22 141/79 96 94% ON 2L VIA NC- ABG RESULTS NOTED AND ALLED TO , ORDERS OBTAIEND FOR BIPAP- PT THEN TAKEN TO SHOWER R/T STOOL NOTED TO BLE AND ODOR, PT NOTED TO BE UNKEPT AT TIME OF ADMISSION- NATURAL RESOURCE ECONOMIST PLACED ORDERED, ST NOTED- PT A&O X4- CONTINENT VS INCONTINENT OF B/B- UA OBTAINED AT TIME OF ADMISSION AND SENT TO LAB FOR TESTING-DIMINISHDE LUNG SOUNDS NOTED- DYSPNEA NOTED- ABD OBESE/SOFT/NON-TENDER, BS X4 QUADS- BM NOTED THIS AM- REDENED YEAST RASH NOTED TO TESFAYE INNER THIGHS, PANNUS FOLDS AND UNDER LEFT BREAST; ORDER OBTAINED PER FOR NYSTAIN CREAM BID TO BE APPLIED- WEIGHT NOTED AT 429.2, BARIATIC BED ORDERED-PT NOTED TO SCREEN POSITIVE FOR SEPSIS AT TIME OF ADMISSION, NOTIFED, PT REPORTED TO ALREADY BE ON ABT, THAT SHE RECEIVED IN ER WITH NO NEED FOR IVF AT THIS TIME- RLE NOTED WITH PSORIASIS- INR NOTED AT 4.2, COUMADIN CURRENTLY ON HOLD- UPPER EXTEMITY TEMORS NOTED- CALL LIGHT AND PERSONAL BELONGINGS WITH IN REACH- HOURLY ROUNDS IN PLACE R/T SAFETY/NEEDS- ALL NEEDS MET AT THIS TIME-WCTM
[2019-02-26 16:11] VITALS: BP 145/64
--- NOTE | 2019-02-26 16:14 | EKG ---
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: : 1950 Requested By: Randolph Stern Order Number: [id number] MD: David Albert Measurements Intervals [place] Rate: 106 P: 48 ID: 150 QRS: 21 QRSD: 86 T: 233 QT: 438 QTc: 582 Interpretive Statements Sinus tachycardia Low voltage, precordial leads Nonspecific T abnormalities, diffuse leads Prolonged QT interval Baseline wander in lead(s) V1 Compared to ECG 11/26/2018 08:07:35 Low QRS voltage now present T-wave abnormality now present Prolonged QT interval now present sinus rate has increased Electronically Signed On 02-26-2019 16:14:40 CDT by David Albert [email or web address] <ELECTRONICALLY SIGNED> By: David Albert MD, [facility] 02/26/19 1614 1036 1036 David Albert MD, [facility] /EPI
[2019-02-26 20:00] VITALS: BP 113/39
[2019-02-27] VITALS: BP 132/69
[2019-02-27 04:00] VITALS: BP 110/59
[2019-02-27 04:31] LABS: ABSOLUTE BASOPHILS 0.1 thou/uL (0.0-0.2); ABSOLUTE EOSINOPHILS 0.1 thou/uL (0.0-0.7); ABSOLUTE LYMPHOCYTES 1.9 thou/uL (0.8-5.3); ABSOLUTE MONOCYTES 0.5 thou/uL (0.0-1.2); ABSOLUTE NEUTROPHILS 3.3 thou/uL (1.6-8.1); EOSINOPHILS 1.3 %; HEMATOCRIT 37.4 % (37.0-47.0); HEMOGLOBIN 12.1 gm/dL (12.0-15.0); LYMPHOCYTES 32.3 %; MCH 27.2 pg (26.0-34.0); MCHC 32.3 g/dL (28.0-37.0); MCV 83.9 fL (80.0-100.0); MONOCYTES 8.6 %; MPV 8.9 fl. (7.2-11.1); NUCLEATED RBCS 0 /100WBC; PLATELET COUNT* 154 thou/uL (150-400); POLYS 56.8 %; RBC 4.45 mil/uL (4.20-5.00); RDW-CV 16.1 % (10.5-14.5); WBC 5.7 thou/uL (4.0-11.0)
[2019-02-27 04:33] LABS: INR 4.3; PROTIME 41.4 Seconds (9.20-11.50)
[2019-02-27 04:39] LABS: CALCIUM 8.3 mg/dL (8.5-10.1); CREATININE 0.7 mg/dL (0.6-1.3); POTASSIUM 3.4 mmol/L (3.5-5.1)
--- NOTE | 2019-02-27 05:33 | NUR ---
ASSUMED PATIENT CARE AT 1900. PATIENT ALERT AND ORIENTED TIMES FOUR, CAN BE CONFUSED AT TIMES. BLOOD GLUCOSE RAN LOW, D50 GIVEN AND INSULIN HELD. NO COMPLAINTS OF PAIN OR DISCOMFORT NOTED. FLOORING MECHANIC AND HOURLY ROUNDING COMPLETED CHARTED.
--- NOTE | 2019-02-27 05:36 | NUR ---
ASSUMED PATIENT CARE AT 1900. PATIENT ALERT AND ORIENTED TIMES FOUR. UP WITH ONE TO THE RESTROOM. BIPAP COMPLIANT THROUGH THE NIGHT. COMPLAINTS OF PAIN NOTED, ORAL MEDICATIONS GIVEN. NYSTATIN APPLIED TO ALL AREAS OF EXCORIATION. MEDICAL INSURANCE CLERK AND HOURLY ROUNDING COMPLETED CHARTED.
[2019-02-27 07:59] VITALS: BP 135/63
--- NOTE | 2019-02-27 09:22 | NUR ---
ASSUMED CARE OF PT THIS AM AROUND 0715- STULL HEWER IN PLACE ORDERED, TRACING SR- UPON ASSESSMENT PT NOTED TO BE RESTING ON SIDE OF BED- PT A&O X4-CONTINENT OF BOWEL AND BLADDER- SBA WITH TRANSFERS FOR SAFETY-DIMINISHED LUNG SOUNDS NOTED, DYSPNEA NOTED ON EXERTION- VSS, O2 SAT 95% ON 2L VIA NC, BIPAP PRN AND AT HS- ABD OBESE/SOFT/NON-TENDER, BS X4 QUADS- LAST BM NOTED 02/26/19-GOOD PO INTAKE NOTED THIS AM WITH BREAKFAST, BS MONITORED ORDERED AND CONTROLLED PER ORAL MEDICATIONS- NYSTATIN TO ABD PANNUS/INNER THIGHS/LEFT BREAST INDICATED- IV NOTED TO LEFT AC INTACT, IVF ABT GIVEN THIS AM PRESCIBED- +1 BLE EDEMA NOTED- CALL LIGHT AND PERSONAL BELONGINGS WITH IN REACH- HOURLY ROUNDS INPLACE R/T SAFETY/NEEDS- ALL NEEDS MET AT THIS TIME-WCTM
--- NOTE | 2019-02-27 09:37 | NUR ---
Pt is A&O. Resides at home alone. Independent. Pt has a cleaning lady that comes in once a week for 2 hrs through the [place], she uses the company [employer] out of [place]. Pt wears home o2 PRN and sleeps with a CPAP. No hx of HH. Hx of skilled at [facility]. Pt stated that she has a limited support sx, her sister and her just had an argument so aren't speaking, but states that she has a friend name, Michael, that checks on her regularly. Pt's goal is to return home, may be open to HH if necessary. Following.
[2019-02-27 12:18] VITALS: BP 145/61
[2019-02-27 16:00] VITALS: BP 128/76
--- NOTE | 2019-02-27 16:49 | NUR ---
PT KOLBYENLTY RESTING IN BED, BIPAP IN USE- BYPRODUCTS PUMP OPERATOR IN PLACE ORDERED, TRACING SR/ST- IV TO LEFT AC INTACT AND SL- GOOD PO INTAKE NOTED THIS SHIFT, BS MONITORED ORDERED WITH ORAL MEDICATIONS PRESCIBED- PRN HYDROCODONE X1 THIS SHIFT FOR C/O BACK PAIN AT 1420- PT REPORTS MEDICATION TO BE EFFECTIVE- PT MAKES NEEDS KNOWN- ALL NEEDS MET AT THIS TIME-WCTM
[2019-02-27 18:46] LABS: MAGNESIUM 1.7 mg/dL (1.8-2.4); POTASSIUM 4.5 mmol/L (3.5-5.1)
[2019-02-27 20:00] VITALS: BP 123/85
[2019-02-28] VITALS (8 sets, daily range): BP systolic 120–141; BP diastolic 42–80
--- NOTE | 2019-02-28 03:57 | NUR ---
ASSUMED PT CARE AT APPROX 1930. PT IS AWAKE AND ORIENTED X4. VSS ON 2L OF O2/NC. NO DESATURATIONS NOTED. WORKERS COMPENSATION CLAIMS ANALYST IN PLACE TRACING SR. ASSESSMENT DONE AND CHARTED. PT IS ON BIPAP @HS. PT C/O BACK PAIN RELIEVED BY PAIN MEDS GIVEN PER JUL. MAGNESIUM REPLETION DONE. PT IS ABLE TO SLEEP MOST OF THE NIGHT. CALL LIGHT WITHIN REACH. HOURLY ROUNDING DONE FOR PT SAFETY. FALL PRECAUTIONS IN PLACE.
[2019-02-28 04:26] LABS: ABSOLUTE BASOPHILS 0.1 thou/uL (0.0-0.2); ABSOLUTE LYMPHOCYTES 1.1 thou/uL (0.8-5.3); ABSOLUTE MONOCYTES 0.4 thou/uL (0.0-1.2); ABSOLUTE NEUTROPHILS 4.6 thou/uL (1.6-8.1); BASOPHILS 0.8 %; EOSINOPHILS 0.7 %; HEMATOCRIT 38.8 % (37.0-47.0); HEMOGLOBIN 12.6 gm/dL (12.0-15.0); LYMPHOCYTES 18.2 %; MCH 27.5 pg (26.0-34.0); MCHC 32.5 g/dL (28.0-37.0); MCV 84.6 fL (80.0-100.0); MONOCYTES 6.7 %; MPV 9.3 fl. (7.2-11.1); NUCLEATED RBCS 0 /100WBC; PLATELET COUNT* 179 thou/uL (150-400); POLYS 73.6 %; RBC 4.59 mil/uL (4.20-5.00); WBC 6.3 thou/uL (4.0-11.0)
[2019-02-28 04:40] LABS: PROTIME 26.6 Seconds (9.20-11.50)
[2019-02-28 04:48] LABS: CALCIUM 8.2 mg/dL (8.5-10.1); CREATININE 0.7 mg/dL (0.6-1.3); POTASSIUM 4.3 mmol/L (3.5-5.1)
[2019-02-28 04:58] LABS: INR 2.7
--- NOTE | 2019-02-28 09:29 | NUR ---
ASSUMED CARE OF PT THIS AM AROUND 0715- HYDRATOR OPERATOR IN PLACE ORDERED, TRACING SR- UPON ASSESSMENT PT NOTED TO BE RESTING IN BED- PT A&O X4- CONTINENT OF BOWEL AND BLADDER- SBA WITH TRANSFERS FOR SAFETY- DIMINISHED LUNG SOUNDS NOTED- DYSPNEA NOTED ON EXERTION- VSS, O2 SAT 97% ON 2L VIA NC; BIPAP PRN AND AT HS- ABD OBESE/SOFT/NON-TENDER, BS X4 QUADS- LAST BM REPORTED 02/27/19- IV NOTED TO LEFT AC INTACT, IV ABT GIVEN THIS AM PRESCIBED-PT UP TO BED SIDE RECLINER THIS AM WITH BREAKFAST, GOOD PO INTAKE NOTED- CHEST X-RAY COMPLETED THIS AM WITH RESULTS NOTED IN MEDITECH-NYSTAIN TO ABD PANNUS/INNER THIGHS/LEFT BREAST ORDERED THIS AM-CALL LIGHT AND PERSONAL BELONGINGS WITH IN REACH- PT MAKES NEEDS KNOWN- ALL NEEDS MET AT THIS TIME-WCTM
[2019-02-28 15:12] LABS: ABSOLUTE BASOPHILS 0.1 thou/uL (0.0-0.2); ABSOLUTE EOSINOPHILS 0.1 thou/uL (0.0-0.7); ABSOLUTE LYMPHOCYTES 2.2 thou/uL (0.8-5.3); ABSOLUTE MONOCYTES 0.9 thou/uL (0.0-1.2); ABSOLUTE NEUTROPHILS 4.5 thou/uL (1.6-8.1); BASOPHILS 1.1 %; EOSINOPHILS 0.9 %; HEMATOCRIT 40.3 % (37.0-47.0); HEMOGLOBIN 12.9 gm/dL (12.0-15.0); LYMPHOCYTES 28.4 %; MCH 27.5 pg (26.0-34.0); MCHC 31.9 g/dL (28.0-37.0); MCV 86.3 fL (80.0-100.0); MPV 9.8 fl. (7.2-11.1); NUCLEATED RBCS 0 /100WBC; PLATELET COUNT* 129 thou/uL (150-400); POLYS 58.6 %; RBC 4.67 mil/uL (4.20-5.00); RDW-CV 15.6 % (10.5-14.5); WBC 7.8 thou/uL (4.0-11.0)
--- NOTE | 2019-02-28 16:24 | NUR ---
PT CURRENTLY RESTING IN BED, BIPAP IN PLACE- BRAND ANALYST IN PLACE ORDERED, TRACING SR-IV NOTED TO LEFT AC INTACT AND SL- PT UP TO BED SIDE CHAIR WITH MEALS, GOOD PO INTAKE NOTED THIS SHIFT WITH MEALS- TYLENOL X1 THIS SHIFT AT 1524 FOR C/O HEADACHE, PT REPORTS MEDICATION TO BE EFFECTIVE- BS MONITORED ORDERED, SCHEDULED PO MEDICATIONS AND SSI PRESCIBED- CALL LIGHT AND PERSONAL BELONGINGS WITH IN REACH- PT MAKES NEEDS KNOWN- ALL NEEDS MET AT THIS TIME-WCTM
[2019-03-01] VITALS: BP 148/76
[2019-03-01 04:00] VITALS: BP 133/68
[2019-03-01 05:14] LABS: ABSOLUTE EOSINOPHILS 0.1 thou/uL (0.0-0.7); ABSOLUTE LYMPHOCYTES 1.5 thou/uL (0.8-5.3); ABSOLUTE MONOCYTES 0.5 thou/uL (0.0-1.2); ABSOLUTE NEUTROPHILS 3.2 thou/uL (1.6-8.1); BASOPHILS 0.8 %; EOSINOPHILS 1.5 %; HEMATOCRIT 36.3 % (37.0-47.0); HEMOGLOBIN 11.7 gm/dL (12.0-15.0); LYMPHOCYTES 28.5 %; MCH 27.1 pg (26.0-34.0); MCHC 32.2 g/dL (28.0-37.0); MCV 84.1 fL (80.0-100.0); MONOCYTES 9.2 %; MPV 9.3 fl. (7.2-11.1); NUCLEATED RBCS 0 /100WBC; PLATELET COUNT* 166 thou/uL (150-400); RBC 4.32 mil/uL (4.20-5.00); RDW-CV 15.6 % (10.5-14.5); WBC 5.3 thou/uL (4.0-11.0)
[2019-03-01 05:20] LABS: INR 1.6; PROTIME 16.1 Seconds (9.20-11.50)
[2019-03-01 05:29] LABS: CALCIUM 8.8 mg/dL (8.5-10.1); CREATININE 0.7 mg/dL (0.6-1.3); MAGNESIUM 1.9 mg/dL (1.8-2.4); POTASSIUM 4.1 mmol/L (3.5-5.1)
--- NOTE | 2019-03-01 07:14 | NUR ---
Pt on BIPAP overnight. Reports she rested well. Denies pain. VSS. Will continue to monitor.
[2019-03-01 08:00] VITALS: BP 126/59
[2019-03-01] MEDS ORDERED: DOXYCYCLINE 10100 M1 PO (09:52)
[2019-03-01 09:53] VITALS: BP 126/59
--- NOTE | 2019-03-02 11:00 | EKG ---
[place] [address] ELECTROCARDIOGRAM REPORT Name: CURTIS MICHAELNDA WASHINGTON Room: [address] DIS IN M.R.#: [id number] Admission: 02/26/19 Attend Phys: Bradford Youngblood MD Discharge: 03/01/19 Date of : 54 Report #: [id number] THIS REPORT FOR: //name// [facility] Test Date: 2019-02-27 Test Time: 17:39:09 Pat Name: ARMANDO MICHAEL Department: Room: [address] Gender: F Worm Sorter: BJ : 1950 Requested By: Randolph Stern Order Number: [id number] Hebert MD: Bob Castillo Measurements Intervals [place] Rate: 84 P: 19 [place]: 169 QRS: 27 QRSD: 60 T: QT: 522 QTc: 618 Interpretive Statements Sinus rhythm Atrial premature complex Low voltage, precordial leads Borderline T abnormalities, anterior leads Prolonged QT interval Compared to ECG 02/26/2019 10:36:26 Atrial premature complex(es) now present Sinus tachycardia no longer present T-wave abnormality still present Electronically Signed On 03-02-2019 11:00:10 CDT by Bob Castillo [email or web address] <ELECTRONICALLY SIGNED> By: Bob Castillo MD, FACC 03/02/19 1100 1739 173 Bob Castillo MD, FAC /EPI
== END 2019-03-01 11:00 | disposition home or self-care (01) | DRG 177 ==
LOC: M.ERS 09:42 → M.TBA-ER 11:20 → M.2W 11:20
PROVIDERS: Emergency Medicine; Internal Medicine; ADMIT Internal Medicine
PROC: 5A09357 Assistance with Respiratory Ventilation, Less than 24 Consecutive Hours, Continuous Positive Airway Pressure (ICD-10-PCS; principal; 2019-02-26)
PROC: 3E0234Z Introduction of Serum, Toxoid and Vaccine into Muscle, Percutaneous Approach (ICD-10-PCS; 2019-02-27)
PROC: 5A09357 Assistance with Respiratory Ventilation, Less than 24 Consecutive Hours, Continuous Positive Airway Pressure (ICD-10-PCS; 2019-02-27)
PROC: 5A09357 Assistance with Respiratory Ventilation, Less than 24 Consecutive Hours, Continuous Positive Airway Pressure (ICD-10-PCS; 2019-02-28)
DX: J15.6 Pneumonia due to other Gram-negative bacteria (principal); J96.01 Acute respiratory failure with hypoxia; E66.2 Morbid (severe) obesity with alveolar hypoventilation; E87.2 Acidosis; Z68.45 Body mass index [BMI] 70 or greater, adult; E03.9 Hypothyroidism, unspecified; F32.9 Major depressive disorder, single episode, unspecified; F41.1 Generalized anxiety disorder; E11.9 Type 2 diabetes mellitus without complications; Z96.653 Presence of artificial knee joint, bilateral; M19.90 Unspecified osteoarthritis, unspecified site; I50.9 Heart failure, unspecified; Z90.710 Acquired absence of both cervix and uterus; Z79.899 Other long term (current) drug therapy; Z79.84 Long term (current) use of oral hypoglycemic drugs; Z79.01 Long term (current) use of anticoagulants; Z88.0 Allergy status to penicillin; Z88.8 Allergy status to other drugs, medicaments and biological substances; Z87.891 Personal history of nicotine dependence; Z83.3 Family history of diabetes mellitus; Z80.8 Family history of malignant neoplasm of other organs or systems; Z86.718 Personal history of other venous thrombosis and embolism; Z23 Encounter for immunization

== ENCOUNTER 2019-06-05 17:45 | Emergency (ER) | payer MEDICARE, OTHER, MEDICAID ==
[~2019-06-05] VITALS: Ht 165.1 cm; Wt 2.1 kg
[~2019-06-05 17:45] MED LIST changes: +DOXYCYCLINE 10100 M1 PO
[2019-06-05 18:15] LABS: ABSOLUTE EOSINOPHILS 0.1 thou/uL (0.0-0.7); ABSOLUTE LYMPHOCYTES 1.9 thou/uL (0.8-5.3); ABSOLUTE MONOCYTES 0.5 thou/uL (0.0-1.2); ABSOLUTE NEUTROPHILS 4.9 thou/uL (1.6-8.1); BASOPHILS 0.3 %; EOSINOPHILS 0.7 %; HEMATOCRIT 40.1 % (37.0-47.0); HEMOGLOBIN 13.2 gm/dL (12.0-15.0); MCH 26.6 pg (26.0-34.0); MCHC 32.9 g/dL (28.0-37.0); MCV 81.1 fL (80.0-100.0); MONOCYTES 6.3 %; NUCLEATED RBCS 0 /100WBC; PLATELET COUNT* 197 thou/uL (150-400); POLYS 66.7 %; RBC 4.95 mil/uL (4.20-5.00); RDW-CV 15.6 % (10.5-14.5); WBC 7.3 thou/uL (4.0-11.0)
[2019-06-05 18:27] LABS: CALCIUM 8.4 mg/dL (8.5-10.1); POTASSIUM 4.4 mmol/L (3.5-5.1)
[2019-06-05 18:36] LABS: INR 2.9; PROTIME 28.5 Seconds (9.20-11.50)
[2019-06-05 18:38] LABS: ALBUMIN 3.2 g/dL (3.4-5.0); TOTAL BILIRUBIN 0.3 mg/dL (<0.1-1.0)
[2019-06-05 19:31] LABS: INFLUENZA A ANTIGEN Negative (Negative); INFLUENZA B ANTIGEN Negative (Negative)
[2019-06-05] MEDS ORDERED: CEFDINIR300 MG PO (20:38)
[2019-06-05] MEDS ORDERED: DIAZEPAM 5 MG5 M1 PO (20:38)
[2019-06-05 20:45] VITALS: BP 117/86
--- NOTE | 2019-06-08 14:09 | EKG ---
[place] [address] ELECTROCARDIOGRAM REPORT Name: MARCOARMANDO WEI Room: [facility]#: [id number] Admission: 06/05/19 Attend Phys: Discharge: 06/05/19 Date of : 54 Report #: [id number] THIS REPORT FOR: //name// [facility] ED Test Date: 2019-06-05 Test Time: 18:00:51 Pat Name: ARMANDO MICHAEL Department: Room: Gender: F Air Traffic Systems Technician: : 1950 Requested By: Oscar Caballero Order Number: [id number] MD: Bob Castillo Measurements Intervals [place] Rate: 72 P: 0 IA: 65 QRS: 23 QRSD: 91 T: -33 QT: 462 QTc: 506 Interpretive Statements Sinus rhythm artifact noted Short IA interval Low voltage, precordial leads Borderline repolarization abnormality Prolonged QT interval Compared to ECG 02/27/2019 17:39:09 Atrial premature complex(es) no longer present Electronically Signed On 06-08-2019 14:08:35 PAPER MACHINE TENDER by Bob Castillo [email or web address] <ELECTRONICALLY SIGNED> By: Bob Castillo MD, FACC 06/08/19 1408 1800 1800 Bob Castillo MD, [facility] /EPI
== END 2019-06-05 20:45 | disposition home or self-care (01) ==
LOC: M.ERS 17:45
PROVIDERS: Emergency Medicine
DX: R06.02 Shortness of breath (principal); E03.9 Hypothyroidism, unspecified; F41.9 Anxiety disorder, unspecified; E11.9 Type 2 diabetes mellitus without complications; Z96.653 Presence of artificial knee joint, bilateral; Z90.710 Acquired absence of both cervix and uterus; Z86.14 Personal history of Methicillin resistant Staphylococcus aureus infection; Z88.0 Allergy status to penicillin; Z88.8 Allergy status to other drugs, medicaments and biological substances; Z87.891 Personal history of nicotine dependence

== ENCOUNTER 2019-07-21 08:38 | Observation (INO) | payer OTHER, MEDICAID ==
[~2019-07-21] VITALS: Ht 165.1 cm; Wt 188.7 kg
[~2019-07-21 08:38] MED LIST changes: +CEFDINIR300 MG PO
[2019-07-21 08:43] VITALS: BP 137/74
[2019-07-21 09:19] LABS: ABSOLUTE EOSINOPHILS 0.1 thou/uL (0.0-0.7); ABSOLUTE LYMPHOCYTES 1.6 thou/uL (0.8-5.3); ABSOLUTE MONOCYTES 0.5 thou/uL (0.0-1.2); ABSOLUTE NEUTROPHILS 4.4 thou/uL (1.6-8.1); BASOPHILS 0.4 %; EOSINOPHILS 1.1 %; HEMATOCRIT 41.5 % (37.0-47.0); HEMOGLOBIN 13.5 gm/dL (12.0-15.0); LYMPHOCYTES 24.7 %; MCH 26.4 pg (26.0-34.0); MCHC 32.5 g/dL (28.0-37.0); MCV 81.1 fL (80.0-100.0); MONOCYTES 7.5 %; MPV 9.3 fl. (7.2-11.1); NUCLEATED RBCS 0 /100WBC; PLATELET COUNT* 173 thou/uL (150-400); POLYS 66.3 %; RBC 5.12 mil/uL (4.20-5.00); WBC 6.6 thou/uL (4.0-11.0)
[2019-07-21 09:28] LABS: APTT 30.1 Seconds (25.0-31.3); INR 1.7; PROTIME 17.2 Seconds (9.20-11.50)
[2019-07-21 09:30] LABS: CALCIUM 8.3 mg/dL (8.5-10.1); CREATININE 0.8 mg/dL (0.6-1.3); POTASSIUM 5.1 mmol/L (3.5-5.1)
[2019-07-21 09:41] LABS: ALBUMIN 3.1 g/dL (3.4-5.0); TOTAL BILIRUBIN 0.7 mg/dL (<0.1-1.0); TOTAL PROTEIN 6.7 g/dL (6.4-8.2)
--- NOTE | 2019-07-21 11:13 | EKG ---
[place] [address] ELECTROCARDIOGRAM REPORT Name: ARMANDO MICHAEL Room: [place] [address] ADM IN [facility].#: [id number] Admission: 07/21/19 Attend Phys: Bradford Youngblood, Discharge: Date of : 54 Date of Service: 07/21/19 0844 Report #: [id number] THIS REPORT FOR: //name// [facility] ED Test Date: 2019-07-21 Test Time: 08:44:49 Pat Name: ARMANDO MICHAEL Department: Room: [facility] Gender: F Bulk Plant Operator: SHANKAR : 1950 Requested By: Chris Srinivasan Order Number: [id number] MD: Bob Castillo Measurements Intervals [place] Rate: 69 P: 27 GA: 164 QRS: 30 QRSD: 74 T: 244 QT: 558 QTc: 598 Interpretive Statements Sinus rhythm Low voltage, precordial leads Borderline T abnormalities, anterior leads Prolonged QT interval Compared to ECG 06/05/2019 18:00:51 no change Electronically Signed On 07-21-2019 11:12:04 PLANT OPERATIONS WORKER by Bob Castillo [email or web address] <ELECTRONICALLY SIGNED> By: Bob Castillo MD, FAC 07/21/19 1112 0844 0844 Bob Castillo MD, FAC /EPI
[2019-07-21 13:51] VITALS: BP 151/78
[2019-07-21 17:35] VITALS: BP 125/61
--- NOTE | 2019-07-21 18:57 | NUR ---
CHARMAINE RESTING IN BED. VITAL SIGNS STABLE. UP AD RADHA IN ROOM. CHARMAINE IS EXPECTING DC TOMORROW. OBIE GAINES COMPLETED FOR CHARMAINE SAFETY
[2019-07-21 20:00] VITALS: BP 116/64
[2019-07-22] VITALS: BP 110/67
[2019-07-22 04:18] LABS: HEMATOCRIT 41.5 % (37.0-47.0); HEMOGLOBIN 13.6 gm/dL (12.0-15.0); MCH 26.5 pg (26.0-34.0); MCHC 32.8 g/dL (28.0-37.0); MCV 80.7 fL (80.0-100.0); MPV 9.3 fl. (7.2-11.1); NUCLEATED RBCS 0 /100WBC; PLATELET COUNT* 183 thou/uL (150-400); RBC 5.14 mil/uL (4.20-5.00); RDW-CV 15.9 % (10.5-14.5); WBC 7.9 thou/uL (4.0-11.0)
[2019-07-22 04:25] VITALS: BP 126/60
[2019-07-22 04:44] LABS: ANION GAP 8 mmol/L (7-16); BUN 21 mg/dL (7-18); CALCIUM 8.7 mg/dL (8.5-10.1); CHLORIDE 104 mmol/L (98-107); CO2 29 mmol/L (21-32); CREATININE 0.9 mg/dL (0.6-1.3); GLUCOSE 183 mg/dL (70-99); NT-PRO BRAIN NAT PEPTIDE 25 pg/mL (<300); POTASSIUM 4.4 mmol/L (3.5-5.1); SODIUM 141 mmol/L (136-145); TROPONIN-I LEVEL <0.06 ng/mL (<0.06)
[2019-07-22 05:19] LABS: ABSOLUTE LYMPHOCYTES 0.5 thou/uL (0.8-5.3); ABSOLUTE MONOCYTES 0.1 thou/uL (0.0-1.2); ABSOLUTE NEUTROPHILS 7.3 thou/uL (1.6-8.1); ANISOCYTOSIS 1+; PLATELET ESTIMATE ADEQUATE; POIKILOCYTOSIS 1+
[2019-07-22] MEDS ORDERED: VENTOLIN HFA 1818 GM INH (10:36)
[2019-07-22] MEDS ORDERED: LASIX 40 MG TAB40 MG PO (10:36)
--- NOTE | 2019-07-22 11:00 | NUR ---
MET WITH PT TO DISCUSS HOME SITUATION/DC PLANNING. PT LIVES ALONE. SHE USES CANE AND CPAP. STATES SHE IS ABLE TO DRIVE AND MANAGE HER OWN AFFAIRS. HAS SOMEONE WHO CLEANS FOR HER. DENIES ANY DC NEEDS, TO GO HOME LATER TODAY
[2019-07-22 12:13] VITALS: BP 129/61
[2019-07-22 15:27] VITALS: BP 129/61
== END 2019-07-22 16:24 | disposition home or self-care (01) ==
LOC: M.ERS 08:38 → M.TBA-ER 10:13 → M.2W 10:13
PROVIDERS: Family Medicine; ADMIT Internal Medicine
DX: R06.03 Acute respiratory distress (principal); E66.01 Morbid (severe) obesity due to excess calories; E03.9 Hypothyroidism, unspecified; G47.33 Obstructive sleep apnea (adult) (pediatric); E66.2 Morbid (severe) obesity with alveolar hypoventilation; F41.9 Anxiety disorder, unspecified; F31.9 Bipolar disorder, unspecified; Z79.01 Long term (current) use of anticoagulants; I89.0 Lymphedema, not elsewhere classified

== ENCOUNTER 2019-09-02 10:18 | Inpatient (IN) | payer OTHER, MEDICAID ==
[~2019-09-02] VITALS: Ht 165.1 cm; Wt 186.4 kg
[~2019-09-02 10:18] MED LIST changes: +LASIX 40 MG TAB40 MG PO
[2019-09-02 10:21] VITALS: BP 130/68
[2019-09-02 10:56] LABS: ABSOLUTE BASOPHILS 0.1 thou/uL (0.0-0.2); ABSOLUTE EOSINOPHILS 0.1 thou/uL (0.0-0.7); ABSOLUTE LYMPHOCYTES 1.4 thou/uL (0.8-5.3); ABSOLUTE MONOCYTES 0.5 thou/uL (0.0-1.2); BASOPHILS 1.1 %; HEMOGLOBIN 13.5 gm/dL (12.0-15.0); LYMPHOCYTES 20.3 %; MCH 26.1 pg (26.0-34.0); MCHC 32.1 g/dL (28.0-37.0); MCV 81.4 fL (80.0-100.0); MONOCYTES 6.8 %; MPV 9.6 fl. (7.2-11.1); NUCLEATED RBCS 0 /100WBC; PLATELET COUNT* 158 thou/uL (150-400); POLYS 70.8 %; RBC 5.15 mil/uL (4.20-5.00); RDW-CV 16.3 % (10.5-14.5)
[2019-09-02 11:05] LABS: CREATININE 0.9 mg/dL (0.6-1.3)
[2019-09-02 11:06] LABS: APTT 41.8 Seconds (25.0-31.3); INR 3.3; PROTIME 32.6 Seconds (9.20-11.50)
[2019-09-02 11:17] LABS: ALBUMIN 3.2 g/dL (3.4-5.0); TOTAL BILIRUBIN 0.4 mg/dL (<0.1-1.0); TOTAL PROTEIN 6.7 g/dL (6.4-8.2)
--- NOTE | 2019-09-02 13:11 | NUR ---
REGULAR DIET LUNCH TRAY GIVEN TO THE PATIENT PER REQUEST.
--- NOTE | 2019-09-02 14:04 | NUR ---
CONTACTED 2W TO GIVE REPORT ON PT. WAS TOLD THE ACCEPTING NURSE IS STILL AT LUNCH.
[2019-09-02 14:33] VITALS: BP 133/76
--- NOTE | 2019-09-02 14:40 | NUR ---
THIS RN WALKED INTO PATIENT'S ROOM TO TAKE HER TO INPATIENT ROOM AND PT HAD JUST BEGUN ECHOCARDIOGRAM. PT WILL BE TAKEN TO ROOM #202 SOON ECHO HAS BEEN COMPLETED.
[2019-09-02 15:30] VITALS: BP 132/75
--- NOTE | 2019-09-02 15:58 | 2DMMODE ---
[place] [address] 2 D/M-MODE ECHOCARDIOGRAM Name: ARMANDO MICHAEL Room: [address] IN M.R.#: [id number] Admission: 09/02/19 Attend Phys: Bradford Youngblood, Discharge: Date of : 54 Date of Service: 09/02/19 1556 Report #: [id number] THIS REPORT FOR: cc: Andrew Kauffman MD, Bruce D. MD Holkins,David King MD [facility] ~ APPROVED REPORT Study performed: 09/02/2019 14:26:21 EXAM: Limited 2D Echocardiogram Patient Location: In-Patient Status: routine BSA: 2.73 HR: 63 bpm BP: 126/64 mmHg Rhythm: NSR Other Information Study Quality: Technically Limited Technically limited study due to body habitus, poor endocardial definition. Indications Dyspnea Echo Enhancing Agent Indication: Endocardial border delineation Agent(s) / Amount(s) Used: Optison 5 cc Left Ventricle The left ventricle is normal size. There is normal left ventricular wall thickness. The left ventricular systolic function is normal. The left ventricular ejection fraction is within the normal range. LVEF is 60-65%. This study is not technically sufficient to allow evaluation of the LV diastolic function. Right Ventricle Right ventricle is not well visualized. Atria Left atrium is not well visualized. Right atrium [place] [address] 2 D/M-MODE ECHOCARDIOGRAM Name: ARMANDO MICHAEL Room: [address] IN .R.#: [id number] Admission: 09/02/19 Attend Phys: Bradford Youngblood, Discharge: Date of : 54 Date of Service: 09/02/19 1556 Report #: [id number] Aortic Valve Aortic valve is not well visualized. Mitral Valve Mitral valve is not well visualized. Tricuspid Valve Tricuspid valve is not well visualized. Pulmonic Valve Pulmonic valve is not well visualized. Pericardium There is no pericardial effusion. <Conclusion> The left ventricle is normal size. There is normal left ventricular wall thickness. The left ventricular systolic function is normal. The left ventricular ejection fraction is within the normal range. LVEF is 60-65%. Right ventricle is not well visualized. Left atrium is not well visualized. Aortic valve is not well visualized. Mitral valve is not well visualized. There is no pericardial effusion. <ELECTRONICALLY SIGNED> By: David Albert MD, [facility] 09/02/19 1556 1556 1556 David Albert MD, FACC /INF
--- NOTE | 2019-09-02 16:52 | EKG ---
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: : 1950 Requested By: Chris Srinivasan Order Number: [id number] MD: David Albert Measurements Intervals [place] Rate: 63 P: 0 GA: 140 QRS: 34 QRSD: 144 T: 26 QT: 419 QTc: 429 Interpretive Statements sinus rhythm brief sinus pause Minor IVCD Baseline wander in lead(s) I,II,aVR,aVF,V1 Compared to ECG 07/21/2019 08:44:49 T-wave abnormality no longer present Prolonged QT interval no longer present Electronically Signed On 09-02-2019 16:51:14 CDT by David Albert [email or web address] <ELECTRONICALLY SIGNED> By: David Albert MD, [facility] 09/02/19 1651 1024 1024 David Albert MD, [facility] /EPI
[2019-09-02 20:00] VITALS: BP 98/65
[2019-09-03 00:44] VITALS: BP 125/54
[2019-09-03 04:10] LABS: ABSOLUTE LYMPHOCYTES 1.1 thou/uL (0.8-5.3); ABSOLUTE MONOCYTES 0.1 thou/uL (0.0-1.2); ABSOLUTE NEUTROPHILS 6.8 thou/uL (1.6-8.1); BASOPHILS 0.2 %; HEMATOCRIT 41.9 % (37.0-47.0); HEMOGLOBIN 13.6 gm/dL (12.0-15.0); LYMPHOCYTES 14.2 %; MCHC 32.4 g/dL (28.0-37.0); MCV 80.3 fL (80.0-100.0); MONOCYTES 1.3 %; MPV 10.2 fl. (7.2-11.1); NUCLEATED RBCS 0 /100WBC; PLATELET COUNT* 183 thou/uL (150-400); POLYS 84.3 %; RBC 5.21 mil/uL (4.20-5.00); RDW-CV 16.4 % (10.5-14.5); WBC 8.1 thou/uL (4.0-11.0)
[2019-09-03 04:21] LABS: CALCIUM 8.4 mg/dL (8.5-10.1); POTASSIUM 4.1 mmol/L (3.5-5.1)
[2019-09-03 06:10] LABS: INR 3.5; PROTIME 33.9 Seconds (9.20-11.50)
[2019-09-03 08:00] VITALS: BP 97/73
[2019-09-03 08:51] LABS: URINE BILIRUBIN NEGATIVE (Negative); URINE BLOOD NEGATIVE (Negative); URINE CLARITY CLEAR; URINE COLOR YELLOW; URINE GLUCOSE-RANDOM 3+ (Negative); URINE KETONES TRACE (Negative); URINE LEUKOCYTES-REFLEX NEGATIVE (Negative); URINE NITRITE-REFLEX NEGATIVE (Negative); URINE PROTEIN NEGATIVE (Negative); URINE SPECIFIC GRAVITY 1.025 (1.005-1.030); URINE UROBILINOGEN 0.2 E.U./dl (0.2-1.0)
--- NOTE | 2019-09-03 10:07 | NUR ---
SW called pt room and spoke with pt to complete initial assessment. SW reviewed information from pt admit to the hospital in July; pt said that she continues to live alone and does not have any other needs. Pt confident that she feels safe at home. Pt has cane and CPAP. SW to remain available to assist with safe dc planning if needs arise.
--- NOTE | 2019-09-03 11:32 | NUR ---
ASSUMED CARE OF PATIENT THIS AM AT 0730. PATIENT IS ALERT AND ORIENTED X 4. SHE DENIES PAIN THIS AM. PATIENT IS UP TO THE BATHROOM TO VOID. SOME INCONTINENCE NOTED. IV INFLITRATED THIS AM. UNABLE TO RESTART. INFUSION NURSE NOTIFIED AND IV PLACED. TELE SHOWS STABLE A FIB-FLUTTER. URINE SPECIMEN SENT TO LAB. PATIENT'S BLOOD SUGARS MONITORED. PATIENT IS RESTING WITHOUT COMPLAINT AT THIS TIME. PATIENT INSTRUCTED TO USE BSC FOR ACCURATE I&O. WILL CONTINUE TO MONITOR.
[2019-09-03 11:47] VITALS: BP 125/43
[2019-09-03 16:00] VITALS: BP 130/55
[2019-09-03 20:00] VITALS: BP 129/65
[2019-09-04] VITALS: BP 132/99
[2019-09-04 04:00] VITALS: BP 139/72
[2019-09-04 05:14] LABS: INR 4.2; PROTIME 40.7 Seconds (9.20-11.50)
--- NOTE | 2019-09-04 05:55 | NUR ---
ASSUMED PATIENT CARE AT 1900. ASSESSMENT COMPLETED CHARTED. PATIENT IS AFIB ON THE MONITOR. HOURLY ROUNDING IN PLACE FOR PATIENT SAFETY. CLWR.
[2019-09-04 07:45] VITALS: BP 132/79
[2019-09-04 12:00] VITALS: BP 128/65
[2019-09-04 16:00] VITALS: BP 115/87
[2019-09-04 20:00] VITALS: BP 132/77
[2019-09-05] VITALS: BP 142/43
[2019-09-05 04:00] VITALS: BP 126/54
[2019-09-05 04:58] LABS: ABSOLUTE MONOCYTES 0.2 thou/uL (0.0-1.2); BASOPHILS 0.2 %; HEMATOCRIT 41.5 % (37.0-47.0); HEMOGLOBIN 13.4 gm/dL (12.0-15.0); LYMPHOCYTES 12.6 %; MCHC 32.4 g/dL (28.0-37.0); MCV 80.5 fL (80.0-100.0); MONOCYTES 2.9 %; MPV 10.2 fl. (7.2-11.1); NUCLEATED RBCS 0 /100WBC; PLATELET COUNT* 175 thou/uL (150-400); POLYS 84.3 %; RBC 5.15 mil/uL (4.20-5.00); RDW-CV 16.2 % (10.5-14.5); WBC 8.3 thou/uL (4.0-11.0)
[2019-09-05 05:17] LABS: CREATININE 1.1 mg/dL (0.6-1.3); POTASSIUM 4.3 mmol/L (3.5-5.1)
--- NOTE | 2019-09-05 06:00 | NUR ---
PATIENT SLEPT PART OF THE NIGHT. IV REMAINS SALINE LOCKED. PATIENT WAS GIVEN PAIN MEDICINE TWICE FOR A HEADACHE. PATIENT REMAINS ON OXYGEN AT 2L PER NC. PATIENT COULD POSSIBLY DC HOME TODAY. WILL CONTINUE TO MONITOR.
[2019-09-05 08:00] VITALS: BP 150/92
--- NOTE | 2019-09-05 10:38 | NUR ---
Nutrition: Pt admitted with resp failure, COPD exac. H/o COPD, DM. BG 200s, albumin 3.2. CHO controlled diet ordered, eating well. Wt is up to 410# from 394#. RD has seen pt multiple times in past, given low sugar educ. Seen for high BMI. Pt will likely discharge today. No nutrition education provided today. Consider mild risk.
--- NOTE | 2019-09-05 11:11 | NUR ---
ASSUMED PT CARE AT 0730, PT SITTING ON SIDE OF BED, A&OX4, TRACING SB ON THE KISS MACHINE OPERATOR AND SATTING 100% ON 2L. PT C/O DIZZINESS W/ A HEADACHE, PRN VALIUM GIVEN. PT GOAL IS TO TITRATE O2 DOWN, PAIN AND DIZZINESS MANAGEMENT. AM ASSESSMENT CHARTED, MEDS PER JUL, WILL CONTINUE POC.
[2019-09-05 12:00] VITALS: BP 126/69
[2019-09-05 16:00] VITALS: BP 136/80
--- NOTE | 2019-09-05 17:14 | NUR ---
NO ACUTE CHANGES THROUGHOUT SHIFT, PT PROGRESSING TOWARDS GOALS, TITRATED TO RA AND SATTING 92-93%. PT STILL C/O PAIN AND DIZZINESS, MEDS GIVEN PER JUL. PT SHOWERED THIS AFTERNOON AND SAT UP IN RECLINER FOR MEALS. SLIDING SCALE INSULIN INCREASED TO MODERATE DOSE PER PROTOCOL. PT TO DC HOME TOMORROW. WILL CONTINUE POC.
[2019-09-06] VITALS: BP 110/50
[2019-09-06 04:00] VITALS: BP 110/54
[2019-09-06 05:11] LABS: ABSOLUTE MONOCYTES 0.8 thou/uL (0.0-1.2); BASOPHILS 0.1 %; EOSINOPHILS 0.2 %; HEMATOCRIT 40.2 % (37.0-47.0); HEMOGLOBIN 13.4 gm/dL (12.0-15.0); LYMPHOCYTES 25.8 %; MCH 26.5 pg (26.0-34.0); MCHC 33.2 g/dL (28.0-37.0); MCV 79.8 fL (80.0-100.0); MONOCYTES 9.8 %; NUCLEATED RBCS 0 /100WBC; PLATELET COUNT* 144 thou/uL (150-400); POLYS 64.1 %; RBC 5.04 mil/uL (4.20-5.00); RDW-CV 16.4 % (10.5-14.5); WBC 7.8 thou/uL (4.0-11.0)
[2019-09-06 05:32] LABS: CALCIUM 7.9 mg/dL (8.5-10.1); CREATININE 1.2 mg/dL (0.6-1.3)
[2019-09-06 05:41] LABS: POTASSIUM 3.3 mmol/L (3.5-5.1)
--- NOTE | 2019-09-06 06:24 | NUR ---
PATIENT SLEPT MOST OF THE NIGHT. IV REMAINS SALINE LOCKED. PATIENT WAS GIVEN PAIN MEDICINE ONCE FOR HEADACHE. PATIENT IS SUPPOSED TO DC HOME TODAY. WILL CONTINUE TO MONITOR.
[2019-09-06 07:45] VITALS: BP 107/72
--- NOTE | 2019-09-06 10:58 | NUR ---
ASSUMED PT CARE AT 0730, PT SITTING UP IN CHAIR, A&OX4, SATTING 99% ON RA, TRACING SR ON THE BOTTLE SORTER AND C/O BACK PAIN, PRN NORCO GIVEN W/ NO RELIEF. NON-PHARM PAIN MANAGEMENT INITIATED W/ PARTIAL RELIEF. PT'S K+ WAS 3.3, IS CURRENTLY BEING REPLACED PER E'LYTE PROTOCOL. PT GOAL IS TO DECREASE PAIN, REPLACE K+ AND DISCHARGE TO HOME TODAY. AM ASSESSMENT CHARTED, MEDS PER JUL, WILL CONTINUE POC.
[2019-09-06 11:14] VITALS: BP 107/72
[2019-09-06 11:22] LABS: INR 3.5; PROTIME 34.2 Seconds (9.20-11.50)
--- NOTE | 2019-09-06 14:01 | NUR ---
DISCHARGE ORDERS RECEIVED. DISCHARGE INSTRUCTIONS, CARE NOTES, AND F/U GIVE TO PT. PT COMMUNICATES UNDERSTANDING OF DC TEACHING. IV AND SWING RIDE OPERATOR REMOVED. K+ REPLACED PER Denita'LYTE PROTOCOL. PT DISCHARGE W/ ALL BELONGINGS AND PAPERWORK VIA WHEELCHAIR W/ NURSING STAFF TO PERSONAL VEHICLE.
== END 2019-09-06 14:02 | disposition home or self-care (01) | DRG 291 ==
LOC: M.ERS 10:18 → M.TBA-ER 11:08 → M.2W 11:08
PROVIDERS: Family Medicine; Internal Medicine; ADMIT Internal Medicine
DX: I50.33 Acute on chronic diastolic (congestive) heart failure (principal); J96.01 Acute respiratory failure with hypoxia; J44.1 Chronic obstructive pulmonary disease with (acute) exacerbation; E66.2 Morbid (severe) obesity with alveolar hypoventilation; Z68.44 Body mass index [BMI] 60.0-69.9, adult; K21.9 Gastro-esophageal reflux disease without esophagitis; E03.9 Hypothyroidism, unspecified; F41.9 Anxiety disorder, unspecified; E11.9 Type 2 diabetes mellitus without complications; F32.9 Major depressive disorder, single episode, unspecified; Z96.652 Presence of left artificial knee joint; Z96.653 Presence of artificial knee joint, bilateral; Z90.710 Acquired absence of both cervix and uterus; Z79.01 Long term (current) use of anticoagulants; Z79.84 Long term (current) use of oral hypoglycemic drugs; Z79.899 Other long term (current) drug therapy; Z88.0 Allergy status to penicillin; Z88.8 Allergy status to other drugs, medicaments and biological substances; Z87.891 Personal history of nicotine dependence; Z99.81 Dependence on supplemental oxygen

== ENCOUNTER 2019-09-18 09:57 | Inpatient (IN) | payer OTHER, MEDICAID ==
[~2019-09-18] VITALS: Ht 165.1 cm; Wt 186.0 kg
[2019-09-18 10:02] VITALS: BP 165/123
[2019-09-18 10:46] LABS: BE -1.2 mmol/L (-2 to +3); pH 7.304 (7.340-7.450)
[2019-09-18 10:47] LABS: ABSOLUTE BASOPHILS 0.1 thou/uL (0.0-0.2); ABSOLUTE EOSINOPHILS 0.1 thou/uL (0.0-0.7); ABSOLUTE LYMPHOCYTES 1.3 thou/uL (0.8-5.3); ABSOLUTE MONOCYTES 0.5 thou/uL (0.0-1.2); ABSOLUTE NEUTROPHILS 5.2 thou/uL (1.6-8.1); BASOPHILS 1.1 %; EOSINOPHILS 0.8 %; HEMATOCRIT 39.8 % (37.0-47.0); HEMOGLOBIN 12.8 gm/dL (12.0-15.0); LYMPHOCYTES 18.1 %; MCH 26.8 pg (26.0-34.0); MCHC 32.3 g/dL (28.0-37.0); MCV 83.1 fL (80.0-100.0); MONOCYTES 6.5 %; MPV 9.9 fl. (7.2-11.1); NUCLEATED RBCS 0 /100WBC; PLATELET COUNT* 142 thou/uL (150-400); POLYS 73.5 %; RBC 4.79 mil/uL (4.20-5.00); RDW-CV 16.9 % (10.5-14.5)
[2019-09-18 10:53] LABS: PCO2 53.3 mmHg (35.0-45.0); PO2 27.8 mmHg (75.0-100.0)
[2019-09-18 10:56] LABS: CALCIUM 8.2 mg/dL (8.5-10.1); POTASSIUM 4.1 mmol/L (3.5-5.1)
[2019-09-18 10:59] LABS: APTT 24.5 Seconds (25.0-31.3); PROTIME 10.7 Seconds (9.20-11.50)
[2019-09-18 11:07] LABS: ALBUMIN 3.1 g/dL (3.4-5.0); TOTAL BILIRUBIN 0.3 mg/dL (<0.1-1.0); TOTAL PROTEIN 6.5 g/dL (6.4-8.2)
[2019-09-18 11:18] LABS: BE -2.5 mmol/L (-2 to +3); PCO2 47.9 mmHg (35.0-45.0); pH 7.317 (7.340-7.450)
[2019-09-18 11:19] LABS: PO2 138.9 mmHg (75.0-100.0)
[2019-09-18 13:05] VITALS: BP 136/85
[2019-09-18 14:30] VITALS: BP 139/80
--- NOTE | 2019-09-18 14:30 | EKG ---
[place] [address] ELECTROCARDIOGRAM REPORT Name: ARMANDO MICHAEL Room: [place] [address] ADM IN .R.#: [id number] Admission: 09/18/19 Attend Phys: Milla Hampton Discharge: Date of : 54 Date of Service: 09/18/[address] 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: [place] : 1950 Requested By: Oscar Caballero Order Number: [id number] Hebert MD: David Albert Measurements Intervals [place] Rate: 69 P: 26 [place]: 55 QRS: 45 QRSD: 100 T: 91 QT: 667 QTc: 715 Interpretive Statements Sinus rhythm Low voltage, precordial leads Prolonged QT interval Baseline wander in lead(s) I,II,III,aVR,aVF,V1,V2,V3,V4,V5,V6 Compared to ECG 09/02/2019 10:24:3 Low QRS voltage now present Prolonged QT interval now present Intraventricular conduction delay no longer present Electronically Signed On 09-18-2019 14:28:50 CDT by David Albert [email or web address] <ELECTRONICALLY SIGNED> By: David Albert MD, [facility] 09/18/19 1428 1007 1007 David Albert MD, [facility] /EPI
--- NOTE | 2019-09-18 14:32 | EKG ---
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: DAVID OLIVA : 1950 Requested By: Oscar Caballero Order Number: [id number] MD: David Albert Measurements Intervals [place] Rate: 62 P: 28 CT: 189 QRS: 18 QRSD: 105 T: -26 QT: 412 QTc: 419 Interpretive Statements Sinus rhythm Low voltage, precordial leads Borderline T abnormalities, diffuse leads Compared to ECG 09/02/2019 10:24:38 Low QRS voltage now present T-wave abnormality now present Intraventricular conduction delay no longer present Electronically Signed On 09-18-2019 14:30:29 CDT by David Albert [email or web address] <ELECTRONICALLY SIGNED> By: David Albert MD, [facility] 09/18/19 1430 1107 1107 David Albert MD, [facility] /EPI
[2019-09-18 16:00] VITALS: BP 136/73
[2019-09-18 20:00] VITALS: BP 122/54
[2019-09-18 23:51] VITALS: BP 127/100
[2019-09-19] VITALS (8 sets, daily range): BP systolic 95–127; BP diastolic 44–89
[2019-09-19 04:56] LABS: HEMATOCRIT 37.8 % (37.0-47.0); HEMOGLOBIN 12.4 gm/dL (12.0-15.0); MCH 27.2 pg (26.0-34.0); MCHC 32.8 g/dL (28.0-37.0); MCV 82.9 fL (80.0-100.0); MPV 9.7 fl. (7.2-11.1); RBC 4.56 mil/uL (4.20-5.00); RDW-CV 16.7 % (10.5-14.5); WBC 6.9 thou/uL (4.0-11.0)
[2019-09-19 05:07] LABS: ALBUMIN 2.9 g/dL (3.4-5.0); CALCIUM 7.8 mg/dL (8.5-10.1); POTASSIUM 3.6 mmol/L (3.5-5.1); TOTAL BILIRUBIN 0.4 mg/dL (<0.1-1.0); TOTAL PROTEIN 5.9 g/dL (6.4-8.2)
[2019-09-19 05:09] LABS: INR 1.1; PROTIME 11.6 Seconds (9.20-11.50)
[2019-09-20] VITALS: BP 121/81
[2019-09-20 04:00] VITALS: BP 89/56
[2019-09-20 04:26] LABS: HEMATOCRIT 39.5 % (37.0-47.0); HEMOGLOBIN 13.2 gm/dL (12.0-15.0); MCH 27.4 pg (26.0-34.0); MCHC 33.3 g/dL (28.0-37.0); MCV 82.2 fL (80.0-100.0); MPV 9.6 fl. (7.2-11.1); RBC 4.81 mil/uL (4.20-5.00); RDW-CV 16.9 % (10.5-14.5)
[2019-09-20 04:50] LABS: CREATININE 1.1 mg/dL (0.6-1.3); MAGNESIUM 1.9 mg/dL (1.8-2.4); POTASSIUM 3.6 mmol/L (3.5-5.1)
[2019-09-20 08:00] VITALS: BP 127/81
[2019-09-20 08:27] LABS: URINE BILIRUBIN NEGATIVE (Negative); URINE BLOOD NEGATIVE (Negative); URINE CLARITY CLEAR; URINE COLOR YELLOW; URINE GLUCOSE-RANDOM 2+ (Negative); URINE KETONES NEGATIVE (Negative); URINE LEUKOCYTES 1+ (Negative); URINE NITRITE NEGATIVE (Negative); URINE PROTEIN NEGATIVE (Negative); URINE SPECIFIC GRAVITY 1.015 (1.005-1.030); URINE UROBILINOGEN 0.2 E.U./dl (0.2-1.0)
[2019-09-20 08:41] LABS: BACTERIA 1-9 Few /HPF (None Seen); CASTS None Seen /LPF (None Seen); CRYSTALS None Seen /LPF (None Seen); MUCUS None Seen strn/LPF (None Seen); SQUAMOUS 0-3 Few /LPF (0-3); URINE RBC 0-2 Rare /HPF (0-2); URINE WBC 0-5 Rare /HPF (0-5)
[2019-09-20 12:00] VITALS: BP 132/85
[2019-09-20] MEDS ORDERED: FLORASTOR250 MG PO (12:53)
[2019-09-20] MEDS ORDERED: CEFDINIR300 MG PO (12:54)
[2019-09-20 16:00] VITALS: BP 135/68
[2019-09-20 16:35] VITALS: BP 132/85
--- NOTE | 2019-09-24 08:19 | CON ---
[address] [address] CONSULTATION Name: ARMANDO MICHAEL Room: [address] IN M.R.#: [id number] Admission: 09/18/19 Attend Phys: Gin Murrieta Discharge: 09/20/19 Date of : 54 Report #: [id number] THIS REPORT FOR: //name// cc: Andrew Kauffman MD, Bruce D. MD ~ THIS REPORT FOR: //name// CC: Andrew Hampton DATE OF SERVICE: 09/19/2019 HISTORY OF PRESENT ILLNESS: This is a pleasant 68-year-old female. The patient has a known past medical history significant for morbid obesity, COPD, CHF, hypertension and coronary artery disease. The patient presented to the hospital with dyspnea and discomfort after eating. The patient reports the pain is located in the epigastric region and radiates backwards, associated with some nausea and vomiting. She denies any difficulty swallowing. The patient reports she has gained weight. She denies any weight loss. She denies any hematemesis, hematochezia or other alarm symptoms. PAST MEDICAL HISTORY: CHF, hypertension, obstructive sleep apnea. PAST SURGICAL HISTORY: The patient has a history of knee replacement in 2016. Left breast biopsy, 2017. Remote history of hysterectomy. SOCIAL HISTORY: The patient denies smoking, alcohol or recreational drug use. FAMILY HISTORY: No family history of colon cancer or White related neoplasia. REVIEW OF SYSTEMS: A comprehensive 10-point review of systems is negative except for what was mentioned in the HPI. PHYSICAL EXAMINATION: VITAL SIGNS: Temperature 36.7, pulse rate 55, respirations 20, blood pressure 108/66. GENERAL: The patient is alert, awake, oriented x 3. HEENT: Pupils are equal, round, reactive to light and accommodation. Mucous membranes are moist. There is no congestion. LUNGS: Clear to auscultation bilaterally. CARDIOVASCULAR: Rate and rhythm regular, S1, S2 present. ABDOMEN: Soft. There is no distention, guarding or rigidity. EXTREMITIES: Warm, well perfused. There is no edema. SKIN: Warm and dry. LABORATORY DATA: Hemoglobin 12.4, hematocrit 37.8, platelet count 117, [place] [address] CONSULTATION Name: ARMANDO MICHAEL Room: [address]#: [id number] Admission: 09/18/19 Attend Phys: Gin Murrieta Discharge: 09/20/19 Date of : 54 Report #: [id number] count 6.9. INR 1.1. Sodium 143, potassium 3.6, chloride 106, bicarbonate 32, BUN 18, creatinine 1. Barium swallow normal. IMAGING: CT angio of the chest and thorax, single level severe disease in the thoracic spine. ASSESSMENT AND PLAN: A pleasant 68-year-old female with history outlined above, presenting with epigastric pain and discomfort with food. The patient had an EGD back in 2019, which showed LA grade ____ esophagitis. The patient was placed on PPI as well as amitriptyline for noncardiac chest pain. I would recommend getting an EGD with Lawrence capsule placement. This can be done as outpatient if the patient is discharged before Saturday, <ELECTRONICALLY SIGNED> By: Vinayak Patrick MD 09/24/19 0819 1628 1950Vinayak Patrick MD /nt
== END 2019-09-20 18:00 | disposition home or self-care (01) | DRG 291 ==
LOC: M.ERS 09:57 → M.2W 11:48 → M.TBA-ER 11:48 → M.2W 13:20
PROVIDERS: Emergency Medicine; ADMIT Internal Medicine
PROC: 5A09357 Assistance with Respiratory Ventilation, Less than 24 Consecutive Hours, Continuous Positive Airway Pressure (ICD-10-PCS; principal; 2019-09-19)
DX: I11.0 Hypertensive heart disease with heart failure (principal); J96.01 Acute respiratory failure with hypoxia; E87.2 Acidosis; Z68.44 Body mass index [BMI] 60.0-69.9, adult; D68.59 Other primary thrombophilia; N39.0 Urinary tract infection, site not specified; I50.33 Acute on chronic diastolic (congestive) heart failure; F32.9 Major depressive disorder, single episode, unspecified; Z96.653 Presence of artificial knee joint, bilateral; F41.1 Generalized anxiety disorder; E03.9 Hypothyroidism, unspecified; E66.01 Morbid (severe) obesity due to excess calories; G47.33 Obstructive sleep apnea (adult) (pediatric); R13.10 Dysphagia, unspecified; E11.9 Type 2 diabetes mellitus without complications; J44.9 Chronic obstructive pulmonary disease, unspecified; I25.10 Atherosclerotic heart disease of native coronary artery without angina pectoris; Z90.710 Acquired absence of both cervix and uterus; Z79.84 Long term (current) use of oral hypoglycemic drugs; Z79.01 Long term (current) use of anticoagulants; Z79.899 Other long term (current) drug therapy; Z87.891 Personal history of nicotine dependence; Z88.0 Allergy status to penicillin; Z88.8 Allergy status to other drugs, medicaments and biological substances; Z86.718 Personal history of other venous thrombosis and embolism; Z99.81 Dependence on supplemental oxygen

== ENCOUNTER 2019-11-09 09:17 | Emergency (ER) | payer OTHER, MEDICAID ==
[~2019-11-09] VITALS: Ht 165.1 cm; Wt 183.7 kg
[~2019-11-09 09:17] MED LIST changes: +FLORASTOR250 MG PO
[2019-11-09] MEDS ORDERED: NORCO 5-325 TA1 EAC1 PO (11:12)
[2019-11-09 11:21] VITALS: BP 123/72
== END 2019-11-09 11:23 | disposition home or self-care (01) ==
LOC: M.ERS 09:17
DX: M54.5 Low back pain (principal); M25.551 Pain in right hip; E03.9 Hypothyroidism, unspecified; E66.01 Morbid (severe) obesity due to excess calories; Z87.891 Personal history of nicotine dependence; Z88.0 Allergy status to penicillin; Z88.8 Allergy status to other drugs, medicaments and biological substances; Z79.01 Long term (current) use of anticoagulants; Z79.899 Other long term (current) drug therapy; Z90.710 Acquired absence of both cervix and uterus; W01.0XXA Fall on same level from slipping, tripping and stumbling without subsequent striking against object, initial encounter; Y93.89 Activity, other specified; Y92.090 Kitchen in other non-institutional residence as the place of occurrence of the external cause; Y99.9 Unspecified external cause status

== ENCOUNTER 2019-12-14 09:36 | Emergency (ER) | payer OTHER, MEDICAID ==
[~2019-12-14] VITALS: Ht 165.1 cm; Wt 186.0 kg
[~2019-12-14 09:36] MED LIST changes: +NORCO 5-325 TA1 EAC1 PO
[2019-12-14 10:45] LABS: ABSOLUTE BASOPHILS 0.1 thou/uL (0.0-0.2); ABSOLUTE EOSINOPHILS 0.1 thou/uL (0.0-0.7); ABSOLUTE LYMPHOCYTES 1.4 thou/uL (0.8-5.3); ABSOLUTE MONOCYTES 0.5 thou/uL (0.0-1.2); ABSOLUTE NEUTROPHILS 4.9 thou/uL (1.6-8.1); BASOPHILS 1.1 %; EOSINOPHILS 0.9 %; HEMATOCRIT 40.8 % (37.0-47.0); HEMOGLOBIN 13.4 gm/dL (12.0-15.0); LYMPHOCYTES 19.9 %; MCHC 32.9 g/dL (28.0-37.0); MCV 82.1 fL (80.0-100.0); MONOCYTES 6.7 %; MPV 9.7 fl. (7.2-11.1); NUCLEATED RBCS 0 /100WBC; PLATELET COUNT* 171 thou/uL (150-400); POLYS 71.4 %; RBC 4.97 mil/uL (4.20-5.00); RDW-CV 16.3 % (10.5-14.5); WBC 6.9 thou/uL (4.0-11.0)
[2019-12-14 10:57] LABS: APTT 27.1 Seconds (25.0-31.3); INR 1.3
[2019-12-14 11:00] LABS: CALCIUM 8.3 mg/dL (8.5-10.1); CREATININE 1.1 mg/dL (0.6-1.3); POTASSIUM 4.1 mmol/L (3.5-5.1)
[2019-12-14 11:11] LABS: ALBUMIN 3.3 g/dL (3.4-5.0); TOTAL BILIRUBIN 0.7 mg/dL (<0.1-1.0); TOTAL PROTEIN 6.9 g/dL (6.4-8.2)
[2019-12-14] MEDS ORDERED: ATIVAN0.5 M1 PO (15:24)
[2019-12-14 15:33] VITALS: BP 146/103
--- NOTE | 2019-12-15 09:31 | EKG ---
[place] [address] ELECTROCARDIOGRAM REPORT Name: ARMANDO MICHAEL Room: [facility]#: [id number] Admission: 12/14/19 Attend Phys: Discharge: 12/14/19 Date of : 54 Date of Service: 12/14/19 0944 Report #: [id number] THIS REPORT FOR: //name// [facility] ED Test Date: 2019-12-14 Test Time: 09:44:17 Pat Name: ARMANDO MICHAEL Department: Room: Gender: F Seismograph Recorder: SANDRO : 1950 Requested By: Vidhya Lindsey Order Number: [id number] MD: Rasheed White Measurements Intervals [place] Rate: 66 P: [place]: QRS: 30 QRSD: 87 T: 17 QT: 419 QTc: 439 Interpretive Statements Sinus rhythm low voltage, precordial leads Borderline abnrm T, anterolateral leads Baseline artifact compared to ECG 09/18/2019 11:07:33 Baseline artifact now present. Electronically Signed On 12-15-2019 9:31:01 CDT by Rsaheed White [email or web address] <ELECTRONICALLY SIGNED> By: Rasheed White MD, FAC 12/15/19 0931 0944 Rasheed White MD, [facility] /EPI
== END 2019-12-14 15:35 | disposition home or self-care (01) ==
LOC: M.ERS 09:36
PROVIDERS: Personal Emergency Response Attendant
DX: E66.01 Morbid (severe) obesity due to excess calories (principal); R06.00 Dyspnea, unspecified; E11.9 Type 2 diabetes mellitus without complications; F41.9 Anxiety disorder, unspecified; Z68.44 Body mass index [BMI] 60.0-69.9, adult; Z96.653 Presence of artificial knee joint, bilateral; Z86.14 Personal history of Methicillin resistant Staphylococcus aureus infection; Z90.710 Acquired absence of both cervix and uterus; Z87.891 Personal history of nicotine dependence; Z88.0 Allergy status to penicillin; Z88.8 Allergy status to other drugs, medicaments and biological substances

== ENCOUNTER 2020-01-07 09:16 | Emergency (ER) | payer OTHER, MEDICAID ==
[~2020-01-07] VITALS: Ht 165.1 cm; Wt 186.0 kg
[~2020-01-07 09:16] MED LIST changes: +ATIVAN0.5 M1 PO
[2020-01-07] MEDS ORDERED: PRILOSEC OTC20 MG PO (09:30)
[2020-01-07 09:56] LABS: ABSOLUTE EOSINOPHILS 0.1 thou/uL (0.0-0.7); ABSOLUTE LYMPHOCYTES 1.5 thou/uL (0.8-5.3); ABSOLUTE MONOCYTES 0.4 thou/uL (0.0-1.2); ABSOLUTE NEUTROPHILS 4.7 thou/uL (1.6-8.1); BASOPHILS 0.4 %; EOSINOPHILS 1.1 %; HEMATOCRIT 44.5 % (37.0-47.0); HEMOGLOBIN 14.9 gm/dL (12.0-15.0); MCH 27.3 pg (26.0-34.0); MCHC 33.4 g/dL (28.0-37.0); MCV 81.6 fL (80.0-100.0); MONOCYTES 5.8 %; MPV 9.7 fl. (7.2-11.1); NUCLEATED RBCS 0 /100WBC; PLATELET COUNT* 160 thou/uL (150-400); POLYS 70.7 %; RBC 5.45 mil/uL (4.20-5.00); RDW-CV 15.7 % (10.5-14.5); WBC 6.7 thou/uL (4.0-11.0)
[2020-01-07 10:14] LABS: CALCIUM 8.5 mg/dL (8.5-10.1); POTASSIUM 3.8 mmol/L (3.5-5.1)
[2020-01-07 10:25] LABS: ALBUMIN 3.3 g/dL (3.4-5.0); TOTAL BILIRUBIN 0.6 mg/dL (<0.1-1.0); TOTAL PROTEIN 6.6 g/dL (6.4-8.2)
[2020-01-07 11:30] VITALS: BP 131/69
== END 2020-01-07 11:31 | disposition home or self-care (01) ==
LOC: M.ERS 09:16
PROVIDERS: Emergency Medicine Emergency Medical Services
DX: M25.472 Effusion, left ankle (principal); M25.471 Effusion, right ankle; E11.9 Type 2 diabetes mellitus without complications; G47.33 Obstructive sleep apnea (adult) (pediatric); E66.01 Morbid (severe) obesity due to excess calories; Z68.44 Body mass index [BMI] 60.0-69.9, adult; Z96.653 Presence of artificial knee joint, bilateral; Z86.14 Personal history of Methicillin resistant Staphylococcus aureus infection; Z90.710 Acquired absence of both cervix and uterus; Z88.0 Allergy status to penicillin; Z88.8 Allergy status to other drugs, medicaments and biological substances; Z87.891 Personal history of nicotine dependence

== ENCOUNTER → 2020-03-01 | Day surgery (SDC) | payer OTHER, MEDICAID ==
[~2020-03-01] MED LIST changes: +ARIPIPRAZOLE20 MG PO; +COLACE100 MG PO; +FUROSEMIDE 20 M20 MG PO; +GABAPENTIN600 M1 PO; +JANUVIA100 MG PO; +PRILOSEC OTC20 MG PO; +WARFARIN SODIUM5 MG PO
--- NOTE | ~2020-03-01 | PROC ---
[address] [address] PROCEDURE REPORT Name: ARMANDO MICHAEL Room: [facility].#: [id number] Admission: 03/01/20 Attend Phys: Rubina Camarena MD Discharge: Date of : 54 Report #: [id number] THIS REPORT FOR: //name// cc: Andrew Kauffman MD, Bruce D. MD ~ THIS REPORT FOR: //name// For GI report, please see the Provation report in Perceptive 7 content. By: 1448Medical Records Staff LEROY /SANDRO
[2020-03-01 06:34] LABS: HEMATOCRIT 49.2 % (37.0-47.0); HEMOGLOBIN 16.2 gm/dL (12.0-15.0); MCH 26.8 pg (26.0-34.0); MCHC 32.9 g/dL (28.0-37.0); MCV 81.6 fL (80.0-100.0); MPV 9.3 fl. (7.2-11.1); RBC 6.03 mil/uL (4.20-5.00); RDW-CV 15.9 % (10.5-14.5); WBC 8.4 thou/uL (4.0-11.0)
[2020-03-01 06:40] LABS: CALCIUM 9.5 mg/dL (8.5-10.1); CREATININE 1.1 mg/dL (0.6-1.3); POTASSIUM 4.1 mmol/L (3.5-5.1)
[2020-03-01 06:42] LABS: PROTIME 10.4 Seconds (9.20-11.50)
--- NOTE | 2020-03-03 11:07 | PATH ---
[address] [address] PATHOLOGY RPT PROCEDURE Name: STORMY MICHAEL Room: [facility].R.#: [id number] Admission: 03/01/20 Date of : 54 Discharge: Report #: [id number] Path Case #: [id number] [facility] Accession Number: [id number] . 01 Material submitted: . stomach - GASTRIC BIOPSY TO R/O H. PYLORI . 01 Clinical history: . N/V . 02 Diagnosis: Gastric biopsy: - Mild chronic and active gastritis typical of reactive gastropathy (chemical gastritis), negative for Helicobacter pylori organisms, granulomas and dysplasia. (RIVAS/db; 03/03/2020) . Special stain: H. pylori LBQ 03/03/2020 1020 Local . 02 Electronically signed: . Linwood Cuellar MD, Pathologist NPI- [id number] . 01 Gross description: . The specimen is received in formalin, labeled "Stormy Michael, gastric biopsy to R/O H. pylori". Received are five segments of pale cuadra soft tissue ranging in size from 0.3 to 0.7 cm in maximum dimensions. The specimen is submitted entirely in cassette A1. (CAA; 03/02/2020) QA/QA 03/02/2020 1528 Local . 02 Pathologist provided ICD-10: K29.50 . 02 CPT . 472722, O45338 Specimen Comment: A courtesy copy of this report has been sent to [phone], [phone] Specimen Comment: [phone] Specimen Comment: Report sent to / DR MERINO Performed at: [address] [id number] MD Zack Gonzalez MD Phone: [phone] Performed at: [address] [address] [place] [id number] [place] [address] PATHOLOGY RPT PROCEDURE Name: STORMY MICHAEL Room: [facility] M.RAurora#: [id number] Admission: 03/01/20 Date of : 54 Discharge: Report #: [id number] Path Case #: [id number] MD Linwood Cuellar MD Phone: [phone]
== END | disposition home or self-care (01) ==
LOC: M.SUR 06:09
PROVIDERS: ATTEND Internal Medicine Gastroenterology
DX: R10.13 Epigastric pain (principal); K44.9 Diaphragmatic hernia without obstruction or gangrene; K29.50 Unspecified chronic gastritis without bleeding; K21.00 Gastro-esophageal reflux disease with esophagitis, without bleeding; K31.89 Other diseases of stomach and duodenum; E66.01 Morbid (severe) obesity due to excess calories; E11.9 Type 2 diabetes mellitus without complications; F41.9 Anxiety disorder, unspecified; I50.30 Unspecified diastolic (congestive) heart failure; R11.2 Nausea with vomiting, unspecified; Z87.440 Personal history of urinary (tract) infections; Z79.899 Other long term (current) drug therapy; Z98.890 Other specified postprocedural states

== ENCOUNTER → 2020-04-29 | Outpatient (CLI) | payer OTHER, MEDICAID ==
[2020-04-29 14:32] LABS: ALBUMIN 3.1 g/dL (3.4-5.0); CALCIUM 8.4 mg/dL (8.5-10.1); CREATININE 0.8 mg/dL (0.6-1.3); POTASSIUM 4.3 mmol/L (3.5-5.1); TOTAL BILIRUBIN 0.3 mg/dL (<0.1-1.0); TOTAL PROTEIN 6.9 g/dL (6.4-8.2)
== END ==
LOC: M.MRI 04-22 13:30 → M.LAB 04-22 13:30
PROVIDERS: ATTEND Nurse Practitioner Family
DX: M51.26 Other intervertebral disc displacement, lumbar region (principal); E11.65 Type 2 diabetes mellitus with hyperglycemia

== ENCOUNTER 2020-09-20 12:55 | Observation (INO) | payer OTHER, MEDICAID ==
[~2020-09-20] VITALS: Ht 165.1 cm; Wt 174.7 kg
[2020-09-20 13:06] VITALS: BP 167/80
[2020-09-20] MEDS ORDERED: PYRIDIUM200 MG PO (13:09)
[2020-09-20] MEDS ORDERED: CEPHALEXIN 250250 M1 PO (13:09)
[2020-09-20] MEDS ORDERED: ABILIFY15 MG PO (13:11)
[2020-09-20] MEDS ORDERED: NORCO7.5 PO (13:12)
[2020-09-20] MEDS ORDERED: OMEPRAZOLE 20 M20 M1 PO (13:12)
[2020-09-20] MEDS ORDERED: COLESTIPOL HCL1 G1 PO (13:12)
[2020-09-20 13:50] LABS: ABSOLUTE BASOPHILS 0.1 thou/uL (0.0-0.2); ABSOLUTE LYMPHOCYTES 1.3 thou/uL (0.8-5.3); ABSOLUTE MONOCYTES 0.4 thou/uL (0.0-1.2); ABSOLUTE NEUTROPHILS 4.6 thou/uL (1.6-8.1); BASOPHILS 1.5 %; EOSINOPHILS 0.5 %; HEMATOCRIT 46.8 % (37.0-47.0); HEMOGLOBIN 15.2 gm/dL (12.0-15.0); LYMPHOCYTES 19.6 %; MCH 27.6 pg (26.0-34.0); MCHC 32.6 g/dL (28.0-37.0); MCV 84.8 fL (80.0-100.0); MONOCYTES 5.9 %; MPV 9.8 fl. (7.2-11.1); NUCLEATED RBCS 0 /100WBC; PLATELET COUNT* 155 thou/uL (150-400); POLYS 72.5 %; RBC 5.52 mil/uL (4.20-5.00); RDW-CV 14.7 % (10.5-14.5); WBC 6.4 thou/uL (4.0-11.0)
[2020-09-20 14:01] LABS: CREATININE 0.8 mg/dL (0.6-1.3); POTASSIUM 4.5 mmol/L (3.5-5.1)
[2020-09-20 14:06] LABS: ALBUMIN 3.2 g/dL (3.4-5.0); TOTAL BILIRUBIN 1.1 mg/dL (<0.1-1.0); TOTAL PROTEIN 7.1 g/dL (6.4-8.2)
[2020-09-20 14:37] LABS: INR 1.1; PROTIME 11.6 Seconds (9.20-11.50)
--- NOTE | 2020-09-20 16:13 | EKG ---
[place] [address] ELECTROCARDIOGRAM REPORT Name: ARMANDO MICHAEL Room: [address]R.#: [id number] Admission: 09/20/20 Attend Phys: Radha Becker, Discharge: Date of : 54 Date of Service: 09/20/20 1304 Report #: [id number] THIS REPORT FOR: //name// [facility] ED Test Date: 2020-09-20 Test Time: 13:04:11 Pat Name: ARMANDO MICHAEL Department: Room: [facility] Gender: F Monitoring And Evaluation Advisor: KILO : 1950 Requested By: Joel Garcia Order Number: [id number] MD: Rasheed White Measurements Intervals [place] Rate: 69 P: NE: QRS: 35 QRSD: 103 T: -20 QT: 426 QTc: 457 Interpretive Statements Atrial fibrillation low voltage, precordial leads Borderline T abnormalities, diffuse leads Baseline wander in lead(s) I,II,aVR Compared to ECG 12/14/2019 09:44:17 Atrial fibrillation now present T-wave abnormality now present Sinus rhythm no longer present Electronically Signed On 09-20-2020 16:13:39 CDT by Rasheed White [email or web address] <ELECTRONICALLY SIGNED> By: Rasheed White MD, [facility] 09/20/20 1613 1304 1304 Rasheed White MD, [facility] /EPI
--- NOTE | 2020-09-20 16:14 | EKG ---
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1950 Requested By: Joel Garcia Order Number: [id number] MD: Rasheed White Measurements Intervals [place] Rate: 66 P: 24 [place]: 171 QRS: 26 QRSD: 104 T: -38 QT: 426 QTc: 447 Interpretive Statements Sinus rhythm Low voltage, precordial leads Borderline T abnormalities, diffuse leads Compared to ECG 12/14/2019 09:44:17 T-wave abnormality now present Electronically Signed On 09-20-2020 16:13:49 CDT by Rasheed White [email or web address] <ELECTRONICALLY SIGNED> By: Rasheed White MD, [facility] 09/20/20 1613 1415 1415 Rasheed White MD, [facility] /EPI
[2020-09-20 16:29] VITALS: BP 109/37
[2020-09-20 16:55] VITALS: BP 119/70
[2020-09-20 19:35] VITALS: BP 156/59
[2020-09-20 23:45] VITALS: BP 106/51
[2020-09-21 04:03] VITALS: BP 100/49
[2020-09-21 08:00] VITALS: BP 124/49
[2020-09-21 12:00] VITALS: BP 135/82
--- NOTE | 2020-09-21 13:06 | CON ---
[address] [address] CONSULTATION Name: ARMANDO MICHAEL Room: [address] M.R.#: [id number] Admission: 09/20/20 Attend Phys: Radha Becker MD Discharge: Date of : 54 Report #: [id number] THIS REPORT FOR: cc: Andrew Kauffman MD, Bruce D. MD Blick, David R. MD [facility] ~ DOC #: [id number] cc: MD Bob Nunez MD [facility] DATE OF CONSULTATION: 09/21/2020 CARDIOLOGY CONSULTATION HISTORY OF PRESENT ILLNESS: The patient is a 69-year-old single white female who I was asked to see in the hospital today after she complained of chest pain. The patient has an extensive and complicated past medical history. She is morbidly obese, standing 5 feet 5 inches, weighing 387 pounds. She is not very active at this time. She has a long history of chest pain. She has had several nuclear stress tests in the past. Eventually, she had a cardiac catheterization in May [address] White here at [facility] from the right radial artery. Ejection fraction is 65%. There was normal coronary arteries. It was felt that her chest pain was noncardiac. She states that recently she has felt tired and had no energy. She also complains of a dull ache in her chest. It occurs off and on. It is not related to activity or meals. There is no rash. There is no radiation of the discomfort. She finally drove herself to the Emergency Room yesterday and was admitted for further evaluation and treatment. She does complain of shortness of breath and edema. She has felt lightheaded. PAST MEDICAL AND SURGICAL HISTORY: Significant for: 1. Hysterectomy. 2. Knee surgery. 3. Diabetes. 4. Previous pulmonary embolus. 5. She is chronically anticoagulated. CURRENT MEDICATIONS: She uses: 1. Inhaler. 2. Xanax. 3. Lipitor. 4. Nexium. 5. Lasix. 6. [place] [address] CONSULTATION Name: ARMANDO MICHAEL Room: [address]#: [id number] Admission: 09/20/20 Attend Phys: Radha Becker MD Discharge: Date of : 54 Report #: [id number] 7. Glipizide. 8. Synthroid. 9. Metformin. 10. Warfarin. ALLERGIES: She has previous intolerance to PENICILLIN. FAMILY HISTORY: Her father had heart disease. SOCIAL HISTORY: She is , lives by herself in [place], [place]. No smoking. No alcohol abuse. REVIEW OF SYSTEMS: She has had no history of stroke. She does have a history of sleep apnea, uses CPAP. No history of liver disease, kidney disease, cancer. She has seen psychiatry in the past. No chronic skin condition. PHYSICAL EXAMINATION: GENERAL: Reveals a middle-aged female who appears in no distress. VITAL SIGNS: She had a blood pressure of 120/60, pulse of 60. She is afebrile. HEENT: She was anicteric. Conjunctivae pink. Mucosa is moist. NECK: Veins difficult to assess due to obesity. CHEST: Clear to auscultation. CARDIAC: Regular rate and rhythm without rub. ABDOMEN: Obese. EXTREMITIES: Had trace edema. SKIN: Cool and dry. NEUROLOGIC: Nonfocal. LABORATORY DATA: Her ECG showed a sinus rhythm. There were nonspecific T-wave changes noted. On her workup in the Emergency Room yesterday, she had a portable chest x-ray, which showed cardiomegaly, some atelectasis. She actually had a CT scan of the chest using a PE protocol that showed no pulmonary embolus, no aortic dissection. LABORATORY DATA: Sodium 140, potassium 4.5, creatinine 0.8. Her liver function studies were normal. Troponins were all less than 0.06. Free T4 last December was 1.4. Her white blood cell count 6.4, hemoglobin 15.2. [place] [address] CONSULTATION Name: ARMANDO MICHAEL Room: [address] M.R.#: [id number] Admission: 09/20/20 Attend Phys: Radha Becker MD Discharge: Date of : 54 Report #: [id number] Her COVID antigen stat test was negative. Her urinalysis is negative for protein, 1+ leukocytes, few bacteria. She had an echocardiogram performed a year ago here at [facility] that showed an ejection fraction of 60%. IMPRESSION AND RECOMMENDATIONS: 1. Chest pain. Suspect noncardiac. Cardiac catheterization 2 years ago showed no significant coronary artery disease. Recommend no further cardiac evaluation. 2. Shortness of breath. Suspect secondary to severe obesity. 3. Edema. Suspect venous insufficiency. Recommend Lasix. 4. Sleep apnea. The patient uses CPAP. 5. Chronic obstructive pulmonary disease. 6. History of pulmonary embolus. The patient is chronically anticoagulated. 7. Hyperlipidemia. The patient is on a statin drug. 8. Diabetes. Bob Castillo MD [facility] DR[facility]/[place] <ELECTRONICALLY SIGNED> By: Bob Castillo MD, [facility] 09/21/20 1306 0814 0958Datina Castillo MD, [facility] /nt
[2020-09-21 16:35] VITALS: BP 109/56
[2020-09-21 20:54] VITALS: BP 104/48
[2020-09-21 23:50] VITALS: BP 105/50
[2020-09-22 03:31] VITALS: BP 119/60
[2020-09-22 04:08] LABS: HEMATOCRIT 44.8 % (37.0-47.0); HEMOGLOBIN 14.3 gm/dL (12.0-15.0); MCH 27.4 pg (26.0-34.0); MCHC 31.9 g/dL (28.0-37.0); MCV 85.9 fL (80.0-100.0); MPV 9.5 fl. (7.2-11.1); RBC 5.22 mil/uL (4.20-5.00); RDW-CV 14.8 % (10.5-14.5); WBC 6.8 thou/uL (4.0-11.0)
[2020-09-22 04:25] LABS: CALCIUM 8.7 mg/dL (8.5-10.1); POTASSIUM 3.8 mmol/L (3.5-5.1)
[2020-09-22 12:58] VITALS: BP 119/60
== END 2020-09-22 13:20 | disposition home or self-care (01) ==
LOC: M.ERS 12:55 → M.2W 14:23 → M.TBA-ER 14:23 → M.2W 16:41
PROVIDERS: Emergency Medicine; Family Medicine; ADMIT Internal Medicine; ATTEND Internal Medicine
DX: I50.33 Acute on chronic diastolic (congestive) heart failure (principal); R07.89 Other chest pain; Z20.822 Contact with and (suspected) exposure to COVID-19; F32.9 Major depressive disorder, single episode, unspecified; F41.9 Anxiety disorder, unspecified; G89.29 Other chronic pain; M54.9 Dorsalgia, unspecified; E66.01 Morbid (severe) obesity due to excess calories; E11.9 Type 2 diabetes mellitus without complications; E03.9 Hypothyroidism, unspecified; G47.33 Obstructive sleep apnea (adult) (pediatric); Z88.0 Allergy status to penicillin; Z88.8 Allergy status to other drugs, medicaments and biological substances; Z68.44 Body mass index [BMI] 60.0-69.9, adult; Z79.01 Long term (current) use of anticoagulants

== ENCOUNTER → 2020-11-10 | Outpatient (CLI) | payer OTHER, MEDICAID ==
[~2020-11-10] MED LIST changes: +ABILIFY15 MG PO; +CEPHALEXIN 250250 M1 PO; +COLESTIPOL HCL1 G1 PO; +NORCO7.5 PO; +OMEPRAZOLE 20 M20 M1 PO; +PYRIDIUM200 MG PO; +SERTRALINE HCL100 MG PO
== END ==
LOC: M.PC 11-01 12:00
PROVIDERS: ATTEND Anesthesiology Pain Medicine
DX: M48.061 Spinal stenosis, lumbar region without neurogenic claudication (principal); M47.26 Other spondylosis with radiculopathy, lumbar region; M51.16 Intervertebral disc disorders with radiculopathy, lumbar region; E03.9 Hypothyroidism, unspecified; E66.01 Morbid (severe) obesity due to excess calories; G47.33 Obstructive sleep apnea (adult) (pediatric); E11.9 Type 2 diabetes mellitus without complications; I10 Essential (primary) hypertension; E66.8 Other obesity; F41.1 Generalized anxiety disorder; Z68.44 Body mass index [BMI] 60.0-69.9, adult; Z88.0 Allergy status to penicillin; Z88.8 Allergy status to other drugs, medicaments and biological substances; Z79.891 Long term (current) use of opiate analgesic; Z79.899 Other long term (current) drug therapy

== ENCOUNTER 2020-11-29 14:00 | Inpatient (IN) | payer OTHER, MEDICAID ==
[~2020-11-29] VITALS: Ht 162.6 cm; Wt 180.5 kg
[2020-11-29 14:03] VITALS: BP 132/60; BP 78/42
[2020-11-29 14:33] LABS: ABSOLUTE BASOPHILS 0.1 thou/uL (0.0-0.2); ABSOLUTE LYMPHOCYTES 0.6 thou/uL (0.8-5.3); ABSOLUTE MONOCYTES 0.8 thou/uL (0.0-1.2); ABSOLUTE NEUTROPHILS 11.3 thou/uL (1.6-8.1); BASOPHILS 0.6 %; HEMATOCRIT 44.8 % (37.0-47.0); HEMOGLOBIN 14.8 gm/dL (12.0-15.0); LYMPHOCYTES 4.4 %; MCH 28.5 pg (26.0-34.0); MCV 86.3 fL (80.0-100.0); MONOCYTES 6.4 %; MPV 9.6 fl. (7.2-11.1); NUCLEATED RBCS 0 /100WBC; PLATELET COUNT* 185 thou/uL (150-400); POLYS 88.6 %; RBC 5.19 mil/uL (4.20-5.00); RDW-CV 14.4 % (10.5-14.5); WBC 12.8 thou/uL (4.0-11.0)
--- NOTE | 2020-11-29 14:41 | EKG ---
[place] [address] ELECTROCARDIOGRAM REPORT Name: ARMANDO MICHAEL Room: [facility]#: [id number] Admission: 11/29/20 Attend Phys: Discharge: Date of : 54 Date of Service: 11/29/20 1417 Report #: [id number] THIS REPORT FOR: //name// [facility] ED Test Date: 2020-11-29 Test Time: 14:17:45 Pat Name: ARMANDO MICHAEL Department: Room: Gender: F Parimutuel Cashier: HAMMAD : 1950 Requested By: Yo Anne Order Number: [id number] MD: Rasheed White Measurements Intervals [place] Rate: 65 P: [place]: QRS: 44 QRSD: 109 T: 260 QT: 428 QTc: 445 Interpretive Statements Sinus rhythm with premature atrial contractions Low voltage, precordial leads Abnormal T, consider ischemia, diffuse leads Baseline wander in lead(s) V4 Compared to ECG 09/20/2020 14:15:30 Possible ischemia now present Sinus rhythm no longer present T-wave abnormality still present Electronically Signed On 11-29-2020 14:40:53 CDT by Rasheed White [email or web address] <ELECTRONICALLY SIGNED> By: Rasheed White MD, [facility] 11/29/20 1440 16 16 Rasheed White MD, [facility] /EPI
[2020-11-29 14:46] LABS: CALCIUM 8.4 mg/dL (8.5-10.1); CREATININE 2.2 mg/dL (0.6-1.3); POTASSIUM 4.7 mmol/L (3.5-5.1)
[2020-11-29 15:00] LABS: ALBUMIN 3.1 g/dL (3.4-5.0); TOTAL BILIRUBIN 1.3 mg/dL (<0.1-1.0); TOTAL PROTEIN 6.9 g/dL (6.4-8.2)
[2020-11-29 15:14] LABS: URINE BLOOD 3+ (Negative); URINE CLARITY CLOUDY; URINE COLOR YELLOW; URINE GLUCOSE-RANDOM 3+ (Negative); URINE KETONES NEGATIVE (Negative); URINE LEUKOCYTES-REFLEX NEGATIVE (Negative); URINE NITRITE-REFLEX NEGATIVE (Negative); URINE PROTEIN TRACE (Negative); URINE SPECIFIC GRAVITY >= 1.030 (1.005-1.030)
[2020-11-29 15:17] LABS: ICTOTEST (BILI CONFIRMATORY) Negative (Negative); URINE BILIRUBIN 1+ (Negative)
[2020-11-29 15:33] LABS: BACTERIA-REFLEX 1-9 Few /HPF (None Seen); HYALINE CASTS 0-3 Few /LPF (None Seen); SQUAMOUS 4-10 Moderate /LPF (0-3); URINE RBC 3-10 Few /HPF (0-2); URINE WBC-REFLEX 0-5 Rare /HPF (0-5)
[2020-11-29 15:34] LABS: COARSE GRANULAR CASTS 0-3 Few /LPF (None Seen); CRYSTALS None Seen /LPF (None Seen)
[2020-11-29 18:50] VITALS: BP 99/55
[2020-11-29 20:00] VITALS: BP 102/39
[2020-11-30] VITALS (34 sets, daily range): BP systolic 73–182; BP diastolic 33–150
[2020-11-30 01:09] LABS: ALBUMIN 2.8 g/dL (3.4-5.0); CALCIUM 7.7 mg/dL (8.5-10.1); CREATININE 1.7 mg/dL (0.6-1.3); POTASSIUM 4.6 mmol/L (3.5-5.1); TOTAL BILIRUBIN 0.9 mg/dL (<0.1-1.0); TOTAL PROTEIN 6.1 g/dL (6.4-8.2)
--- NOTE | 2020-11-30 03:31 | NUR ---
ASSUMED CARE OF PT AFTER REPORT AT 1930. PT A&OX4. VSS. PHYSICAL ASSESSMENT COMPLETED AND CHARTED. PT ON O2 AT 4L NC. PT TRACING SR/ST ON TELE. PT WITH GARDUNO TO DEPENDENT DRAIN. URINE SPECIMEN SENT TO LAB. PT INSTRUCTED ON NPO ORDERED. COMMUNICATES UNDERTSTANING. PT COMLAINED OF BILATERAL SHOULDER PAIN-DR FARLEY MADE AWARE WITH NO NEW ORDER. PT ABLE TO SLEEP WELL ON BED. FALL PRECAUTIONS IN PLACE. CALL LIGHT WITHIN REACH.
--- NOTE | 2020-11-30 09:00 | NUR ---
BEDSIDE ECHO DONE THIS AM.
[2020-11-30 11:11] LABS: BE -5.8 mmol/L (-2 to +3)
[2020-11-30 11:13] LABS: PCO2 74.7 mmHg (35.0-45.0); PO2 58.1 mmHg (75.0-100.0); pH 7.142 (7.340-7.450)
--- NOTE | 2020-11-30 12:41 | NUR ---
THIS RN IS ASSUMING CARE OF PATIENT AT THIS TIME. AGREES WITH MORNING CHARTING.
[2020-11-30 12:57] LABS: PCO2 102.4 mmHg (35.0-45.0); pH 7.021 (7.340-7.450)
[2020-11-30 12:58] LABS: PO2 147.4 mmHg (75.0-100.0)
--- NOTE | 2020-11-30 13:16 | 2DMMODE ---
[place] [address] 2 D/M-MODE ECHOCARDIOGRAM Name: ARMANDO MICHAEL Room: [address] IN .R.#: [id number] Admission: 11/29/20 Attend Phys: Abhi Mabry Discharge: Date of : 54 Date of Service: 11/30/20 1316 Report #: [id number] THIS REPORT FOR: cc: Andrew Kauffman MD, Bruce D. MD Holkins,David King MD [facility] ~ APPROVED REPORT Study performed: 11/30/2020 10:25:50 EXAM: Comprehensive 2D, Doppler, and color-flow Echocardiogram Patient Location: In-Patient Room #: 211 Status: routine BSA: 2.57 HR: 118 bpm BP: 132/65 mmHg Rhythm: NSR Other Information Study Quality: Technically Difficult Technically limited study due to body habitus, poor endocardial definition, inability to position patient. Indications Congestive Heart Failure Echo Enhancing Agent Indication: Endocardial border delineation Agent(s) / Amount(s) Used: Optison 3 cc 2D Dimensions IVSd: 16.80 (7-11mm) LVDd: 61.95 mm PWd: 13.30 (7-11mm) Ascending Ao: 33.93 (22-36mm) Aortic Root: 33.29 mm Left Ventricle The left ventricle is normal size. There is normal LV segmental wall motion. Borderline concentric left ventricular hypertrophy. Left ventricular systolic function is hyperdynamic. LVEF is 65-70%. This study is not technically sufficient to allow evaluation of the LV diastolic function. [address] [address] 2 D/M-MODE ECHOCARDIOGRAM Name: ARMANDO MICHAEL Room: [address] IN [facility]#: [id number] Admission: 11/29/20 Attend Phys: Abhi Mabry Discharge: Date of : 54 Date of Service: 11/30/20 1316 Report #: [id number] Right Ventricle The right ventricle is normal size. The right ventricular systolic function is normal. Atria The left atrium size is normal. The right atrium size is normal. Aortic Valve The aortic valve is normal in structure. Mitral Valve Mitral valve is not well visualized. Tricuspid Valve Tricuspid valve is not well visualized. Great Vessels Aortic root is not well visualized. IVC is normal in size and collapses >50% with inspiration. Pericardium There is no pericardial effusion. <Conclusion> The left ventricle is normal size. Borderline concentric left ventricular hypertrophy. Left ventricular systolic function is hyperdynamic. LVEF is 65-70%. This study is not technically sufficient to allow evaluation of the LV diastolic function. The right ventricle is normal size. The left atrium size is normal. The aortic valve is normal in structure. Mitral valve is not well visualized. Tricuspid valve is not well visualized. IVC is normal in size and collapses >50% with inspiration. There is no pericardial effusion. There is normal LV segmental wall motion. <ELECTRONICALLY SIGNED> By: David Albert MD, FACC 11/30/20 1316 1316 1316 David Albert MD, FACC /INF
--- NOTE | 2020-11-30 13:26 | NUR ---
PATIENT TRANSFERED TO ICU AT THIS TIME VIA BED, ACCOMPANIED BY NURSING STAFF AND RT. PATIENT TRANSFERED ON BIPAP. GARDUNO SECURELY IN PLACE. IV TO LEFT WRIST, PATENT.
[2020-11-30 13:31] LABS: ABSOLUTE BASOPHILS 0.1 thou/uL (0.0-0.2); ABSOLUTE EOSINOPHILS 0.1 thou/uL (0.0-0.7); ABSOLUTE LYMPHOCYTES 1.4 thou/uL (0.8-5.3); ABSOLUTE MONOCYTES 1.4 thou/uL (0.0-1.2); ABSOLUTE NEUTROPHILS 8.8 thou/uL (1.6-8.1); BASOPHILS 1.3 %; EOSINOPHILS 0.5 %; HEMATOCRIT 41.2 % (37.0-47.0); HEMOGLOBIN 13.6 gm/dL (12.0-15.0); LYMPHOCYTES 11.7 %; MCH 28.9 pg (26.0-34.0); MCHC 32.9 g/dL (28.0-37.0); MCV 87.9 fL (80.0-100.0); MONOCYTES 11.9 %; MPV 10.5 fl. (7.2-11.1); NUCLEATED RBCS 0 /100WBC; PLATELET COUNT* 168 thou/uL (150-400); POLYS 74.6 %; RBC 4.69 mil/uL (4.20-5.00); RDW-CV 14.8 % (10.5-14.5); WBC 11.8 thou/uL (4.0-11.0)
[2020-11-30 13:37] LABS: CREATININE 1.6 mg/dL (0.6-1.3)
[2020-11-30 13:42] LABS: ALBUMIN 2.8 g/dL (3.4-5.0); MAGNESIUM 2.3 mg/dL (1.8-2.4); TOTAL BILIRUBIN 0.7 mg/dL (<0.1-1.0); TOTAL PROTEIN 6.4 g/dL (6.4-8.2)
[2020-11-30 13:43] LABS: POTASSIUM 5.7 mmol/L (3.5-5.1)
--- NOTE | 2020-11-30 13:54 | NUR ---
Pt too sleepy to be assessed. Romaine saw and opted to transfer Pt to ICU, CM was unable to assess Pt. CM to attempt left message on Pt's contact's phone.
--- NOTE | 2020-11-30 14:39 | NUR ---
RIGHT BASILIC VESSEL ACCESSED FOR 5 BENINESE TRIPLE LUMEN PICC. LINE PRE-TRIMMED TO 48CM AND ADVANCED TO THE ZERO MARJORIE WITH NO RESISTANCE MET. UPPER ARM CIRCUMFERENCE ABOVE INSERTION SITE= 18". SHERLOCK MAGNET AND 3CG CONFIRMATION OF TIP TERMINATION AT THE CAVOATRIAL JUNCTION APPRECIATED. GUIDE WIRE REMOVED, LINE FLUSHED AND INSERTION SITE DRESSED. REPORT GIVEN TO WEI HERNANDEZ.
[2020-11-30 14:48] LABS: APTT 23.1 Seconds (25.0-31.3); INR 1.1; PROTIME 11.7 Seconds (9.20-11.50)
[2020-11-30 15:47] LABS: BE -6.9 mmol/L (-2 to +3); PCO2 37.1 mmHg (35.0-45.0); pH 7.317 (7.340-7.450)
[2020-11-30 15:50] LABS: PO2 182.3 mmHg (75.0-100.0)
--- NOTE | 2020-11-30 16:28 | EKG ---
[place] [address] ELECTROCARDIOGRAM REPORT Name: ARMANDO MICHAEL Room: [address] ADM IN M.R.#: [id number] Admission: 11/29/20 Attend Phys: Abhi Mabry Discharge: Date of : 54 Date of Service: 11/30/20 0517 Report #: [id number] THIS REPORT FOR: //name// [facility] Test Date: 2020-11-30 Test Time: 05:17:58 Pat Name: ARMANDO MICHAEL Department: Room: [facility] Gender: F Receivable Manager: LATOSHA : 1950 Requested By: Debora Turcios Order Number: [id number] Reading MD: David Albert Measurements Intervals [place] Rate: 119 P: 58 MA: 176 QRS: 72 QRSD: 68 T: QT: 350 QTc: 493 Interpretive Statements Sinus tachycardia Low voltage, precordial leads Borderline T abnormalities, diffuse leads Borderline prolonged QT interval Baseline wander in lead(s) II,III,aVR,aVF,V2,V3,V4,V5,V6 Compared to ECG 11/29/2020 14:17:45 Sinus rate has increased Atrial premature complex(es) no longer present Possible ischemia no longer present T-wave abnormality still present Electronically Signed On 11-30-2020 16:28:41 CDT by David Albert [email or web address] <ELECTRONICALLY SIGNED> By: David Albert MD, [facility] 11/30/20 1628 0517 0517 David Albert MD, [facility] /EPI
[2020-11-30 18:42] LABS: CALCIUM 8.1 mg/dL (8.5-10.1); CREATININE 1.4 mg/dL (0.6-1.3); POTASSIUM 5.2 mmol/L (3.5-5.1)
[2020-12-01] VITALS (22 sets, daily range): BP systolic 102–126; BP diastolic 47–70
--- NOTE | 2020-12-01 04:23 | NUR ---
ASSUMED CARE AT 1900H, ON VENT AT 40% AND TOLERATED. ON FENTANYL AND PRECEDEX DRIP, TITRATED. PT OPENED EYES TO PAIN AND FOLLOWED COMMANDS. RE-ORIENT PT. PULMO CALLED WITH ORDERS MADE AND CARRIED OUT. 02 SAT WAS AT 90%, FIO2 UP TO 50%. STILL WITH BLOOD TINGE FROM ETT. CONTINUE MONITORING AND TOWARDS GOALS. FENTANYL AT 100MICS AND PRECEDEX AT 0.2MIC
[2020-12-01 05:51] LABS: HEMATOCRIT 39.2 % (37.0-47.0); MCH 28.9 pg (26.0-34.0); MCHC 33.1 g/dL (28.0-37.0); MCV 87.1 fL (80.0-100.0); MPV 9.7 fl. (7.2-11.1); NUCLEATED RBCS 0 /100WBC; PLATELET COUNT* 154 thou/uL (150-400); RBC 4.49 mil/uL (4.20-5.00); RDW-CV 14.5 % (10.5-14.5)
[2020-12-01 06:17] LABS: ALBUMIN 2.8 g/dL (3.4-5.0); CREATININE 1.4 mg/dL (0.6-1.3); PHOSPHORUS* 3.3 mg/dL (2.5-4.9); POTASSIUM 4.8 mmol/L (3.5-5.1); TOTAL BILIRUBIN 0.6 mg/dL (<0.1-1.0); TOTAL PROTEIN 5.4 g/dL (6.4-8.2)
[2020-12-01 06:55] LABS: ABSOLUTE LYMPHOCYTES 0.1 thou/uL (0.8-5.3); ABSOLUTE MONOCYTES 0.1 thou/uL (0.0-1.2); ABSOLUTE NEUTROPHILS 4.8 thou/uL (1.6-8.1); PLATELET ESTIMATE ADEQUATE
[2020-12-01 08:00] LABS: BE -4.8 mmol/L (-2 to +3); PCO2 46.4 mmHg (35.0-45.0); PO2 64.9 mmHg (75.0-100.0)
[2020-12-01 08:03] LABS: pH 7.291 (7.340-7.450)
[2020-12-01 14:53] LABS: CALCIUM 8.3 mg/dL (8.5-10.1); CREATININE 1.5 mg/dL (0.6-1.3); MAGNESIUM 2.2 mg/dL (1.8-2.4); POTASSIUM 4.7 mmol/L (3.5-5.1)
[2020-12-01 14:54] LABS: ABSOLUTE LYMPHOCYTES 0.3 thou/uL (0.8-5.3); ABSOLUTE MONOCYTES 0.2 thou/uL (0.0-1.2); ABSOLUTE NEUTROPHILS 5.4 thou/uL (1.6-8.1); BASOPHILS 0.1 %; HEMATOCRIT 38.7 % (37.0-47.0); HEMOGLOBIN 12.9 gm/dL (12.0-15.0); MCH 28.9 pg (26.0-34.0); MCHC 33.3 g/dL (28.0-37.0); MCV 86.9 fL (80.0-100.0); MONOCYTES 3.6 %; MPV 9.7 fl. (7.2-11.1); NUCLEATED RBCS 0 /100WBC; PLATELET COUNT* 162 thou/uL (150-400); POLYS 91.3 %; RBC 4.46 mil/uL (4.20-5.00); RDW-CV 14.4 % (10.5-14.5); WBC 5.9 thou/uL (4.0-11.0)
[2020-12-01 15:04] LABS: APTT 28.7 Seconds (25.0-31.3); INR 1.4; PROTIME 14.8 Seconds (9.20-11.50)
--- NOTE | 2020-12-01 16:06 | NUR ---
Patient transferred to icu for elevated troponin, rhabdo and renal failure on 11/30. Patient currently on vent. FiO2 40% and peep 5. Patient on fent and precedex. Rehab is following for rehab vs. SNF placement at discharge. Attempted to call sister Princess 3 times and line remains busy. Will attempt again tomorrow. Princess [phone]
--- NOTE | 2020-12-01 19:21 | CON ---
[address] [address] CONSULTATION Name: ARMANDO MICHAEL Room: [address] IN .R.#: [id number] Admission: 11/29/20 Attend Phys: Castro Stahl Discharge: Date of : 54 Report #: [id number] THIS REPORT FOR: cc: Andrew Kauffmna MD, Bruce D. MD Pervez, Adeel MD ~ DATE OF CONSULTATION: 11/30/2020 Consult has been requested by Dr. Turcios. INDICATION FOR CONSULTATION: Acute hypercarbic respiratory failure. HISTORY OF PRESENT ILLNESS: This is a 70-year-old female, past medical history is as mentioned below. She does have a history of morbid obesity, body mass index is 66. She is on a positive airway pressure device while asleep, long-term. Not known to me whether a CPAP or BiPAP. Also, she is on long-term anticoagulation with Coumadin, take 10 mg of Coumadin daily. I do not have a recent INR available. Her baseline creatinine is normal at 0.8. She has a history of reported fluid overload. Last left ventricular ejection fraction is normal. Last cardiac catheterization shows normal coronaries. She is not known to be a smoker. The patient is now admitted yesterday. She is reported to have fallen out of bed, landing on her knees and arms and was reported to be on the floor for a long period of time as she could not get up to call for help, but she, however, is reported to be awake. Upon presentation, the patient was found to be in acute renal failure with a creatinine of 2.2. She also is in rhabdomyolysis with a CPK initially 12,305. Troponin I was mildly elevated to 0.97 on admission. The patient is reported to be hemodynamically stable and oxygenating adequately on 3 to 4 liters nasal cannula overnight. She is reported to be awake. She had a CT head as well as CT of the C-spine performed. There was no known hemorrhage. This morning, there has been a worsening in the patient's mental status as well as respiratory status. At the time of my evaluation, she has been placed on a BiPAP and was responding only to maximal painful stimuli. There is drop in pH on the BiPAP. The patient's blood pressure is maintained, although it is on the lower side. The patient is oxygenating adequately. She is on the BiPAP at this time. She is also responding only to painful stimuli. Therefore, the patient is unable to provide a further history. REVIEW OF SYSTEMS: Her IV access is limited. PAST MEDICAL HISTORY: Morbid obesity, body mass index 66. Obstructive sleep apnea, is on a CPAP or BiPAP at home long time. [place] [address] CONSULTATION Name: ARMANDO MICHAEL Room: [address] IN ..#: [id number] Admission: 11/29/20 Attend Phys: Castro Stahl Discharge: Date of : 54 Report #: [id number] her being on oxygen long-term. She has had a recent echo, which shows a left ventricular ejection fraction of 65-70%. The right heart is not well visualized. Previous history of pulmonary emboli. She is on Coumadin long time. History of fluid overload. Reported to have had normal coronaries on a cardiac catheterization a couple of years ago at our hospital. Anxiety; herniated back disk; chronic back pain, not known to be on narcotics on admission; diabetes; knee replacement; breast biopsy; hypothyroidism; spinal stenosis. SOCIAL HISTORY: There is history of reported past use of cigarettes. I do not have any details available. No known history of heavy alcohol use or illegal drug use. CURRENT MEDICATIONS: List in [facility] reviewed. HOME MEDICATIONS: List also in [employer] reviewed. FAMILY HISTORY: There is no pertinent family history. ALLERGIES: SHE IS REPORTED TO BE ANXIOUS WITH REGLAN. THIS DOES NOT APPEAR TO BE AN ALLERGY. SHE IS ALSO REPORTED TO HAVE HAD AN ALLERGY TO PENICILLINS; HOWEVER, I SEE DOCUMENTATION OF PREVIOUS USE OF CEPHALOSPORINS WITHOUT DOCUMENTATION OF AN ADVERSE REACTION. PHYSICAL EXAMINATION: GENERAL: She was responding only to maximal painful stimuli, was on a BiPAP which I switched over to 15/5. We did get tidal volumes up to 500, maintaining adequate O2 saturation on 60% BiPAP. VITAL SIGNS: Has a pulse of 120 and a blood pressure of 100/45, O2 saturation 97-98%, afebrile with a temperature of 36.9. Body mass index 56. HEENT: Head is normocephalic and atraumatic. Pupils are bilaterally equal. There is a BiPAP mask in place. There is a narrow airway. Throat examination is limited; however, I do not see any obvious throat erythema. NECK: Does not show raised JVP, asymmetry, mass or lymph nodes. CHEST: Symmetrical expansion on inspection and palpation. On auscultation, breath sounds are bilaterally equal, but decreased. I do not hear any added sounds. HEART: Regular, tachycardia noted. No murmur. ABDOMEN: Soft and nontender. EXTREMITIES: Lower extremities do show 1+ edema. There is no calf tenderness. SKIN: Dry and intact. NEUROLOGICAL: She did move all extremities to pain. LABORATORY DATA: The patient's lab work is in [facility] [address] CONSULTATION Name: ARMANDO MICHAEL Room: [address] IN [facility].#: [id number] Admission: 11/29/20 Attend Phys: Castro Stahl Discharge: Date of : 54 Report #: [id number] IMAGING DATA: Chest x-ray films as well as report from yesterday in [facility] reviewed. C-spine CT as well as CT head reports in [facility] reviewed. ASSESSMENT AND PLAN: 1. Acute hypercarbic respiratory failure. The patient clearly is declining despite being on BiPAP. Recommend proceeding to endotracheal intubation. We have therefore transferred her to the ICU. We will start with p.r.n. Versed and fentanyl and see how much sedation she needs. We will add other sedation as indicated. Initially, I am trying to avoid use of propofol except that she will likely get some for intubation considering rhabdomyolysis, but can be used short term if needed later on. 2. Acute renal failure with rhabdomyolysis. Recommend keeping her well hydrated. If we are able to maintain adequate O2 saturation and ventilate her, then I intend to give her more fluids. We will avoid diuretics. Multiple stat labs are ordered. We will review when these are available. 3. Bronchospasm. It is not fully apparent to me whether the patient has chronic obstructive pulmonary disease in the past. She has used inhalers previously. I will give her nebulized bronchodilators. I will give her Solu-Medrol as well. 4. Pulmonary infiltrates. Only small subtle pulmonary infiltrates noted on x-ray. We will repeat a chest x-ray. We will see where we stand. Meanwhile, I agree with Levaquin. We will send off more cultures and serologies. We will broaden antibiotic coverage as indicated. 5. History of pulmonary emboli/Coumadin use. Stat coagulation studies are ordered. 6. Diabetes. I would expect glucoses to rise with steroids. We will give insulin accordingly. 7. History of back pain. Fentanyl as above. She is not known to be on a narcotic on admission. 8. Limited IV access. Recommend placing a PICC line. 9. Gastrointestinal prophylaxis. We will give her Protonix. 10. Hypotension. Blood pressure is on the lower side. If we are able to ventilate her adequately, I will give her fluids temporarily. We will give her phenylephrine if needed. 11. Clostridium difficile prophylaxis, Lactinex. 12. Deep venous thrombosis prophylaxis. We will review once INR is available. The patient is critically [place] [address] CONSULTATION Name: CURTIS MICHAELJANAE DELAROSA Room: [address] IN ..#: [id number] Admission: 11/29/20 Attend Phys: Castro Stahl Discharge: Date of : 54 Report #: [id number] Total time spent providing critical care to this patient today is about 1 hour. <ELECTRONICALLY SIGNED> By: Al Vazquez MD 12/01/20 1921 1228 1500Al Vazquez MD /nt
[2020-12-02] VITALS (22 sets, daily range): BP systolic 120–150; BP diastolic 51–82
[2020-12-02 03:44] LABS: ABSOLUTE LYMPHOCYTES 0.4 thou/uL (0.8-5.3); ABSOLUTE MONOCYTES 0.3 thou/uL (0.0-1.2); ABSOLUTE NEUTROPHILS 5.2 thou/uL (1.6-8.1); BASOPHILS 0.1 %; HEMATOCRIT 38.7 % (37.0-47.0); HEMOGLOBIN 12.8 gm/dL (12.0-15.0); LYMPHOCYTES 6.9 %; MCH 28.5 pg (26.0-34.0); MCHC 33.1 g/dL (28.0-37.0); MCV 86.3 fL (80.0-100.0); MONOCYTES 4.3 %; MPV 9.5 fl. (7.2-11.1); NUCLEATED RBCS 0 /100WBC; PLATELET COUNT* 170 thou/uL (150-400); POLYS 88.7 %; RBC 4.49 mil/uL (4.20-5.00); RDW-CV 14.3 % (10.5-14.5); WBC 5.8 thou/uL (4.0-11.0)
[2020-12-02 03:53] LABS: INR 1.7; PROTIME 17.4 Seconds (9.20-11.50)
[2020-12-02 04:12] LABS: CALCIUM 8.6 mg/dL (8.5-10.1); CREATININE 1.4 mg/dL (0.6-1.3); MAGNESIUM 2.2 mg/dL (1.8-2.4); POTASSIUM 4.3 mmol/L (3.5-5.1); TOTAL BILIRUBIN 0.7 mg/dL (<0.1-1.0); TOTAL PROTEIN 6.1 g/dL (6.4-8.2)
[2020-12-02 04:17] LABS: PHOSPHORUS* 1.5 mg/dL (2.5-4.9)
--- NOTE | 2020-12-02 05:52 | NUR ---
ASSUMED CARE AT 1915H, ON VENT AT 50% AND TOLERATED. PT FOLLOWED COMMANDS. NO FEVER AND DISTRESS. WITH OCCASIONAL AGITATION, PRN MED GIVEN. TUBE FEEDING STARTED AND IV FLUID STOP. CONTINUE MONITORING AND TOWARDS GOALS.
[2020-12-02 07:49] LABS: BE -2.3 mmol/L (-2 to +3); PCO2 34.6 mmHg (35.0-45.0); PO2 72.1 mmHg (75.0-100.0); pH 7.414 (7.340-7.450)
[2020-12-02 13:16] LABS: PCO2 48.3 mmHg (35.0-45.0); PO2 75.2 mmHg (75.0-100.0); pH 7.323 (7.340-7.450)
--- NOTE | 2020-12-02 15:54 | NUR ---
ICU Rounds: Patient remains on vent (FiO2 50% and peep 8). Fent gtt and TF going. Patient unable to tolerate precedex due to bradycardia. Plan to wean O2 needs down today and tomorrow. Patient to stay through the weekend. Called sister Princess again today and continue to recieve a busy signal. Called Rossana and phone is disconnected. No one at bedside at this time. Will attempt outreach again on Saturday. CM to continue to follow for safe dc planning
[2020-12-03] VITALS (30 sets, daily range): BP systolic 101–178; BP diastolic 50–144
[2020-12-03 03:50] LABS: ABSOLUTE LYMPHOCYTES 0.3 thou/uL (0.8-5.3); ABSOLUTE MONOCYTES 0.3 thou/uL (0.0-1.2); ABSOLUTE NEUTROPHILS 6.1 thou/uL (1.6-8.1); BASOPHILS 0.3 %; HEMOGLOBIN 13.2 gm/dL (12.0-15.0); LYMPHOCYTES 4.9 %; MCV 87.8 fL (80.0-100.0); MONOCYTES 3.8 %; MPV 9.5 fl. (7.2-11.1); NUCLEATED RBCS 0 /100WBC; PLATELET COUNT* 159 thou/uL (150-400); RBC 4.56 mil/uL (4.20-5.00); RDW-CV 14.4 % (10.5-14.5); WBC 6.7 thou/uL (4.0-11.0)
[2020-12-03 04:05] LABS: PROTIME 20.3 Seconds (9.20-11.50)
[2020-12-03 04:09] LABS: ALBUMIN 3.2 g/dL (3.4-5.0); CALCIUM 8.6 mg/dL (8.5-10.1); CREATININE 1.5 mg/dL (0.6-1.3); MAGNESIUM 2.5 mg/dL (1.8-2.4); POTASSIUM 5.3 mmol/L (3.5-5.1); TOTAL BILIRUBIN 0.4 mg/dL (<0.1-1.0); TOTAL PROTEIN 6.5 g/dL (6.4-8.2)
--- NOTE | 2020-12-03 08:40 | NUR ---
ASSUMED PATIENT CARE AT 1900. ASSESSMENTS COMPLETED CHARTED. CARDIAC MONITORING IN PLACE. HOURLY ROUNDING IN PLACE FOR PATIENT SAFETY. FALL PRECAUTIONS IN PLACE FOR PATIENT SAFETY. BED LOCKED AND IN LOWEST POSITION. CLWR.
--- NOTE | 2020-12-03 23:08 | NUR ---
pt given prn xanax tonight before going on bipap. pt yelling out for help continually. bipap taken off at this time. pt refusing to wear stating she cant take it. RT notified, pt placed back on nasal canula.
[2020-12-04] VITALS (17 sets, daily range): BP systolic 124–189; BP diastolic 57–90
[2020-12-04 05:50] LABS: HEMATOCRIT 41.7 % (37.0-47.0); HEMOGLOBIN 13.9 gm/dL (12.0-15.0); MCH 28.8 pg (26.0-34.0); MCHC 33.2 g/dL (28.0-37.0); MCV 86.8 fL (80.0-100.0); MPV 9.3 fl. (7.2-11.1); NUCLEATED RBCS 0 /100WBC; PLATELET COUNT* 161 thou/uL (150-400); RBC 4.81 mil/uL (4.20-5.00); RDW-CV 14.6 % (10.5-14.5); WBC 5.9 thou/uL (4.0-11.0)
[2020-12-04 05:59] LABS: INR 2.1; PROTIME 20.9 Seconds (9.20-11.50)
[2020-12-04 06:02] LABS: ALBUMIN 3.1 g/dL (3.4-5.0); CALCIUM 8.4 mg/dL (8.5-10.1); CREATININE 1.3 mg/dL (0.6-1.3); MAGNESIUM 2.3 mg/dL (1.8-2.4); POTASSIUM 5.3 mmol/L (3.5-5.1); TOTAL BILIRUBIN 0.4 mg/dL (<0.1-1.0); TOTAL PROTEIN 6.4 g/dL (6.4-8.2)
--- NOTE | 2020-12-04 06:48 | NUR ---
PT TRANSFERED TO TELEMETRY FLOOR AT 0630 IN STABLE CONDITION. PT TRANSPORTED PER TELE STAFF X3 WITH O2.
[2020-12-04 08:17] LABS: ABSOLUTE LYMPHOCYTES 0.8 thou/uL (0.8-5.3); ABSOLUTE MONOCYTES 0.2 thou/uL (0.0-1.2); ABSOLUTE NEUTROPHILS 4.8 thou/uL (1.6-8.1); PLATELET ESTIMATE ADEQUATE
[2020-12-05] VITALS: BP 139/61
[2020-12-05 03:45] VITALS: BP 137/58
--- NOTE | 2020-12-05 05:04 | NUR ---
PT A&OX4, VSS ON 3L NC, IV SALINE LOCKED, SR/SA ON TELE MONITOR. PT REPOSITIONED Q2H. PT INITIALLY REFUSED BIPAP, DID COOPERATE WITH PLAN OF CARE AND PLACED ON BIPAP AT APPROX 0400. PT SLEEPING WELL. ASSESSMENTS AND HOURLY ROUNDINGS COMPLETE, WILL CONTINUE TO MONITOR.
[2020-12-05 05:30] LABS: HEMATOCRIT 39.1 % (37.0-47.0); HEMOGLOBIN 13.1 gm/dL (12.0-15.0); MCH 28.8 pg (26.0-34.0); MCHC 33.4 g/dL (28.0-37.0); MPV 9.7 fl. (7.2-11.1); NUCLEATED RBCS 0 /100WBC; PLATELET COUNT* 155 thou/uL (150-400); RBC 4.55 mil/uL (4.20-5.00); WBC 6.8 thou/uL (4.0-11.0)
[2020-12-05 05:33] LABS: INR 2.3; PROTIME 23.7 Seconds (9.20-11.50)
[2020-12-05 05:48] LABS: ALBUMIN 2.6 g/dL (3.4-5.0); CALCIUM 8.2 mg/dL (8.5-10.1); POTASSIUM 4.9 mmol/L (3.5-5.1); TOTAL BILIRUBIN 0.4 mg/dL (<0.1-1.0); TOTAL PROTEIN 5.5 g/dL (6.4-8.2)
[2020-12-05 07:04] LABS: ABSOLUTE LYMPHOCYTES 0.4 thou/uL (0.8-5.3); ABSOLUTE MONOCYTES 0.3 thou/uL (0.0-1.2); ABSOLUTE NEUTROPHILS 6.1 thou/uL (1.6-8.1); METAMYELOCYTES 1 %; PLATELET ESTIMATE ADEQUATE
[2020-12-05 08:51] VITALS: BP 131/75
--- NOTE | 2020-12-05 10:03 | EKG ---
[place] [address] ELECTROCARDIOGRAM REPORT Name: ARMANDO MICHAEL Room: [address] ADM IN .R.#: [id number] Admission: 11/29/20 Attend Phys: Abhi Mabry Discharge: Date of : 54 Date of Service: 12/03/20 1348 Report #: [id number] THIS REPORT FOR: //name// [facility] Test Date: 2020-12-03 Test Time: 13:48:29 Pat Name: ARMANDO MICHAEL Department: Room: [facility] Gender: F Technical Intern: PEDRO PABLO : 1950 Requested By: Al Vazquez Order Number: [id number] Hebert MD: Bob Castillo Measurements Intervals [place] Rate: 86 P: 45 [place]: 177 QRS: 32 QRSD: 98 T: -8 QT: 354 QTc: 424 Interpretive Statements Sinus rhythm Low voltage, precordial leads Nonspecific T abnrm, anterolateral leads Compared to ECG 11/30/2020 05:17:58 Sinus tachycardia no longer present Electronically Signed On 12-05-2020 10:03:10 CDT by Bob Castillo [email or web address] <ELECTRONICALLY SIGNED> By: Bob Castillo MD, FACC 12/05/20 1003 1348 1348 Bob Castillo MD, FAC /EPI
[2020-12-05 12:00] VITALS: BP 117/68
--- NOTE | 2020-12-05 15:20 | NUR ---
THIS GEOPHYSICIST IS IN AGREEMENT WITH DOCUMENTED TREATMENT NOTE BY FLORI SANTOS FOR THIS DAY. JUANITA DE LEONT
--- NOTE | 2020-12-05 15:44 | NUR ---
PLAN OF CARE: PHYSICIAN INFORMS OF PLAN FOR PT TO HAVE CT DONE TODAY. PULM CONSULTED. INPT [facility]U COSULT PENDING VS SNF. CM WILL REMAIN AVAILABLE TO ASSIST AND FOLLOW NEEDED.
[2020-12-05 16:00] VITALS: BP 134/69
[2020-12-05 20:00] VITALS: BP 151/76
[2020-12-06 00:12] VITALS: BP 131/77
--- NOTE | 2020-12-06 04:20 | NUR ---
ASSUMED PT CARE AT APPROX. 1930. PT A/OX4. VSS. PT IS TRACING SR/AFIB ON THE MISSION PLANNER. 1+ EDEMA NOTED TO BLLE AND GENERALIZED EDEMA. PT IS ON RA. PT USES BIPAP AT [facility]. PT REQUESTED MEDICATION TO HELP W/ SLEEP AND ANXIETY W/ BIPAP. MEDICATIONS ADMINISTERED PRESCRIBED. SEE EMAR. PT HAD A BM YESTERDAY. PT RESTED DURING THE NOC. FALL PRECAUTIONS IN PLACE FOR SAFETY. HOURLY ROUNDS COMPLETE CHARTED. WILL CONT. TO MONITOR.
[2020-12-06 04:46] VITALS: BP 103/70
[2020-12-06 04:47] LABS: ABSOLUTE LYMPHOCYTES 0.6 thou/uL (0.8-5.3); ABSOLUTE MONOCYTES 0.4 thou/uL (0.0-1.2); ABSOLUTE NEUTROPHILS 6.8 thou/uL (1.6-8.1); BASOPHILS 0.1 %; HEMATOCRIT 39.3 % (37.0-47.0); HEMOGLOBIN 13.1 gm/dL (12.0-15.0); LYMPHOCYTES 7.5 %; MCH 28.4 pg (26.0-34.0); MCHC 33.2 g/dL (28.0-37.0); MCV 85.4 fL (80.0-100.0); MPV 9.5 fl. (7.2-11.1); NUCLEATED RBCS 0 /100WBC; PLATELET COUNT* 141 thou/uL (150-400); POLYS 87.4 %; WBC 7.8 thou/uL (4.0-11.0)
[2020-12-06 05:29] LABS: INR 2.8; PROTIME 27.8 Seconds (9.20-11.50)
[2020-12-06 05:40] LABS: PREALBUMIN 21.1 mg/dL (18.0-35.7)
[2020-12-06 05:46] LABS: ALBUMIN 2.7 g/dL (3.4-5.0); CALCIUM 8.1 mg/dL (8.5-10.1); POTASSIUM 4.7 mmol/L (3.5-5.1); TOTAL BILIRUBIN 0.6 mg/dL (<0.1-1.0); TOTAL PROTEIN 5.5 g/dL (6.4-8.2)
[2020-12-06 08:30] VITALS: BP 120/68
[2020-12-06 12:00] VITALS: BP 146/81
--- NOTE | 2020-12-06 14:31 | NUR ---
PLAN OF CARE: PHYSICIAN INFORMS OF PLAN FOR THE PT TO D/C TODAY TO INPT [facility]U HERE PENDING INSURANCE AUTH. [facility]PT [facility] ANTICIPATES THAT AUTH WILL BE RECEIVED TODAY. CM WILL REMAIN AVAILABLE TO ASSIST AND FOLLOW NEEDED.
--- NOTE | 2020-12-06 15:20 | NUR ---
PT A&OX4, ANXIOUS, HR AFIB, CONTINUES TO HAVE TREMORS. PT IS SITTING UP IN HER CHAIR WATCHING TV.
[2020-12-06 16:00] VITALS: BP 139/84
[2020-12-06 20:00] VITALS: BP 169/77
[2020-12-07 04:00] VITALS: BP 107/62
[2020-12-07 04:41] LABS: INR 3.3; PROTIME 32.7 Seconds (9.20-11.50)
--- NOTE | 2020-12-07 05:02 | NUR ---
ASSUMED PT CARE AT APPROX. 1930. PT A/OX4. VSS. PT IS TRACING SR ON THE SENIOR QA ANALYST. 1+ EDEMA NOTED TO BLLE AND GENERALIZED EDEMA. PT IS ON RA. PT USES BIPAP AT [facility]. PT REQUESTED MEDICATION TO HELP W/ SLEEP AND ANXIETY W/ BIPAP. MEDICATIONS ADMINISTERED PRESCRIBED. SEE EMAR. PT HAD A BM YESTERDAY. PT RESTED DURING THE NOC. FALL PRECAUTIONS IN PLACE FOR SAFETY. HOURLY ROUNDS COMPLETE CHARTED. WILL CONT. TO MONITOR.
[2020-12-07 08:00] VITALS: BP 100/62
[2020-12-07 12:00] VITALS: BP 140/79
[2020-12-07 16:00] VITALS: BP 124/84
--- NOTE | 2020-12-07 17:26 | NUR ---
ASSUMED CARE OF PT AT 0730. PT A&0X4, DENIES ANY PAIN OR SHORTNESS OF BREATH THROUGHOUT SHIFT. PT DOES HAVE ANXIETY-PRN XANAX GIVEN WITH RELIEF. TRACING SR ON THE TIE CUTTER. ON RA SAT UPPER 90'S. PT UP WITH 1 MOD ASSIST TO RECLINER OR BSC. WEAKNESS NOTED. PT UP TO RECLINER FOR MEALS TODAY-TOLERATED WELL. REHAB CONSULT IN PLACE. AWAITING DISCHARGE TO IN REHAB UNIT. AM ASSESSMENT CHARTED. MEDICATIONS PER JUL. PT REPOSITIONED EVERY 2 HOURS FOR COMFORT. HOURLY ROUNDING OBSERVED. BED IN LOW POSITION. BED ALARM IN PLACE. FALL PRECAUTIONS IN PLACE. CALL LIGHT WITHIN REACH. WILL CONTINUE PLAN OF CARE.
[2020-12-07 20:00] VITALS: BP 132/88
[2020-12-08] VITALS (7 sets, daily range): BP systolic 108–151; BP diastolic 52–92
[2020-12-08 05:06] LABS: INR 2.3
--- NOTE | 2020-12-08 05:49 | NUR ---
PATIENT SLEPT WELL DURING THIS SHIFT. PT ATTEMPTED TO HAVE BOWEL MOVEMENT ON BEDPAN BUT WAS UNSUCCESSFUL. PT VOIDS YELLOW URINE. PT ASSISTED WITH TURNS Q2H PER PROTOCAL. PT WITH INTERDRY IN LOWER ABDOMINAL FOLDS. PT WITH ABRASIONS ON RT KNEE AND BILATERAL ELBOWS. VITALS WNL. PT IS ON ROOM AIR WITH BIPAP AT NIGHT. 2100 BLOOD SUGAR AT 221; LISPRO 10 UNITS GIVEN. PT IS IN SR ON CARIDAC MONITOR. FREQUENTLY USED ITEMS AND CALL LIGHT WITHIN REACH. SIDERAILS UPX3 AND BED ALARM ON. WILL CONTINUE TO MONITOR.
--- NOTE | 2020-12-08 16:00 | NUR ---
PLAN OF CARE: INPT ARU LIAISON INFORMS THAT THE PT'S INSURANCE REQUESTED [id number] FOR AUTH, AND THAT HAS BEEN DENIED. PT REQUEST SNF AT #1 [facility], #[facility], AND #3 [facility]. CM CALLED AND FAXED PT'S CLINICAL INFO AND PT/OT NOTES TO [facility]. CM TECH ALSO FAXED INFO TO [employer]. PT PENDING ACCEPTANCE AT [facility], AND WILL NEED INSURANCE AUTH IF CLINICALLY ACCEPTED. CM WILL REMAIN AVAILABLE TO ASSIST AND FOLLOW NEEDED.
--- NOTE | 2020-12-08 20:17 | NUR ---
A&OX 4, PWD. MORBIDLY OBESE. UP WITH ASSIST AND WALKER. WOUNDS NOTED TO TESFAYE. ELBOWS AND RIGHT LATERAL LOWER LEG. DRESSING CHANGED AND WOUNDS CLEANSED WITH SOAP AND WATER NEW DRESSINGS REAPPLIED. ALSO NOTED RIGHT BUTTOCK SHEARING AREA RED. HEART TONES REG. SR ON MONITOR. IV TRIPLE LUMEN RIGHT UPPER ARM. DRESSING CHANGED TODAY. SITE WITHOUT REDNESS. +BS X 4 QUADS. PEDAL PULSE PRESENT. RIGHT FOOT 2+ EDEMA, LEFT FOOT 1+ EDEMA. JUST GENERALIZED BODY EDEMA NOTED. HAD LARGE BM THIS SHIFT. BLOOD SUGARS GOOD B-75, L-137, D-171 PT DID GET SLIDING SCALE WITH LUNCH AND DINNER. C/O BACK PAIN X 2 AND RECEIVED FENT. 50MCG BOTH TIMES WITH SOME RELIEF. NO OTHER C/O. WILL CONTINUE TO MONITOR.
[2020-12-09 04:09] VITALS: BP 107/52
--- NOTE | 2020-12-09 04:30 | NUR ---
PATIENT SLEPT WELL DURING THIS SHIFT. PT ASSISTED WITH TURNS Q2H PER PROTOCAL. PT VOIDS PER BEDPAN OR UP WITH ASSIST OF TWO TO BSC. PT ON ROOM AIR BUT WEARS BIPAP AT NIGHT. PT WITH TRIPLE LUMAN PICC IN RT UPPER ARM; ABLE TO DRAW/FLUSH WITH NO RESISTANCE. PT WITH 2100 BLOOD SUGAR OF 216; LISPRO 10 UNITS GIVEN. PT WITH DSGS ON RT OUTER LOWER EXTREMITY, BILAT BOTH ELBOWS. PT C/O BACK PAIN; FENTANYL 50MCG IV GIVEN. PT IN SR ON WAREHOUSE ORDER PULLER. FREQUENTLY USED ITEMS AND CALL LIGHT WITHIN REACH. SIDERAILS UPX3 AND BED ALARM ON. WILL CONTINUE TO MONITOR.
[2020-12-09 08:45] VITALS: BP 131/58
[2020-12-09 12:49] VITALS: BP 126/71
--- NOTE | 2020-12-09 13:45 | NUR ---
PLAN OF CARE: PHYSICIAN INFORMS THAT PT IS NEDICALLY STABLE FOR SNF. PT'S CHOSEN FACILITY [facility] CLINICALLY ACCEPTED PT, BUT NEED TO OBTAIN INSURANCE AUTH AND REQUESTED UPDATED PT/OT NOTES. PT/OT INFORMED, AND NOT JUST AWAITING OT NOTE. HOPEFUL TO GET THIS TODAY. CM WILL REMAIN AVAILABLE TO ASSIST AND FOLLOW NEEDED. [facility] PHONE: [phone] FAX: [phone]
[2020-12-09 19:52] VITALS: BP 113/80
[2020-12-09 20:00] VITALS: BP 150/84
[2020-12-10] VITALS: BP 135/81
--- NOTE | 2020-12-10 04:38 | NUR ---
PATIENT SLEPT WELL DURING THIS SHIFT. PT IS ON ROOM AIR BUT WEARS BIPAP DURING THE NIGHT. PT RECEIVED FENTANYL 50MCG IV AT HS FOR BACK PAIN. PT DENIES PAIN AT THIS TIME. PT USES CALL LIGHT APPROPRIATELY FOR ASSISTANCE TO BSC. PT UP WITH USE OF WALKER AND STANDY; VOIDS YELLOW URINE. PT TURNED Q2H PER PROTOCAL BUT DOES REFUSE AT TIMES. DRESSINGS ON RT OUTER LOWER EXTREMITY AND BILAT ELBOWS IN PLACE. FREQUENTLY USED ITEMS AND CALL LIGHT WITHIN REACH. SIDERAILS UPX3 AND BED ALARM ON. WILL CONTINUE TO MONITOR.
[2020-12-10 04:54] VITALS: BP 144/84
[2020-12-10 13:47] VITALS: BP 130/67
[2020-12-10 19:28] VITALS: BP 148/80
[2020-12-10 20:30] VITALS: BP 156/73
--- NOTE | 2020-12-11 06:25 | NUR ---
PT A&O X 4. VSS ON RA. BIPAP HS. MEDS GIVEN ORDERED. C/O BACK PAIN, TYLENOL GIVEN. XANAX GIVEN PER PT REQUEST. UP TO BSC WITH ASSIST. DRESSINGS C/D/I. CALL LIGHT WITHIN REACH. WILL CONTINUE TO MONITOR.
[2020-12-11 06:58] LABS: HEMATOCRIT 38.9 % (37.0-47.0); HEMOGLOBIN 12.8 gm/dL (12.0-15.0); MCH 28.7 pg (26.0-34.0); MCV 87.1 fL (80.0-100.0); MPV 10.1 fl. (7.2-11.1); RBC 4.46 mil/uL (4.20-5.00); RDW-CV 14.6 % (10.5-14.5); WBC 10.8 thou/uL (4.0-11.0)
[2020-12-11 07:07] LABS: PROTIME 20.3 Seconds (9.20-11.50)
[2020-12-11 07:26] LABS: CREATININE 0.7 mg/dL (0.6-1.3)
[2020-12-11 08:36] VITALS: BP 119/67
[2020-12-11 19:32] VITALS: BP 131/77
[2020-12-11 20:15] VITALS: BP 142/62
--- NOTE | 2020-12-12 05:09 | NUR ---
PT A&O X 4 VSS ON RA. BIPAP AT NIGHT. MEDS GIVEN ORDERED. UP TO BSC WITH ASSIST. DRESSINGS C/D/I. CALL LIGHT WITHIN REACH. WILL CONTINUE TO MONITOR.
[2020-12-12 06:03] LABS: INR 2.2; PROTIME 22.1 Seconds (9.20-11.50)
[2020-12-12 08:17] VITALS: BP 118/64; BP 132/70
--- NOTE | 2020-12-12 13:36 | NUR ---
PHYSICIAN INFORMS OF PLAN FOR THE PT TO D/C TO SNF AT [facility] TODAY. [facility] HAS RECEIVED INSURANCE AUTH, AND CAN ACCEPT THE PT TODAY. CM CURRENTLY AWAITING RETURN CALL FROM R.T. TO DETERMINE BIPAP SETTINGS, THE PT WILL NEED BIPAP AT THE FACILITY. THE FACILITY IS UNABLE TO ARRANGE BIPAP FOR THE PT WITHOUT THE SETTINGS, AND IT TAKES 4 HRS TO ARRANGE THIS. CM INFORMED RN AND PHYSICIAN OF THIS. CM PROVIDED RN IN-CHARGE OF THE PT THE NUMBER FOR REPORT. W/C YESSENIA AGRAWAL ARRANGED FOR [phone]. CM WILL REMAIN AVAILABLE TO ASSIST AND FOLLOW NEEDED. [facility] PHONE: [phone] FAX: [phone]
--- NOTE | 2020-12-12 14:23 | NUR ---
AM ASSESSMENT AND VITAL SIGNS COMPLETED DOCUMENTED. PT HAS BEEN ACCEPTED AT [facility]. PICC LINE DC'D, PRESSURE HELD UNTIL HEMOSTASIS ACHEIVED. REPORT CALLED TO NURSE AT [facility]. PT TRANSPORTED VIA [employer]CHA[employer] AND TRANSPORTER. PT DISCHARGED IN STABLE CONDITION.
== END 2020-12-12 14:29 | DRG 208 ==
LOC: M.ERS 14:00 → M.TBA-ER 15:34 → M.2W 15:34 → M.ICU 15:34 → M.2W 18:59 → M.ICU 11-30 13:12 → M.2W 12-04 06:41
PROVIDERS: Emergency Medicine Emergency Medical Services; Internal Medicine; Internal Medicine Critical Care Medicine; ADMIT Internal Medicine; ATTEND Internal Medicine
DX: J96.21 Acute and chronic respiratory failure with hypoxia (principal); I21.4 Non-ST elevation (NSTEMI) myocardial infarction; N17.0 Acute kidney failure with tubular necrosis; N39.0 Urinary tract infection, site not specified; E66.2 Morbid (severe) obesity with alveolar hypoventilation; Z68.44 Body mass index [BMI] 60.0-69.9, adult; T79.6XXA Traumatic ischemia of muscle, initial encounter; J96.22 Acute and chronic respiratory failure with hypercapnia; R74.01 Elevation of levels of liver transaminase levels; R31.9 Hematuria, unspecified; E11.9 Type 2 diabetes mellitus without complications; G89.29 Other chronic pain; F32.9 Major depressive disorder, single episode, unspecified; M54.9 Dorsalgia, unspecified; W19.XXXA Unspecified fall, initial encounter; I50.9 Heart failure, unspecified; I95.9 Hypotension, unspecified; M48.061 Spinal stenosis, lumbar region without neurogenic claudication; E03.9 Hypothyroidism, unspecified; Z20.822 Contact with and (suspected) exposure to COVID-19; Z96.653 Presence of artificial knee joint, bilateral; F41.1 Generalized anxiety disorder; Z90.710 Acquired absence of both cervix and uterus; Z88.0 Allergy status to penicillin; Z79.84 Long term (current) use of oral hypoglycemic drugs; Z79.899 Other long term (current) drug therapy; Z88.8 Allergy status to other drugs, medicaments and biological substances; Z79.01 Long term (current) use of anticoagulants; Y93.89 Activity, other specified; Y92.89 Other specified places as the place of occurrence of the external cause; Y99.8 Other external cause status

== ENCOUNTER 2021-05-16 11:00 | Emergency (ER) | payer OTHER, MEDICAID ==
[~2021-05-16] VITALS: Ht 165.1 cm; Wt 186.0 kg
[2021-05-16 13:50] LABS: INFLUENZA A ANTIGEN Negative (Negative); INFLUENZA B ANTIGEN Negative (Negative)
[2021-05-16 15:56] LABS: URINE BILIRUBIN NEGATIVE (Negative); URINE BLOOD NEGATIVE (Negative); URINE CLARITY CLEAR; URINE COLOR YELLOW; URINE GLUCOSE-RANDOM 3+ (Negative); URINE KETONES NEGATIVE (Negative); URINE LEUKOCYTES-REFLEX NEGATIVE (Negative); URINE NITRITE-REFLEX NEGATIVE (Negative); URINE PROTEIN NEGATIVE (Negative); URINE SPECIFIC GRAVITY 1.025 (1.005-1.030); URINE UROBILINOGEN 0.2 E.U./dl (0.2-1.0)
[2021-05-16 17:30] LABS: ABSOLUTE EOSINOPHILS 0.1 thou/uL (0.0-0.7); ABSOLUTE LYMPHOCYTES 1.9 thou/uL (0.8-5.3); ABSOLUTE MONOCYTES 0.5 thou/uL (0.0-1.2); ABSOLUTE NEUTROPHILS 3.7 thou/uL (1.6-8.1); BASOPHILS 0.6 %; EOSINOPHILS 1.1 %; HEMATOCRIT 42.1 % (37.0-47.0); HEMOGLOBIN 13.5 gm/dL (12.0-15.0); LYMPHOCYTES 30.7 %; MCH 27.6 pg (26.0-34.0); MCHC 32.2 g/dL (28.0-37.0); MCV 85.8 fL (80.0-100.0); MONOCYTES 7.8 %; MPV 9.2 fl. (7.2-11.1); NUCLEATED RBCS 0 /100WBC; PLATELET COUNT* 148 thou/uL (150-400); POLYS 59.8 %; RDW-CV 15.3 % (10.5-14.5); WBC 6.1 thou/uL (4.0-11.0)
[2021-05-16 17:39] LABS: CALCIUM 8.2 mg/dL (8.5-10.1)
[2021-05-16 17:43] LABS: ALBUMIN 3.3 g/dL (3.4-5.0); TOTAL BILIRUBIN 0.4 mg/dL (<0.1-1.0); TOTAL PROTEIN 6.9 g/dL (6.4-8.2)
[2021-05-16] MEDS ORDERED: ZANAFLEX4 MG PO (18:01)
[2021-05-16] MEDS ORDERED: MEDROLDOSEPACK PO (18:01)
[2021-05-16 18:30] VITALS: BP 127/57
== END 2021-05-16 18:33 | disposition home or self-care (01) ==
LOC: M.ERS 11:00
PROVIDERS: Nurse Practitioner Family
DX: M54.50 Low back pain, unspecified (principal); Z20.822 Contact with and (suspected) exposure to COVID-19; R42 Dizziness and giddiness; E11.42 Type 2 diabetes mellitus with diabetic polyneuropathy; F32.9 Major depressive disorder, single episode, unspecified; R35.0 Frequency of micturition; F41.9 Anxiety disorder, unspecified; E03.9 Hypothyroidism, unspecified; E66.01 Morbid (severe) obesity due to excess calories; M19.90 Unspecified osteoarthritis, unspecified site; I50.9 Heart failure, unspecified; Z88.8 Allergy status to other drugs, medicaments and biological substances; Z96.653 Presence of artificial knee joint, bilateral; Z88.0 Allergy status to penicillin; Z87.891 Personal history of nicotine dependence; Z79.899 Other long term (current) drug therapy; Z79.01 Long term (current) use of anticoagulants